=== PATIENT | female | born 1935 | race Caucasian/White ===

== ENCOUNTER → 2017-01-21 | Outpatient (CLI) | payer MEDICARE ==
--- NOTE | 2017-01-21 10:53 | MM ---
Reason for exam: follow-up at short interval from prior study. Last mammogram was performed 6 months ago. History: Patient is postmenopausal. Benign US biopsy breast VAD LT of the left breast, July 23, 2016. Benign excisional biopsy of the right breast, 1971. Took estrogen for 18 years beginning at age 58. Physical Findings: Nurse did not find any significant physical abnormalities on exam. MG 3D Diag Mammo W/Cad LT CC and MLO view(s) were taken of the left breast. Prior study comparison: July 23, 2016, left breast MG diagnostic mammo LT wo CAD. June 27, 2016, left breast MG work up mamm w CAD LT. April 18, 2015, bilateral MG screening mammo w CAD. May 12, 2013, bilateral digital screening mammo w/CAD. There are scattered fibroglandular densities. Previous mammotome biopsy in the left breast. The originally questioned subareolar asymmetry is less defined without any persisting abnormality on 3D. At the clip site, there is new asymmetry on the MLO, presumed post biopsy change. NO CC correlate. Reassess in 6 months. These results were verbally communicated with the patient and result sheet given to the patient on 01/21/17. ASSESSMENT: Probably benign, BI-RAD 3 RECOMMENDATION: Follow-up diagnostic mammogram of both breasts in 6 months.
== END | disposition home or self-care (01) ==
LOC: RADMAMWWP 10:01
PROVIDERS: ATTEND Surgery
DX: R92.8 Other abnormal and inconclusive findings on diagnostic imaging of breast (principal)
CPT/HCPCS: G0206; G0279

== ENCOUNTER → 2017-03-31 | Outpatient (CLI) | payer MEDICARE ==
[2017-03-31 11:10] LABS: Blood Urea Nitrogen 17 mg/dL (7-17); Non-African American GFR(MDRD) >60 (>60 ml/min/1.73 sqM)
--- NOTE | 2017-03-31 13:00 | CT ---
EXAMINATION TYPE: CT abdomen pelvis w con DATE OF EXAM: 03/31/2017 12:50 PM COMPARISON: 03/21/2010 HISTORY: Left lower quadrant abdominal pain CT DLP: 621.6 mGycm CONTRAST: CT scan of the abdomen and pelvis is performed with Oral Contrast and with IV Contrast, patient injec kraig with 100 mL of Omnipaque 300. FINDINGS: LUNG BASES-: No visible nodule. No infiltrate. LIVER/GB: No calcified gallstones. No space occupying hepatic lesion. Biliary tree is of normal ca liber. PANCREAS: No inflammation. No distinct mass. SPLEEN: No splenic enlargement. Several small hypoattenuating splenic lesions may reflect cysts or h emangiomas. ADRENALS: No nodule. No thickening. KIDNEYS/BLADDER: No hydronephrosis. No nephrolithiasis. Simple cyst upper pole right kidney measur ing 1.7 cm. Renal parenchymal thinning mid pole left kidney. Extrarenal pelvis seen bilaterally. Urin sekou bladder grossly unremarkable. BOWEL: Normal appendix. Normal bowel caliber. No inflammation. There is moderate fecal stasis. GENITAL ORGANS: No gross abnormality. LYMPH NODES: No greater than 1cm abdominal or pelvic lymph nodes are appreciated. AORTA: No significant abnormality. OSSEOUS STRUCTURES: Degenerative changes of the spine with the thoracolumbar scoliosis. OTHER: No significant additional abnormality is seen. IMPRESSION: 1. No significant abnormality to account for the patient's symptoms.
== END | disposition home or self-care (01) ==
LOC: RADCTMAIN 10:23
PROVIDERS: ATTEND Surgery
DX: R10.84 Generalized abdominal pain (principal)
CPT/HCPCS: 82565; 84520; 74177; Q9967

== ENCOUNTER 2017-05-07 06:53 | Day surgery (SDC) | payer MEDICARE ==
[2017-05-05 16:14] VITALS: BMI 26.5
[~2017-05-07 06:53] MED LIST: LACTATED RINGERS 1,000 ML IV SCH
[2017-05-07 07:17] VITALS: TEMP 98
[2017-05-07] MEDS ORDERED: PROPOFOL 10 MG/ML 20 ML VIAL IV ONE (07:36)
[2017-05-07] MEDS ORDERED: LIDOCAINE 1% INJ 10MG/ML (20 ML MDV) ONE (07:36)
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
--- NOTE | 2017-05-07 07:55 | P.OP ---
Date of Procedure: 05/07/17 Preoperative Diagnosis: Left lower quadrant pain Postoperative Diagnosis: Mild diverticulosis Right colon polyp Procedure(s) Performed: Colonoscopy Implants: Anesthesia: MAC Surgeon: Lucio Thomas Pathology: other (Right colon polyp) Condition: stable Disposition: PACU Indications for Procedure: Operative Findings: Description of Procedure: The patient's placed on the endoscopy table lateral position. He received IV sedation. Digital rectal exam was performed which revealed no abnormalities. Flexible colonoscope was then placed patient anus and passed throughout the entire colon. The ileocecal valve was visualized. The cecum was visualized. There was a small polyp seen. This removed the forcep. The remainder of the ascending colon and transverse colon appeared normal. In the descending; was mild diverticular changes. Scope was brought back the rectum and this appeared normal. Scope was withdrawn for patient.
[2017-05-07 08:02] VITALS: RESP 16
[2017-05-07 08:15] VITALS: BP 159/74; PULSE 60
== END 2017-05-07 09:04 | disposition home or self-care (01) ==
LOC: ORWHC2ENDO 06:53
PROVIDERS: ATTEND Surgery
DX: D12.2 Benign neoplasm of ascending colon (principal); K57.30 Diverticulosis of large intestine without perforation or abscess without bleeding; E78.5 Hyperlipidemia, unspecified; I10 Essential (primary) hypertension; G40.909 Epilepsy, unspecified, not intractable, without status epilepticus; E07.9 Disorder of thyroid, unspecified; Z79.82 Long term (current) use of aspirin; Z79.899 Other long term (current) drug therapy; Z88.1 Allergy status to other antibiotic agents; Z88.5 Allergy status to narcotic agent; Z88.8 Allergy status to other drugs, medicaments and biological substances; Z88.6 Allergy status to analgesic agent
CPT/HCPCS: 88305; 45380; J2001; J2704

== ENCOUNTER 2017-06-29 15:31 | Emergency (ER) | payer MEDICARE ==
[2017-06-29 15:43] VITALS: RESP 16
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
[2017-06-29 16:55] LABS: Basophils % (A) 1 %; CH 30.5; CHCM 33.2; Eosinophils # (A) 0.1 k/uL (0-0.7); Eosinophils % (A) 3 %; HCT 41.9 % (34.0-46.0); HDW 2.34; HGB 13.6 gm/dL (11.4-16.0); Luc # (Auto) 0.09; Luc % (Auto) 2; Lymphocytes # (A) 1.7 k/uL (1.0-4.8); Lymphocytes % (A) 34 %; MCH 30.1 pg (25.0-35.0); MCHC 32.6 g/dL (31.0-37.0); MCV 92.2 fL (80.0-100.0); Mean Platelet Volume 8.9; Monocytes # (A) 0.3 k/uL (0-1.0); Monocytes % (A) 6 %; Neutrophils # (A) 2.8 k/uL (1.3-7.7); Neutrophils % (A) 55 %; RBC 4.54 m/uL (3.80-5.40); RDW 14.4 % (11.5-15.5); WBC 5.1 k/uL (3.8-10.6); WBC (Perox) 5.11
[2017-06-29 17:00] LABS: ALT 33 U/L (9-52); AST 41 U/L (14-36); Alkaline Phosphatase 97 U/L (38-126); Anion Gap 9 mmol/L; Blood Urea Nitrogen 15 mg/dL (7-17); Calcium 9.9 mg/dL (8.4-10.2); Carbon Dioxide 26 mmol/L (22-30); Chloride 105 mmol/L (98-107); Glucose 105 mg/dL (74-99); Non-African American GFR(MDRD) >60 (>60 ml/min/1.73 sqM); Sodium 140 mmol/L (137-145); Total Bilirubin 0.5 mg/dL (0.2-1.3); Total Protein 7.5 g/dL (6.3-8.2)
[2017-06-29 17:04] LABS: Appearance,Urine Clear (Clear); Bilirubin,Urine Negative (Negative); Glucose,Urine (UA) Negative (Negative); Ketones,Urine Negative (Negative); Leukocyte Esterase,Urine Negative (Negative); Nitrite,Urine Negative (Negative); Protein,Urine Negative (Negative); Specific Gravity,Urine 1.004 (1.001-1.035); UA Billing (MACRO vs. MICRO) CHEM; Urobilinogen,Urine <2.0 mg/dL (<2.0)
--- NOTE | 2017-06-29 17:10 | XR ---
EXAMINATION TYPE: XR chest 2V DATE OF EXAM: 06/29/2017 COMPARISON: 07/31/2015 HISTORY: Shortness of breath, fatigue and lower extremity swelling. History of hypertension. TECHNIQUE: Frontal and lateral views of the chest are obtained. FINDINGS: There is no focal air space opacity, pleural effusion, or pneumothorax seen. The cardiac silhouette size is again prominent. No acute fracture is seen. Old fracture deformities are seen on t he right. S-shaped scoliotic curvature is appreciated of the visualized thoracolumbar spine, slightly deviating the superior mediastinum. There is also generalized osseous demineralization. IMPRESSION: No acute cardiopulmonary process, unchanged from the prior.
--- NOTE | 2017-06-29 18:42 | US ---
EXAMINATION TYPE: US venous doppler duplex LE LT DATE OF EXAM: 06/29/2017 6:27 PM COMPARISON: NONE CLINICAL HISTORY: Swelling. left leg edema SIDE PERFORMED: Left TECHNIQUE: The lower extremity deep venous system is examined utilizing real time linear array sonog traci with graded compression, doppler sonography and color-flow sonography. VESSELS IMAGED: External Iliac Vein (EIV) Common Femoral Vein Deep Femoral Vein Greater Saphenous Vein * Femoral Vein Popliteal Vein Small Saphenous Vein * Proximal Calf Veins (* superficial vessels) Left Leg: No evidence of DVT Grayscale, color doppler, spectral doppler imaging performed of the deep veins of the lower extremiti es. There is normal flow, compressibility, vascular waveforms bilaterally. IMPRESSION: No evidence of deep venous thrombosis of the left lower extremity.
[2017-06-29 18:53] VITALS: BP 179/86; PULSE 69; TEMP 98.3
== END 2017-06-29 19:05 | disposition home or self-care (01) ==
LOC: EC 15:31
DX: R53.83 Other fatigue (principal); M79.89 Other specified soft tissue disorders; R06.02 Shortness of breath; R00.2 Palpitations; E78.5 Hyperlipidemia, unspecified; I10 Essential (primary) hypertension; E07.9 Disorder of thyroid, unspecified; G40.909 Epilepsy, unspecified, not intractable, without status epilepticus; Z88.1 Allergy status to other antibiotic agents; Z88.5 Allergy status to narcotic agent; Z88.8 Allergy status to other drugs, medicaments and biological substances; Z91.018 Allergy to other foods; Z79.82 Long term (current) use of aspirin; Z79.899 Other long term (current) drug therapy
CPT/HCPCS: 36415; 71020; 80053; 81003; 83735; 83880; 84443; 85025; 86850; 86900; 86901; 87086; 93005; 99285

== ENCOUNTER 2017-07-12 10:26 | Emergency (ER) | payer MEDICARE ==
[2017-07-12 10:33] VITALS: RESP 18; TEMP 98.9
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
[2017-07-12 11:11] VITALS: BP 149/67
[2017-07-12 11:12] LABS: Basophils % (A) 1 %; CHCM 33.1; Eosinophils # (A) 0.1 k/uL (0-0.7); Eosinophils % (A) 2 %; HCT 41.1 % (34.0-46.0); Luc # (Auto) 0.12; Luc % (Auto) 2; Lymphocytes # (A) 1.4 k/uL (1.0-4.8); Lymphocytes % (A) 28 %; MCH 30.9 pg (25.0-35.0); Mean Platelet Volume 8.7; Monocytes # (A) 0.4 k/uL (0-1.0); Monocytes % (A) 7 %; Neutrophils % (A) 60 %; RBC 4.52 m/uL (3.80-5.40); RDW 13.7 % (11.5-15.5); WBC 5.1 k/uL (3.8-10.6); WBC (Perox) 4.95
[2017-07-12 11:25] LABS: ALT 29 U/L (9-52); AST 33 U/L (14-36); Alkaline Phosphatase 104 U/L (38-126); Anion Gap 9 mmol/L; Blood Urea Nitrogen 15 mg/dL (7-17); Calcium 9.6 mg/dL (8.4-10.2); Carbon Dioxide 28 mmol/L (22-30); Chloride 105 mmol/L (98-107); Glucose 104 mg/dL (74-99); Magnesium 1.7 mg/dL (1.6-2.3); Non-African American GFR(MDRD) >60 (>60 ml/min/1.73 sqM); Sodium 142 mmol/L (137-145); Total Bilirubin 0.1 mg/dL (0.2-1.3); Total Protein 6.9 g/dL (6.3-8.2)
--- NOTE | 2017-07-12 11:26 | XR ---
EXAMINATION TYPE: XR chest 2V DATE OF EXAM: 07/12/2017 COMPARISON: 06/29/2017 INDICATION: Difficulty breathing, dyspnea TECHNIQUE: Frontal and lateral views of the chest are obtained. FINDINGS: The heart size is normal. The pulmonary vasculature is normal. The lungs are clear. Scoliosis is present. IMPRESSION: 1. No acute pulmonary process.
[2017-07-12 11:39] LABS: INR 1.1 (<1.2); Partial Thromboplastin Time 23.7 sec (22.0-30.0); Prothrombin Time 10.7 sec (9.0-12.0)
[2017-07-12 11:48] LABS: Creatine Kinase 175 U/L (30-135)
[2017-07-12 11:51] LABS: Appearance,Urine Clear (Clear); Bilirubin,Urine Negative (Negative); Glucose,Urine (UA) Negative (Negative); Ketones,Urine Negative (Negative); Leukocyte Esterase,Urine Trace (Negative); Mucus,Urine Rare /hpf; Nitrite,Urine Negative (Negative); Particle Count 470; Protein,Urine Negative (Negative); RBC,Urine <1 /hpf (0-5); Specific Gravity,Urine 1.004 (1.001-1.035); Squamous Epithelial Cell,Urine <1 /hpf (0-4); UA Billing (MACRO vs. MICRO) MICRO; Urobilinogen,Urine <2.0 mg/dL (<2.0); WBC,Urine 1 /hpf (0-5)
[2017-07-12 12:00] LABS: Troponin I <0.012 ng/mL (0.000-0.034)
[2017-07-12 12:14] VITALS: PULSE 61
== END 2017-07-12 13:05 | disposition home or self-care (01) ==
LOC: EC 10:26
DX: R53.83 Other fatigue (principal); R06.02 Shortness of breath; E78.5 Hyperlipidemia, unspecified; I10 Essential (primary) hypertension; G40.909 Epilepsy, unspecified, not intractable, without status epilepticus; E07.9 Disorder of thyroid, unspecified; Z88.1 Allergy status to other antibiotic agents; Z88.2 Allergy status to sulfonamides; Z88.5 Allergy status to narcotic agent; Z88.6 Allergy status to analgesic agent; Z88.8 Allergy status to other drugs, medicaments and biological substances; Z91.018 Allergy to other foods; Z79.82 Long term (current) use of aspirin; Z79.899 Other long term (current) drug therapy
CPT/HCPCS: 36415; 71020; 80053; 81001; 82550; 82553; 83735; 83880; 84439; 84443; 84484; 85025; 85379; 85610; 85730; 99285

== ENCOUNTER → 2017-07-21 | Outpatient (CLI) | payer MEDICARE ==
--- NOTE | 2017-07-22 07:23 | MM ---
Reason for exam: additional evaluation requested from prior study. Last mammogram was performed 6 months ago. History: Patient is postmenopausal. Benign US biopsy breast VAD LT of the left breast, July 23, 2016. Benign excisional biopsy of the right breast, 1971. Took estrogen for 18 years beginning at age 58. Physical Findings: Nurse did not find any significant physical abnormalities on exam. MG 3D Diag Mammo W/Cad LAURY Bilateral CC and MLO view(s) were taken. Prior study comparison: January 21, 2017, left breast MG 3d diag mammo w/cad LT. July 23, 2016, left breast MG diagnostic mammo LT wo CAD. There are scattered fibroglandular densities. Previous ultrasound biopsy within the left breast. There is no discrete abnormality. No significant new findings when compared with previous films. These results were verbally communicated with the patient and result sheet given to the patient on 07/21/17. ASSESSMENT: Negative, BI-RAD 1 RECOMMENDATION: Routine screening mammogram of both breasts in 1 year.
== END | disposition home or self-care (01) ==
LOC: RADMAMWWP 13:25
PROVIDERS: ATTEND Obstetrics & Gynecology
DX: R92.8 Other abnormal and inconclusive findings on diagnostic imaging of breast (principal)
CPT/HCPCS: G0204; G0279

== ENCOUNTER → 2017-08-24 | Outpatient (CLI) | payer MEDICARE | END | disposition home or self-care (01) | LOC: LABWHC1 11:00 | PROVIDERS: ATTEND Psychiatry & Neurology Neurology | DX: G40.909 Epilepsy, unspecified, not intractable, without status epilepticus (principal) | CPT/HCPCS: 36415; 80185 ==

== ENCOUNTER 2018-01-20 09:57 | Emergency (ER) | payer MEDICARE ==
[2018-01-20 10:51] LABS: Basophils % (A) 0 %; Eosinophils # (A) 0.1 k/uL (0-0.7); Eosinophils % (A) 4 %; HCT 36.9 % (34.0-46.0); HGB 12.1 gm/dL (11.4-16.0); Lymphocytes # (A) 1.2 k/uL (1.0-4.8); Lymphocytes % (A) 32 %; MCHC 32.8 g/dL (31.0-37.0); MCV 91.6 fL (80.0-100.0); Mean Platelet Volume 9.8; Monocytes # (A) 0.3 k/uL (0-1.0); Monocytes % (A) 6 %; Neutrophils # (A) 2.2 k/uL (1.3-7.7); Neutrophils % (A) 57 %; Platelet Count 142 k/uL (150-450); RBC 4.03 m/uL (3.80-5.40); RDW 13.8 % (11.5-15.5); WBC 3.9 k/uL (3.8-10.6)
--- NOTE | 2018-01-20 10:54 | XR ---
EXAMINATION TYPE: XR chest 2V DATE OF EXAM: 01/20/2018 COMPARISON: June 2017 HISTORY: Shortness of breath TECHNIQUE: Frontal and lateral views of the chest are obtained. FINDINGS: Scattered senescent parenchymal changes noted. Hyperinflation compatible with COPD. No evidence for infiltrate. No evidence for atelectasis. Heart size is stable. Mediastinal structures are stable and grossly unremarkable. No evidence for hilar prominence. Degenerative changes dorsal spine. IMPRESSION: 1. No evidence for acute pulmonary disease.
[2018-01-20 11:01] LABS: INR 1.1 (<1.2); Partial Thromboplastin Time 23.1 sec (22.0-30.0); Prothrombin Time 10.3 sec (9.0-12.0)
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
[2018-01-20 11:06] LABS: ALT 29 U/L (9-52); AST 27 U/L (14-36); Albumin 3.9 g/dL (3.5-5.0); Alkaline Phosphatase 121 U/L (38-126); Anion Gap 9 mmol/L; Blood Urea Nitrogen 14 mg/dL (7-17); Calcium 9.4 mg/dL (8.4-10.2); Carbon Dioxide 29 mmol/L (22-30); Chloride 104 mmol/L (98-107); Glucose 97 mg/dL (74-99); Sodium 142 mmol/L (137-145); Total Bilirubin 0.1 mg/dL (0.2-1.3); Total Protein 6.6 g/dL (6.3-8.2)
[2018-01-20 11:17] LABS: Creatine Kinase 76 U/L (30-135)
[2018-01-20 11:30] LABS: Creatine Kinase MB 2.1 ng/mL (0.0-2.4); Troponin I <0.012 ng/mL (0.000-0.034)
--- NOTE | 2018-01-20 12:16 | US ---
EXAMINATION TYPE: US venous doppler duplex LE DATE OF EXAM: 01/20/2018 11:52 AM COMPARISON: Left leg 06/29/2017 CLINICAL HISTORY: Patient states she has varicose veins bilaterally and a bruise on her left leg. No pain SIDE PERFORMED: Bilateral TECHNIQUE: The lower extremity deep venous system is examined utilizing real time linear array sonog traci with graded compression, doppler sonography and color-flow sonography. VESSELS IMAGED: External Iliac Vein (EIV) Common Femoral Vein Deep Femoral Vein Greater Saphenous Vein * Femoral Vein Popliteal Vein Small Saphenous Vein * Proximal Calf Veins (* superficial vessels) Grayscale, color doppler, spectral doppler imaging performed of the deep veins of the lower extremiti es. There is normal flow, compressibility, vascular waveforms. Right Leg: Negative for DVT Left Leg: Negative for DVT IMPRESSION: No sonographic evidence of deep venous thrombosis within either lower extremity.
[2018-01-20 13:11] VITALS: BP 180/82; PULSE 64; RESP 16; TEMP 97.5
== END 2018-01-20 13:11 | disposition home or self-care (01) ==
LOC: EC 09:57
DX: I83.893 Varicose veins of bilateral lower extremities with other complications (principal); E78.5 Hyperlipidemia, unspecified; I10 Essential (primary) hypertension; G40.909 Epilepsy, unspecified, not intractable, without status epilepticus; Z79.82 Long term (current) use of aspirin; Z79.899 Other long term (current) drug therapy; Z88.1 Allergy status to other antibiotic agents; Z88.5 Allergy status to narcotic agent; Z88.8 Allergy status to other drugs, medicaments and biological substances
CPT/HCPCS: 36415; 71046; 80053; 82550; 82553; 83735; 83880; 84484; 85025; 85610; 85730; 93005; 93970; 99284

== ENCOUNTER → 2018-07-22 | Outpatient (CLI) | payer MEDICARE ==
--- NOTE | 2018-07-22 14:38 | MM ---
Reason for exam: screening (asymptomatic). Last mammogram was performed 1 year ago. History: Patient is postmenopausal. Benign US biopsy breast VAD LT of the left breast, July 23, 2016. Benign excisional biopsy of the right breast, 1971. Took estrogen for 18 years beginning at age 58. Physical Findings: A clinical breast exam by your physician is recommended on an annual basis and results should be correlated with mammographic findings. MG 3D Screening Mammo W/Cad Bilateral CC and MLO view(s) were taken. Technologist: RT Keny (R)(M) Prior study comparison: July 21, 2017, bilateral MG 3d diag mammo w/cad LAURY. January 21, 2017, left breast MG 3d diag mammo w/cad LT. There are scattered fibroglandular densities. Previous mammotome biopsy in the left breast. No significant changes when compared with prior studies. ASSESSMENT: Negative, BI-RAD 1 RECOMMENDATION: Routine screening mammogram of both breasts in 1 year.
== END | disposition home or self-care (01) ==
LOC: RADMAMWWP 09:49
PROVIDERS: ATTEND Obstetrics & Gynecology
DX: Z12.31 Encounter for screening mammogram for malignant neoplasm of breast (principal)
CPT/HCPCS: 77063; 77067

== ENCOUNTER 2018-08-17 10:14 | Emergency (ER) | payer MEDICARE ==
[2018-08-17 10:21] VITALS: TEMP 98.3
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
[2018-08-17 12:21] LABS: Basophils % (A) 1 %; Eosinophils # (A) 0.1 k/uL (0-0.7); Eosinophils % (A) 3 %; HCT 44.6 % (34.0-46.0); HGB 14.6 gm/dL (11.4-16.0); Lymphocytes # (A) 1.8 k/uL (1.0-4.8); Lymphocytes % (A) 34 %; MCH 30.2 pg (25.0-35.0); MCHC 32.8 g/dL (31.0-37.0); MCV 92.3 fL (80.0-100.0); Mean Platelet Volume 8.6; Monocytes # (A) 0.4 k/uL (0-1.0); Monocytes % (A) 7 %; Neutrophils # (A) 2.9 k/uL (1.3-7.7); Neutrophils % (A) 54 %; Platelet Count 148 k/uL (150-450); RBC 4.83 m/uL (3.80-5.40); RDW 13.4 % (11.5-15.5); WBC 5.3 k/uL (3.8-10.6)
[2018-08-17 12:24] LABS: Appearance,Urine Clear (Clear); Bilirubin,Urine Negative (Negative); Blood,Urine Negative (Negative); Color,Urine Colorless; Glucose,Urine (UA) Negative (Negative); Ketones,Urine Negative (Negative); Leukocyte Esterase,Urine Negative (Negative); Nitrite,Urine Negative (Negative); PH, Urine 7.5 (5.0-8.0); Protein,Urine Negative (Negative); Specific Gravity,Urine 1.004 (1.001-1.035); Urobilinogen,Urine <2.0 mg/dL (<2.0)
[2018-08-17 12:46] LABS: ALT 30 U/L (9-52); AST 39 U/L (14-36); Albumin 4.3 g/dL (3.5-5.0); Alkaline Phosphatase 123 U/L (38-126); Anion Gap 7 mmol/L; Blood Urea Nitrogen 17 mg/dL (7-17); Calcium 9.8 mg/dL (8.4-10.2); Carbon Dioxide 30 mmol/L (22-30); Chloride 105 mmol/L (98-107); Glucose 102 mg/dL (74-99); Potassium 4.5 mmol/L (3.5-5.1); Sodium 142 mmol/L (137-145); Total Bilirubin 0.2 mg/dL (0.2-1.3); Total Protein 7.5 g/dL (6.3-8.2)
[2018-08-17 13:01] VITALS: BP 196/86; PULSE 57; RESP 17
== END 2018-08-17 14:07 | disposition home or self-care (01) ==
LOC: EC 10:14
DX: I83.93 Asymptomatic varicose veins of bilateral lower extremities (principal); E78.5 Hyperlipidemia, unspecified; I10 Essential (primary) hypertension; G40.909 Epilepsy, unspecified, not intractable, without status epilepticus; E07.9 Disorder of thyroid, unspecified; Z98.890 Other specified postprocedural states; Z79.82 Long term (current) use of aspirin; Z79.899 Other long term (current) drug therapy; Z88.1 Allergy status to other antibiotic agents; Z88.2 Allergy status to sulfonamides; Z88.5 Allergy status to narcotic agent; Z88.8 Allergy status to other drugs, medicaments and biological substances; Z91.018 Allergy to other foods
CPT/HCPCS: 36415; 80053; 81003; 83880; 85025; 99283

== ENCOUNTER → 2019-03-02 | Outpatient (CLI) | payer MEDICARE | LOC: LABWHC1 09:27 | PROVIDERS: ATTEND Psychiatry & Neurology Neurology | DX: G40.909 Epilepsy, unspecified, not intractable, without status epilepticus (principal) | CPT/HCPCS: 36415; 80185 ==

== ENCOUNTER 2019-03-31 07:48 | Day surgery (SDC) | payer MEDICARE ==
[2019-03-29 11:42] VITALS: BMI 28.7
[~2019-03-31 07:48] MED LIST changes: +LIDOCAINE 1% 20 ML VIAL (10MG/ML) FOR IV START INTRADERMA PRN
[2019-03-31 08:33] VITALS: TEMP 97.9
[2019-03-31] MEDS ORDERED: PROPOFOL 10 MG/ML 20 ML VIAL IV ONE (08:43)
[2019-03-31] MEDS ORDERED: GLYCOPYRROLATE 0.2 MG/ML 2 ML VIAL ONE (08:43)
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
--- NOTE | 2019-03-31 08:56 | P.OP ---
Date of Procedure: 03/31/19 Preoperative Diagnosis: History of colon polyps Postoperative Diagnosis: Normal colonoscopy Procedure(s) Performed: Colonoscopy Anesthesia: MAC Surgeon: Lucio Thomas Pathology: none sent Condition: stable Disposition: PACU Description of Procedure: PROCEDURE: The patient was placed on the endoscopy table in the lateral position. Digital rectal examination was performed which revealed no abnormalities. The prostate was symmetrical without nodules. Flexible colonoscope was then placed in the patient's anus and passed throughout the entire colon. The ileocecal valve was visualized. The cecum, ascending, transverse, descending and sigmoid colon were normal. The rectum was normal as well. There were no masses, polyps or diverticula noted in the entire colon. SUMMARY OF FINDINGS: Normal colonoscopy.
[2019-03-31 09:08] VITALS: RESP 16
[2019-03-31 09:23] VITALS: BP 124/67; PULSE 57
== END 2019-03-31 12:20 | disposition home or self-care (01) ==
LOC: ORWHC2ENDO 07:48
PROVIDERS: ATTEND Surgery
DX: Z12.11 Encounter for screening for malignant neoplasm of colon (principal); I10 Essential (primary) hypertension; G40.909 Epilepsy, unspecified, not intractable, without status epilepticus; E78.5 Hyperlipidemia, unspecified; M81.0 Age-related osteoporosis without current pathological fracture; Z86.010 Personal history of colon polyps; Z79.82 Long term (current) use of aspirin; Z79.899 Other long term (current) drug therapy; Z88.1 Allergy status to other antibiotic agents; Z88.2 Allergy status to sulfonamides; Z88.5 Allergy status to narcotic agent; Z88.6 Allergy status to analgesic agent; Z87.01 Personal history of pneumonia (recurrent); Z91.018 Allergy to other foods
CPT/HCPCS: J2704; G0105

== ENCOUNTER 2019-04-09 13:44 | Emergency (ER) | payer MEDICARE ==
[2019-04-09 14:12] VITALS: RESP 18; TEMP 98.7
[2019-04-09] MEDS ORDERED: SODIUM CHLORIDE 0.9% 500 ML 500 ML IV STA (14:29)
--- NOTE | 2019-04-09 14:37 | ED ---
General Adult HPI - General Chief complaint: Weakness Stated complaint: Weakness Time Seen by Provider: 04/09/19 14:29 Source: patient Mode of arrival: wheelchair Limitations: physical limitation - History of Present Illness Initial comments: Dictation was produced using [employer] dictation software. please excuse any grammatical, word or spelling errors. Chief Complaint: 83-year-old female presents with 2-3 days of generalized weakness History of Present Illness: Is 83-year-old female she presents with generalized weakness. Patient states she has a history of anemia. She reports that her blood count is dropping however she does not have any objective evidence to suggest that her blood count is dropping. Patient feels that she is pale to her second time. She also feels she is having delayed cap refill in her fingers. Patient a colonoscopy done recently to evaluate her for polyps. Denies any dark stool. No excessive vaginal bleeding. No nausea. Patient has no pain complaints at this time. She states she feels weak to her upper and lower extremities. Denies any asymmetrical sensory deficits. The ROS documented in this emergency department record has been reviewed and confirmed by me. Those systems with pertinent positive or negative responses have been documented in the HPI. All other systems are other negative and/or noncontributory. PHYSICAL EXAM: General Impression: Alert and oriented x3, not in acute distress HEENT: Normocephalic atraumatic, extra-ocular movements intact, pupils equal and reactive to light bilaterally, mucous membranes moist. Cardiovascular: Heart regular rate and rhythm, S1&S2 audible, no murmurs, rubs or gallops Chest: Lungs clear to auscultation bilaterally, no rhonchi, no wheeze, no rales Abdomen: Bowel sounds present, abdomen soft, non-tender, non-distended, no organomegaly, tympany to percussion of the abdomen diffusely. Musculoskeletal: Pulses present and equal in all extremities, no peripheral edema Motor: no focal deficits noted Neurological: CN II-XII grossly intact, no focal motor or sensory deficits noted Skin: Intact with no visualized rashes Psych: Normal affect and mood ED course: 83-year-old female presents chief complaint of generalized weakness. Vital signs upon arrival shows heart rate of 50, respiratory signs within acceptable limits. Patient is well-appearing. Patient and will try baseline. Patient feels well. Labs obtained CBC, coag panel metabolic panel is unremarkable. Urinalysis is negative. Patient given intravenous fluids patient is reevaluated found be in stable medical condition. Spinal clear source of patient's weakness however. There is no significant life-threatening disease at this time. Patient clear for discharge. Return parameters discussed patient told to follow-up with her primary care physician on Thursday. Patient understandable agreeable to disposition. EKG interpretation: Ventricular rate to take him sinus bradycardia, VT interval 168, QS 16, QTC 429. No VT prolongation, no QTC prolongation, no ST or T-wave changes noted. EKG compared to over 2017 showing no changes. Overall, this EKG is unremarkable - Related Data Home Medications Medication Instructions Recorded Confirmed Alendronate Sodium 70 mg PO WE 06/10/15 04/09/19 Aspirin EC [Ecotrin] 81 mg PO DAILY 06/10/15 04/09/19 Multivitamins, Thera [Theragran] 1 tab PO DAILY 06/10/15 04/09/19 Simvastatin [Zocor] 20 mg PO HS 06/10/15 04/09/19 Ascorbic Acid [Vitamin C] 500 mg PO DAILY 06/11/15 04/09/19 Phenytoin Sodium Extended 100 mg PO DAILY@1200 06/11/15 04/09/19 [Dilantin] Phenytoin Sodium Extended 200 mg PO HS 06/11/15 04/09/19 [Dilantin] Ergocalciferol [Vitamin D2] 50,000 unit PO Q14D 05/05/17 04/09/19 Acetaminophen [Tylenol Extra 500 mg PO Q6HR PRN 08/17/18 04/09/19 Strength] Mirabegron [Myrbetriq] 50 mg PO DAILY 03/29/19 04/09/19 Simethicone Chew [Mylicon Chew] 40 mg PO QID PRN 03/29/19 04/09/19 Phenytoin [Dilantin Chew] 25 mg PO Q2D 03/30/19 04/09/19 Phenytoin [Dilantin Chew] 50 mg PO Q2D 03/30/19 04/09/19 amLODIPine [Norvasc] 10 mg PO DAILY 04/09/19 04/09/19 Allergies Allergy/AdvReac Type Severity Reaction Status Date / Time levofloxacin [From Levaquin] Allergy Severe Anaphylaxis Verified 04/09/19 14:38 acetaminophen Allergy Rash/Hives Verified 04/09/19 14:38 [From Tylenol-Codeine #3] cephalexin Allergy Dyspnea Verified 04/09/19 14:38 cetirizine HCl Allergy dry throat Verified 04/09/19 14:38 [From Zyrtec-D] upset stomach clindamycin Allergy Dyspnea Verified 04/09/19 14:38 codeine phosphate Allergy Rash/Hives Verified 04/09/19 14:38 [From Tylenol-Codeine #3] fexofenadine HCl Allergy Itching Verified 04/09/19 14:38 [From Cori-D] fluocinolone acetonide Allergy Itching Verified 04/09/19 14:38 neomycin Allergy Itching Verified 04/09/19 14:38 ofloxacin Allergy Itching Verified 04/09/19 14:38 propoxyphene Allergy rash,consti Verified 04/09/19 14:38 [From Darvocet-N 100] pation pseudoephedrine HCl Allergy Itching Verified 04/09/19 14:38 [From Cori-D] strawberry Allergy Rash/Hives Verified 04/09/19 14:38 sulfamethoxazole Allergy Itching Verified 04/09/19 14:38 moxifloxacin HCl AdvReac Intermediate infection Verified 04/09/19 14:38 [From Vigamox] worse azithromycin AdvReac made Verified 04/09/19 14:38 infection worse. RAW TOMATOES Allergy Rash/Hives Uncoded 04/09/19 14:12 Review of Systems ROS Statement: Those systems with pertinent positive or pertinent negative responses have been documented in the HPI. ROS Other: All systems not noted in ROS Statement are negative. Past Medical History Past Medical History: Hyperlipidemia, Hypertension, Pneumonia, Seizure Disorder Additional Past Medical History / Comment(s): Seizure, blood clot in brain, Diverticulitis, History of Any Multi-Drug Resistant Organisms: None Reported Past Surgical History: Bowel Resection, Hysterectomy, Tonsillectomy Additional Past Surgical History / Comment(s): Tonsillectomy in 60'2, Hysterectomy 84, Cyst removed, D+C 83, Section of intestion removed 1999, Ovary out 08/22/10, yun cataract removal , COLONOSCOPY Past Anesthesia/Blood Transfusion Reactions: Previous Problems w/ Anesthesia Additional Past Anesthesia/Blood Transfusion Reaction / Comment(s): Seizure when they tried to put under for child ,no hx blood transfusion Past Psychological History: No Psychological Hx Reported Smoking Status: Never smoker - Past Family History Father Family Medical History: Cancer Additional Family Medical History / Comment(s): Cancer all over Mother Additional Family Medical History / Comment(s): Emphysema General Exam Limitations: physical limitation Course Vital Signs 04/09/19 14:09 Temperature 98.7 F Pulse Rate 58 L Respiratory 18 Rate Blood Pressure 141/65 O2 Sat by Pulse 95 Oximetry Medical Decision Making - Lab Data Result diagrams: 04/09/19 15:00 04/09/19 15:00 Lab Results 04/09/19 04/09/19 04/09/19 Range/Units 15:00 15:00 15:00 WBC 5.3 (3.8-10.6) k/uL RBC 4.63 (3.80-5.40) m/uL Hgb 13.7 (11.4-16.0) gm/dL Hct 42.2 (34.0-46.0) % MCV 91.1 (80.0-100.0) fL MCH 29.7 (25.0-35.0) pg MCHC 32.6 (31.0-37.0) g/dL RDW 13.5 (11.5-15.5) % Plt Count 168 (150-450) k/uL Neutrophils % 55 % Lymphocytes % 32 % Monocytes % 8 % Eosinophils % 3 % Basophils % 0 % Neutrophils # 2.9 (1.3-7.7) k/uL Lymphocytes # 1.7 (1.0-4.8) k/uL Monocytes # 0.4 (0-1.0) k/uL Eosinophils # 0.1 (0-0.7) k/uL Basophils # 0.0 (0-0.2) k/uL PT (9.0-12.0) sec INR (<1.2) APTT (22.0-30.0) sec Sodium 139 (137-145) mmol/L Potassium 4.6 (3.5-5.1) mmol/L Chloride 105 (98-107) mmol/L Carbon Dioxide 28 (22-30) mmol/L Anion Gap 6 mmol/L BUN 16 (7-17) mg/dL Creatinine 0.37 L (0.52-1.04) mg/dL Est GFR (CKD-EPI)AfAm >90 (>60 ml/min/1.73 sqM) Est GFR (CKD-EPI)NonAf >90 (>60 ml/min/1.73 sqM) Glucose 104 H (74-99) mg/dL Plasma Lactic Acid Wiliam 1.0 (0.7-2.0) mmol/L Calcium 9.8 (8.4-10.2) mg/dL Phosphorus 3.5 (2.5-4.5) mg/dL Magnesium 2.1 (1.6-2.3) mg/dL Total Bilirubin 0.1 L (0.2-1.3) mg/dL AST 26 (14-36) U/L ALT 14 (9-52) U/L Alkaline Phosphatase 141 H (38-126) U/L Troponin I (0.000-0.034) ng/mL Total Protein 7.1 (6.3-8.2) g/dL Albumin 4.2 (3.5-5.0) g/dL TSH 0.864 (0.465-4.680) mIU/L Urine Color Urine Appearance (Clear) Urine pH (5.0-8.0) Ur Specific [place] (1.001-1.035) Urine Protein (Negative) Urine Glucose (UA) (Negative) Urine Ketones (Negative) Urine Blood (Negative) Urine Nitrite (Negative) Urine Bilirubin (Negative) Urine Urobilinogen (<2.0) mg/dL Ur Leukocyte Esterase (Negative) 04/09/19 04/09/19 04/09/19 Range/Units 15:00 15:00 15:00 WBC (3.8-10.6) k/uL RBC (3.80-5.40) m/uL Hgb (11.4-16.0) gm/dL Hct (34.0-46.0) % MCV (80.0-100.0) fL MCH (25.0-35.0) pg MCHC (31.0-37.0) g/dL RDW (11.5-15.5) % Plt Count (150-450) k/uL Neutrophils % % Lymphocytes % % Monocytes % % Eosinophils % % Basophils % % Neutrophils # (1.3-7.7) k/uL Lymphocytes # (1.0-4.8) k/uL Monocytes # (0-1.0) k/uL Eosinophils # (0-0.7) k/uL Basophils # (0-0.2) k/uL PT 9.7 (9.0-12.0) sec INR 0.9 (<1.2) APTT 23.3 (22.0-30.0) sec Sodium (137-145) mmol/L Potassium (3.5-5.1) mmol/L Chloride (98-107) mmol/L Carbon Dioxide (22-30) mmol/L Anion Gap mmol/L BUN (7-17) mg/dL Creatinine (0.52-1.04) mg/dL Est GFR (CKD-EPI)AfAm (>60 ml/min/1.73 sqM) Est GFR (CKD-EPI)NonAf (>60 ml/min/1.73 sqM) Glucose (74-99) mg/dL Plasma Lactic Acid Wiliam (0.7-2.0) mmol/L Calcium (8.4-10.2) mg/dL Phosphorus (2.5-4.5) mg/dL Magnesium (1.6-2.3) mg/dL Total Bilirubin (0.2-1.3) mg/dL AST (14-36) U/L ALT (9-52) U/L Alkaline Phosphatase (38-126) U/L Troponin I <0.012 (0.000-0.034) ng/mL Total Protein (6.3-8.2) g/dL Albumin (3.5-5.0) g/dL TSH (0.465-4.680) mIU/L Urine Color Light Yellow Urine Appearance Clear (Clear) Urine pH 6.0 (5.0-8.0) Ur Specific [place] 1.006 (1.001-1.035) Urine Protein Negative (Negative) Urine Glucose (UA) Negative (Negative) Urine Ketones Negative (Negative) Urine Blood Negative (Negative) Urine Nitrite Negative (Negative) Urine Bilirubin Negative (Negative) Urine Urobilinogen <2.0 (<2.0) mg/dL Ur Leukocyte Esterase Negative (Negative) Disposition Clinical Impression: Weakness Disposition: HOME SELF-CARE Condition: Good Instructions (If sedation given, give patient instructions): Weakness (ED) Is patient prescribed a controlled substance at d/c from ED?: No Referrals: Jhonny Anderson MD [Primary Care Provider] - 1-2 days Time of Disposition: 16:03
[2019-04-09 15:26] LABS: Basophils % (A) 0 %; Eosinophils # (A) 0.1 k/uL (0-0.7); Eosinophils % (A) 3 %; HCT 42.2 % (34.0-46.0); HGB 13.7 gm/dL (11.4-16.0); Lymphocytes # (A) 1.7 k/uL (1.0-4.8); Lymphocytes % (A) 32 %; MCH 29.7 pg (25.0-35.0); MCHC 32.6 g/dL (31.0-37.0); MCV 91.1 fL (80.0-100.0); Mean Platelet Volume 9.2; Monocytes # (A) 0.4 k/uL (0-1.0); Monocytes % (A) 8 %; Neutrophils # (A) 2.9 k/uL (1.3-7.7); Neutrophils % (A) 55 %; Platelet Count 168 k/uL (150-450); RBC 4.63 m/uL (3.80-5.40); RDW 13.5 % (11.5-15.5); WBC 5.3 k/uL (3.8-10.6)
--- NOTE | 2019-04-09 15:26 | XR ---
EXAMINATION TYPE: XR abdomen acute w cxr DATE OF EXAM: 04/09/2019 COMPARISON: NONE HISTORY: Weakness and anemia TECHNIQUE: Supine, upright, and left side down lateral decubitus views of the abdomen are obtained. FINDINGS: Rotatory scoliosis is seen of the thoracolumbar spine with subsequent tortuosity of the aor ta. Old rib fractures are seen of the right hemithorax. Cardia mediastinal silhouette is upper limits of normal. No focal consolidation, pleural effusion or pneumothorax. Minimal left basilar subsegment al atelectasis is seen. There is diffuse osseous demineralization present. No dilated large or small bowel. Moderate degree fecal stasis. No pneumoperitoneum. IMPRESSION: Minimal left basilar subsegmental atelectasis and moderate degree fecal stasis. Nonobstructive bowel gas pattern. No pneumoperitoneum.
[2019-04-09 15:29] LABS: Appearance,Urine Clear (Clear); Bilirubin,Urine Negative (Negative); Blood,Urine Negative (Negative); Color,Urine Light Yellow; Glucose,Urine (UA) Negative (Negative); Ketones,Urine Negative (Negative); Leukocyte Esterase,Urine Negative (Negative); Nitrite,Urine Negative (Negative); Protein,Urine Negative (Negative); Specific Gravity,Urine 1.006 (1.001-1.035); Urobilinogen,Urine <2.0 mg/dL (<2.0)
[2019-04-09 15:31] LABS: INR 0.9 (<1.2); Partial Thromboplastin Time 23.3 sec (22.0-30.0); Prothrombin Time 9.7 sec (9.0-12.0)
[2019-04-09 15:32] LABS: ALT 14 U/L (9-52); AST 26 U/L (14-36); Albumin 4.2 g/dL (3.5-5.0); Alkaline Phosphatase 141 U/L (38-126); Anion Gap 6 mmol/L; Blood Urea Nitrogen 16 mg/dL (7-17); Calcium 9.8 mg/dL (8.4-10.2); Carbon Dioxide 28 mmol/L (22-30); Chloride 105 mmol/L (98-107); Glucose 104 mg/dL (74-99); Magnesium 2.1 mg/dL (1.6-2.3); Phosphorus 3.5 mg/dL (2.5-4.5); Potassium 4.6 mmol/L (3.5-5.1); Sodium 139 mmol/L (137-145); Total Bilirubin 0.1 mg/dL (0.2-1.3); Total Protein 7.1 g/dL (6.3-8.2)
[2019-04-09 16:21] VITALS: BP 153/72; PULSE 64
== END 2019-04-09 16:21 | disposition home or self-care (01) ==
LOC: EC 13:44
DX: R53.1 Weakness (principal); E78.5 Hyperlipidemia, unspecified; I10 Essential (primary) hypertension; G40.909 Epilepsy, unspecified, not intractable, without status epilepticus; Z79.82 Long term (current) use of aspirin; Z79.899 Other long term (current) drug therapy; Z88.1 Allergy status to other antibiotic agents; Z88.6 Allergy status to analgesic agent; Z88.8 Allergy status to other drugs, medicaments and biological substances; Z88.5 Allergy status to narcotic agent; Z91.018 Allergy to other foods; Z88.2 Allergy status to sulfonamides
CPT/HCPCS: 36415; 74022; 80053; 81003; 83605; 83735; 84100; 84443; 84484; 85025; 85610; 85730; 86850; 86900; 86901; 93005; 99285

== ENCOUNTER 2019-04-13 10:16 | Inpatient (IN) | payer MEDICARE ==
[2019-04-13 11:48] LABS: Basophils % (A) 0 %; Eosinophils # (A) 0.1 k/uL (0-0.7); Eosinophils % (A) 3 %; HCT 43.2 % (34.0-46.0); HGB 14.1 gm/dL (11.4-16.0); Lymphocytes # (A) 1.6 k/uL (1.0-4.8); Lymphocytes % (A) 30 %; MCH 29.7 pg (25.0-35.0); MCHC 32.7 g/dL (31.0-37.0); MCV 90.7 fL (80.0-100.0); Mean Platelet Volume 9.2; Monocytes # (A) 0.3 k/uL (0-1.0); Monocytes % (A) 5 %; Neutrophils # (A) 3.3 k/uL (1.3-7.7); Neutrophils % (A) 61 %; Platelet Count 161 k/uL (150-450); RBC 4.77 m/uL (3.80-5.40); WBC 5.4 k/uL (3.8-10.6)
--- NOTE | 2019-04-13 11:48 | XR ---
EXAMINATION TYPE: XR chest 2V DATE OF EXAM: 04/13/2019 COMPARISON: Prior chest x-ray 01/20/2018 HISTORY: Weakness and shortness of breath TECHNIQUE: Frontal and lateral views of the chest are obtained. FINDINGS: There is a tortuous aorta, underlying scoliosis. Aorta is dense. Old right-sided rib fract ures again seen. There is no evident airspace disease, pneumothorax, or pleural effusion. Heart size is stable. Prominent lung volume may be indicative of underlying COPD. IMPRESSION: No acute cardiopulmonary process.
[2019-04-13 12:03] LABS: INR 0.9 (<1.2); Partial Thromboplastin Time 23.3 sec (22.0-30.0)
[2019-04-13 12:05] LABS: ALT 23 U/L (9-52); AST 38 U/L (14-36); Albumin 4.3 g/dL (3.5-5.0); Alkaline Phosphatase 129 U/L (38-126); Anion Gap 5 mmol/L; Blood Urea Nitrogen 14 mg/dL (7-17); Calcium 9.7 mg/dL (8.4-10.2); Carbon Dioxide 28 mmol/L (22-30); Chloride 107 mmol/L (98-107); Creatine Kinase 94 U/L (30-135); Glucose 101 mg/dL (74-99); Magnesium 2.2 mg/dL (1.6-2.3); Phosphorus 3.5 mg/dL (2.5-4.5); Potassium 4.5 mmol/L (3.5-5.1); Sodium 140 mmol/L (137-145); Total Bilirubin 0.3 mg/dL (0.2-1.3); Total Protein 7.2 g/dL (6.3-8.2)
--- NOTE | 2019-04-13 12:48 | ED ---
Weakness HPI - General Chief complaint: Weakness Stated complaint: weakness, bilat leg swelling Time Seen by Provider: 04/13/19 10:56 Source: patient, RN notes reviewed, old records reviewed Mode of arrival: wheelchair Limitations: no limitations - History of Present Illness Initial comments: This is an 81-year-old female the ER today. She presents today for evaluation of not feeling well generalized weakness, patient states she is increasing exertional dyspnea lower extremity edema. Symptoms are progressively worsening. She's had prior ER visit as well as prior doctors this is the past 2 weeks with similar complaints, the platelet complaints and symptoms just keep getting worse. states patient is also unable to sleep unable sleep at night. Patient denies significant shortness of breath with lying flat at night but states that she cannot fall asleep as well. Denies chest pain. Patient has history of high blood pressure high cholesterol MD Complaint: generalized weakness -: week(s) Location: generalized Severity: mild Severity scale (1-10): 3 Consistency: constant Improves with: none Worsens with: movement, exertion Context: recent illness, history of similar Associated Symptoms: fever/chills, nausea/vomiting, shortness of breath - Related Data Home Medications Medication Instructions Recorded Confirmed Alendronate Sodium 70 mg PO WE 06/10/15 04/13/19 Aspirin EC [Ecotrin] 81 mg PO DAILY 06/10/15 04/13/19 Multivitamins, Thera [Theragran] 1 tab PO DAILY 06/10/15 04/13/19 Simvastatin [Zocor] 20 mg PO HS 06/10/15 04/13/19 Ascorbic Acid [Vitamin C] 500 mg PO DAILY 06/11/15 04/13/19 Phenytoin Sodium Extended 100 mg PO DAILY@1200 06/11/15 04/13/19 [Dilantin] Phenytoin Sodium Extended 200 mg PO HS 06/11/15 04/13/19 [Dilantin] Ergocalciferol [Vitamin D2] 50,000 unit PO Q14D 05/05/17 04/13/19 Simethicone Chew [Mylicon Chew] 40 mg PO QID PRN 03/29/19 04/13/19 Phenytoin [Dilantin Chew] 25 mg PO Q48H 03/30/19 04/13/19 Phenytoin [Dilantin Chew] 50 mg PO Q48H 03/30/19 04/13/19 amLODIPine [Norvasc] 10 mg PO DAILY 04/09/19 04/13/19 Allergies Allergy/AdvReac Type Severity Reaction Status Date / Time levofloxacin [From Levaquin] Allergy Severe Anaphylaxis Verified 04/13/19 11:10 acetaminophen Allergy Rash/Hives Verified 04/13/19 11:10 [From Tylenol-Codeine #3] cephalexin Allergy Dyspnea Verified 04/13/19 11:10 cetirizine HCl Allergy dry throat Verified 04/13/19 11:10 [From Zyrtec-D] upset stomach clindamycin Allergy Dyspnea Verified 04/13/19 11:10 codeine phosphate Allergy Rash/Hives Verified 04/13/19 11:10 [From Tylenol-Codeine #3] fexofenadine HCl Allergy Itching Verified 04/13/19 11:10 [From Cori-D] fluocinolone acetonide Allergy Itching Verified 04/13/19 11:10 neomycin Allergy Itching Verified 04/13/19 11:10 ofloxacin Allergy Itching Verified 04/13/19 11:10 propoxyphene Allergy rash,consti Verified 04/13/19 11:10 [From Darvocet-N 100] pation pseudoephedrine HCl Allergy Itching Verified 04/13/19 11:10 [From Cori-D] strawberry Allergy Rash/Hives Verified 04/13/19 10:33 sulfamethoxazole Allergy Itching Verified 04/13/19 11:10 moxifloxacin HCl AdvReac Intermediate infection Verified 04/13/19 11:10 [From Vigamox] worse azithromycin AdvReac made Verified 04/13/19 11:10 infection worse. RAW TOMATOES Allergy Rash/Hives Uncoded 04/13/19 10:33 Review of Systems ROS Statement: Those systems with pertinent positive or pertinent negative responses have been documented in the HPI. ROS Other: All systems not noted in ROS Statement are negative. Past Medical History Past Medical History: Hyperlipidemia, Hypertension, Pneumonia, Seizure Disorder Additional Past Medical History / Comment(s): Seizure, blood clot in brain, Diverticulitis, History of Any Multi-Drug Resistant Organisms: None Reported Past Surgical History: Bowel Resection, Hysterectomy, Tonsillectomy Additional Past Surgical History / Comment(s): Tonsillectomy in 60'2, Hysterectomy 84, Cyst removed, D+C 83, Section of intestion removed 1999, Ovary out 08/22/10, yun cataract removal , COLONOSCOPY Past Anesthesia/Blood Transfusion Reactions: Previous Problems w/ Anesthesia Additional Past Anesthesia/Blood Transfusion Reaction / Comment(s): Seizure when they tried to put under for child ,no hx blood transfusion Past Psychological History: No Psychological Hx Reported Smoking Status: Never smoker - Past Family History Father Family Medical History: Cancer Additional Family Medical History / Comment(s): Cancer all over Mother Additional Family Medical History / Comment(s): Emphysema General Exam Limitations: no limitations General appearance: alert, in no apparent distress Head exam: Present: atraumatic, normocephalic, normal inspection Eye exam: Present: normal appearance, PERRL, EOMI. Absent: scleral icterus, conjunctival injection, periorbital swelling ENT exam: Present: normal exam, mucous membranes moist Neck exam: Present: normal inspection. Absent: tenderness, meningismus, lymphadenopathy Respiratory exam: Present: normal lung sounds bilaterally. Absent: respiratory distress, wheezes, rales, rhonchi, stridor Cardiovascular Exam: Present: normal rhythm, bradycardia, normal heart sounds. Absent: systolic murmur, diastolic murmur, rubs, gallop, clicks GI/Abdominal exam: Present: soft, normal bowel sounds. Absent: distended, tenderness, guarding, rebound, rigid Extremities exam: Present: normal inspection, full ROM, normal capillary refill. Absent: tenderness, pedal edema, joint swelling, calf tenderness Back exam: Present: normal inspection Neurological exam: Present: alert, oriented X3, CN II-XII intact Psychiatric exam: Present: normal affect, normal mood Skin exam: Present: warm, dry, intact, normal color. Absent: rash Course Vital Signs 04/13/19 04/13/19 04/13/19 10:29 11:22 11:36 Temperature 98.2 F Pulse Rate 55 L 60 Pulse Rate [ 60 Bilateral Complex Manager ] Respiratory 16 18 Rate Blood Pressure 172/73 164/72 O2 Sat by Pulse 98 100 Oximetry - Reevaluation(s) Reevaluation #1: 04/13/19 12:53 Medical record and prior ER visits are reviewed Reevaluation #2: 04/13/19 12:53 pt she no acute distress remains without chest pain EKG Findings - EKG Comments: EKG Findings:: EKG shows sinus rhythm rate of 60, PA 174, QRS 112, QTc 440 Medical Decision Making - Medical Decision Making 83 female the ER for evaluation of persistent weakness dyspnea. Not feeling we ll. Patient was seen in our ER about 5-6 days ago with similar complaint complaints of breath for about 2 weeks now. Patient is found to have elevated troponin, patient be admitted for non-STEMI - Lab Data Result diagrams: 04/13/19 11:34 04/13/19 11:34 Lab Results 04/13/19 04/13/19 04/13/19 Range/Units 11:34 11:34 11:34 WBC 5.4 (3.8-10.6) k/uL RBC 4.77 (3.80-5.40) m/uL Hgb 14.1 (11.4-16.0) gm/dL Hct 43.2 (34.0-46.0) % MCV 90.7 (80.0-100.0) fL MCH 29.7 (25.0-35.0) pg MCHC 32.7 (31.0-37.0) g/dL RDW 14.0 (11.5-15.5) % Plt Count 161 (150-450) k/uL Neutrophils % 61 % Lymphocytes % 30 % Monocytes % 5 % Eosinophils % 3 % Basophils % 0 % Neutrophils # 3.3 (1.3-7.7) k/uL Lymphocytes # 1.6 (1.0-4.8) k/uL Monocytes # 0.3 (0-1.0) k/uL Eosinophils # 0.1 (0-0.7) k/uL Basophils # 0.0 (0-0.2) k/uL PT (9.0-12.0) sec INR (<1.2) APTT (22.0-30.0) sec Sodium 140 (137-145) mmol/L Potassium 4.5 (3.5-5.1) mmol/L Chloride 107 (98-107) mmol/L Carbon Dioxide 28 (22-30) mmol/L Anion Gap 5 mmol/L BUN 14 (7-17) mg/dL Creatinine 0.46 L (0.52-1.04) mg/dL Est GFR (CKD-EPI)AfAm >90 (>60 ml/min/1.73 sqM) Est GFR (CKD-EPI)NonAf >90 (>60 ml/min/1.73 sqM) Glucose 101 H (74-99) mg/dL Calcium 9.7 (8.4-10.2) mg/dL Phosphorus 3.5 (2.5-4.5) mg/dL Magnesium 2.2 (1.6-2.3) mg/dL Total Bilirubin 0.3 (0.2-1.3) mg/dL AST 38 H (14-36) U/L ALT 23 (9-52) U/L Alkaline Phosphatase 129 H (38-126) U/L Creatine Kinase 94 (30-135) U/L Troponin I (0.000-0.034) ng/mL NT-Pro-B Natriuret Pep 388 pg/mL Total Protein 7.2 (6.3-8.2) g/dL Albumin 4.3 (3.5-5.0) g/dL 04/13/19 04/13/19 Range/Units 11:34 11:34 WBC (3.8-10.6) k/uL RBC (3.80-5.40) m/uL Hgb (11.4-16.0) gm/dL Hct (34.0-46.0) % MCV (80.0-100.0) fL MCH (25.0-35.0) pg MCHC (31.0-37.0) g/dL RDW (11.5-15.5) % Plt Count (150-450) k/uL Neutrophils % % Lymphocytes % % Monocytes % % Eosinophils % % Basophils % % Neutrophils # (1.3-7.7) k/uL Lymphocytes # (1.0-4.8) k/uL Monocytes # (0-1.0) k/uL Eosinophils # (0-0.7) k/uL Basophils # (0-0.2) k/uL PT 10.0 (9.0-12.0) sec INR 0.9 (<1.2) APTT 23.3 (22.0-30.0) sec Sodium (137-145) mmol/L Potassium (3.5-5.1) mmol/L Chloride (98-107) mmol/L Carbon Dioxide (22-30) mmol/L Anion Gap mmol/L BUN (7-17) mg/dL Creatinine (0.52-1.04) mg/dL Est GFR (CKD-EPI)AfAm (>60 ml/min/1.73 sqM) Est GFR (CKD-EPI)NonAf (>60 ml/min/1.73 sqM) Glucose (74-99) mg/dL Calcium (8.4-10.2) mg/dL Phosphorus (2.5-4.5) mg/dL Magnesium (1.6-2.3) mg/dL Total Bilirubin (0.2-1.3) mg/dL AST (14-36) U/L ALT (9-52) U/L Alkaline Phosphatase (38-126) U/L Creatine Kinase (30-135) U/L Troponin I 0.046 H* (0.000-0.034) ng/mL NT-Pro-B Natriuret Pep pg/mL Total Protein (6.3-8.2) g/dL Albumin (3.5-5.0) g/dL - Radiology Data Radiology results: report reviewed (Chest x-rays negative for acute disease), image reviewed Critical Care Time Critical Care Time: Yes Total Critical Care Time: 31 Disposition Clinical Impression: Weakness, Dyspnea, NSTEMI (non-ST elevated myocardial infarction) Disposition: ADMITTED IP TO THIS HOSP Condition: Fair Is patient prescribed a controlled substance at d/c from ED?: No Referrals: Jhonny Anderson MD [Primary Care Provider] - 1-2 days
[2019-04-13] MEDS ORDERED: NITROGLYCERIN SL TABS 0.4 MG TAB SUBLINGUAL PRN (12:55)
[2019-04-13] MEDS ORDERED: HEPARIN SODIUM,PORCINE 5,000 UNIT/ML 1 ML VIAL IV ONE (12:55)
[2019-04-13] MEDS ORDERED: HEPARIN SODIUM,PORCINE 5,000 UNIT/ML 1 ML VIAL IV PRN (12:55)
[2019-04-13] MEDS ORDERED: ASPIRIN 81 MG PO STA (12:55)
[2019-04-13] MEDS ORDERED: SODIUM CHLORIDE 0.9% 1,000 ML IV SCH (13:00)
[2019-04-13] MEDS: HEPARIN SOD,PORK IN 0.45% NACL 25,000 UNIT in 0.45% NACL 1 250ML.BAG IV SCH (13:21)
[2019-04-13] MEDS ORDERED: SIMETHICONE 80 MG CHEWABLE PO PRN (14:01)
[2019-04-13 14:31] VITALS: BMI 28.3
[2019-04-13] MEDS ORDERED: ALENDRONATE SODIUM PO SCH (15:00)
[2019-04-13] MEDS: PHENYTOIN SODIUM EXTENDED 100 MG CAP PO SCH ×2 (15:15→20:56)
[2019-04-13] MEDS: MULTIVITAMINS, THERA 1 EACH TAB PO SCH (15:15)
[2019-04-13] MEDS: amLODIPine 10 MG TAB PO SCH (15:15)
[2019-04-13] MEDS: SODIUM CHLORIDE 0.9% 1,000 ML IV SCH (17:57)
[2019-04-13] MEDS: LISINOPRIL 5 MG TAB PO SCH (20:57)
[2019-04-13] MEDS: ATORVASTATIN 10 MG TAB PO SCH (20:57)
--- NOTE | 2019-04-14 00:07 | CONS ---
CONSULTATION Mrs. Vail is an 83-year-old female who presented with symptoms of progressive fatigue, lack of energy, shortness of breath and peripheral edema. She has been followed by Dr. Farris on a regular basis. It does not appear that she has any prior documented history of coronary artery disease or congestive heart failure, although she is vague in her history. She has been progressively feeling more fatigued and short of breath. In the emergency room, her troponin was minimally elevated, and cardiology consultation was requested. The patient denies any symptoms of chest discomfort. She denies any chest tightness. She denies any dizziness or palpitation. She has no clear PND or orthopnea and no peripheral edema. Her coronary risk factors are positive for hypertension, hyperlipidemia. She is non-diabetic. MEDICATIONS: Her medications include: 1. Dilantin. 2. Amlodipine 10 mg daily. 3. Simvastatin 20 mg daily. 4. Aspirin once a day. REVIEW OF SYSTEMS: RESPIRATORY SYSTEM: She has no documented history of asthma, emphysema, bronchitis. GI SYSTEM: No recent GI bleeding. No peptic ulcer disease. She underwent colonoscopy recently and it was apparently unremarkable. SYSTEM: No dysuria or hematuria. NERVOUS SYSTEM: No history of stroke or seizure. PHYSICAL EXAMINATION: She is an 83-year-old female, alert, oriented, in no apparent distress. Blood pressure is running in the 150s to 160s. HEAD: Normocephalic. Eyes: Sclerae anicteric. NECK: Good carotid upstroke. No bruit or jugular venous distention. LUNGS: Clear to auscultation. HEART: Regular rate and rhythm. S1, S2. No S3, with systolic murmur heard at the base. No diastolic murmur. No rub. ABDOMEN: Soft, nontender. Positive bowel sounds. No organomegaly. EXTREMITIES: Trace to 1+ edema. LAB DATA/IMAGING: NT-proBNP of 388. Troponin 0.046. BUN and creatinine 14 and 0.46. Potassium 4.5, hemoglobin 14.1. EKG shows sinus mechanisms with occasional PVCs and evidence of left ventricular hypertrophy. IMPRESSION: 1. Symptoms of dyspnea with no evidence to suggest congestive heart failure. 2. Hypertension. 3. Generalized fatigue of unclear etiology. 4. Mild troponin elevation with no associated chest discomfort, of unclear etiology. RECOMMENDATIONS: From the cardiac standpoint, I will obtain echocardiogram with Doppler. I will add an MARYLOU inhibitor to the regimen to optimize the blood pressure. Will see the serial enzymes. Depending on that, further recommendations will be made. Thank you for this consult. Will follow with you. FARIBA / IJN: [id number] /
[2019-04-14 07:08] LABS: Mean Platelet Volume 9.4; Platelet Count 139 k/uL (150-450)
[2019-04-14 07:40] LABS: Anion Gap 3 mmol/L; Blood Urea Nitrogen 16 mg/dL (7-17); Calcium 8.9 mg/dL (8.4-10.2); Carbon Dioxide 29 mmol/L (22-30); Chloride 110 mmol/L (98-107); Cholesterol 100 mg/dL (<200); Glucose 91 mg/dL (74-99); HDL Cholesterol 59 mg/dL (40-60); LDL Cholesterol,Calculated 33 mg/dL (0-99); Potassium 4.1 mmol/L (3.5-5.1); Sodium 142 mmol/L (137-145); Triglycerides 38 mg/dL (<150)
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
[2019-04-14] MEDS: ASCORBIC ACID 500 MG TAB PO SCH (08:47)
[2019-04-14] MEDS: amLODIPine 10 MG TAB PO SCH (08:47)
[2019-04-14] MEDS: ASPIRIN 81 MG PO SCH (08:47)
[2019-04-14] MEDS: LISINOPRIL 5 MG TAB PO SCH ×2 (08:48→20:08)
[2019-04-14] MEDS: MULTIVITAMINS, THERA 1 EACH TAB PO SCH (08:49)
[2019-04-14] MEDS: PHENYTOIN 50 MG CHEWABLE PO SCH (08:50)
[2019-04-14] MEDS ORDERED: ASPIRIN 325 MG TAB PO SCH (09:00)
--- NOTE | 2019-04-14 10:22 | ECHOF ---
Referral Reason:elevTROP MEASUREMENTS -------- HEIGHT: 154.9 cm WEIGHT: 68.0 kg BP: RVIDd: 2.7 cm (< 3.3) IVSd: 1.2 cm (0.6 - 1.1) LVIDd: 4.4 cm (3.9 - 5.3) LVPWd: 1.2 cm (0.6 - 1.1) IVSs: 1.5 cm LVIDs: 3.6 cm LVPWs: 1.7 cm LAESV Index (A-L): 42.85 ml/m Ao Diam: 3.5 cm (2.0 - 3.7) AV Cusp: 1.7 cm (1.5 - 2.6) LA Diam: 3.7 cm (2.7 - 3.8) MV EXCURSION: 15.618 mm (> 18.000) MV EF SLOPE: 64 mm/s (70 - 150) EPSS: 0.5 cm MV E Sukumar: 0.37 m/s MV DecT: 277 ms MV A Sukumar: 0.82 m/s MV E/A Ratio: 0.45 RAP: 5.00 mmHg RVSP: 45.81 mmHg FINDINGS -------- Sinus rhythm with extra systolic beats. This was a technically adequate study. The left ventricular size is normal. There is mild concentric left ventricular hypertrophy. Overa ll left ventricular systolic function is mildly impaired with, an EF between 45 - 50 %. Basal infer olateral appears hypokinetic. The right ventricle is normal in size. LA is severely dilated >40 ml/m2 The right atrial size is normal. Interatrial and interventricular septum intact. The aortic valve is trileaflet and appears structurally normal. The mitral valve leaflets are mildly thickened. Moderate mitral regurgitation is present. [id number] tricuspid regurgitation present. There is mild to moderate pulmonary hypertension. The right ventricular systolic pressure, as measured by Doppler, is 45.81mmHg. Trace/mild (physiologic) pulmonic regurgitation. The aortic root size is normal. Normal inferior vena cava with normal inspiratory collapse consistent with estimated right atrial pre ssure of 5 mmHg. Echo free space indicative of a pericardial fat pad. CONCLUSIONS -------- 1. Sinus rhythm with extra systolic beats. 2. This was a technically adequate study. 3. The left ventricular size is normal. 4. There is mild concentric left ventricular hypertrophy. 5. Overall left ventricular systolic function is mildly impaired with, an EF between 45 - 50 %. 6. Basal inferolateral appears hypokinetic. 7. The right ventricle is normal in size. 8. LA is severely dilated >40 ml/m2 9. The right atrial size is normal. 10. Interatrial and interventricular septum intact. 11. The aortic valve is trileaflet and appears structurally normal. 12. The mitral valve leaflets are mildly thickened. 13. Moderate mitral regurgitation is present. 14. Uhlm-wr-bqrytrtm tricuspid regurgitation present. 15. There is mild to moderate pulmonary hypertension. 16. The right ventricular systolic pressure, as measured by Doppler, is 45.81mmHg. 17. Trace/mild (physiologic) pulmonic regurgitation. 18. The aortic root size is normal. 19. Normal inferior vena cava with normal inspiratory collapse consistent with estimated right atrial pressure of 5 mmHg. 20. Echo free space indicative of a pericardial fat pad. MACHINE CELL TUBER: Felicitas Perez RDCS
[2019-04-14] MEDS: PHENYTOIN SODIUM EXTENDED 100 MG CAP PO SCH ×2 (12:07→20:08)
--- NOTE | 2019-04-14 15:08 | P.PN ---
Subjective Progress Note Date: 04/14/19 This is an 83-year-old female who presented to the hospital with symptoms of progressive fatigue, lack of energy, shortness of breath and peripheral edema. She follows with Dr. Farris in the office on a regular basis. She does not have any prior history of coronary artery disease or congestive heart failure. Patient was seen in consultation yesterday by Dr. Triplett. It is not felt that the patient had any congestive heart failure, she did have mild abnormality in troponin not consistent with acute coronary syndrome. Echocardiogram with Doppler study was performed which revealed an ejection fraction of 45-50%. Patient was seen and examined this morning, feels well, denies any and her breathing is overall stable. Objective - Vital Signs Vital signs: Vital Signs Temp 97.7 F 04/14/19 03:33 Pulse 53 L 04/14/19 03:33 Resp 18 04/14/19 03:33 BP 121/64 04/14/19 03:33 Pulse Ox 95 04/14/19 03:33 Intake & Output 04/13/19 04/14/19 04/14/19 18:59 06:59 18:59 Intake Total 112.403 600 Balance 112.403 600 Weight 68.039 kg 71.5 kg Intake: Intake, IV Titration 112.403 Amount Heparin Sod,Pork in 0.45% 112.403 NaCl 25,000 unit In 0.45 % NaCl 1 250ml.bag @ 12 UNITS/KG/HR 8.165 mls/hr IV .Q24H [facility] Rx#: [id number] Oral 600 Other: Voiding Method Toilet Toilet # Voids 2 1 1 # Bowel Movements 1 1 - Exam PHYSICAL EXAMINATION: GENERAL: 83-year-old female in no acute distress at the time of my examination HEENT: Head is atraumatic, normocephalic. Pupils equal, round. Sclera anicteric. Conjunctiva are clear. Mucous membranes of the mouth are moist. Neck is supple. There is no elevated jugular venous pressure no carotid bruit is heard. HEART EXAMINATION: Heart S1 and S2 1 systolic murmur is heard. CHEST EXAMINATION: Lungs are clear to auscultation and precussion. No chest wall tenderness is noted on palpation or with deep breathing. ABDOMEN: Soft, nontender. Bowel sounds are heard. No organomegaly noted. EXTREMITIES: 2+ peripheral pulses with no evidence of peripheral edema and no calf tenderness noted. NEUROLOGIC patient is awake, alert and oriented 3 . . - Labs CBC & Chem 7: 04/14/19 06:47 04/14/19 06:47 Labs: Abnormal Lab Results - Last 24 Hours (Table) 04/13/19 04/13/19 04/13/19 Range/Units 18:24 18:24 23:22 Plt Count (150-450) k/uL APTT 39.2 H (22.0-30.0) sec Chloride (98-107) mmol/L Creatinine (0.52-1.04) mg/dL Troponin I 0.111 H* 0.104 H* (0.000-0.034) ng/mL 04/14/19 04/14/19 04/14/19 Range/Units 00:50 06:47 06:47 Plt Count 139 L (150-450) k/uL APTT 103.6 H* (22.0-30.0) sec Chloride 110 H (98-107) mmol/L Creatinine 0.45 L (0.52-1.04) mg/dL Troponin I (0.000-0.034) ng/mL 04/14/19 Range/Units 06:47 Plt Count (150-450) k/uL APTT 56.6 H (22.0-30.0) sec Chloride (98-107) mmol/L Creatinine (0.52-1.04) mg/dL Troponin I (0.000-0.034) ng/mL Assessment and Plan Plan: Assessment and plan #1 symptoms of dyspnea with no evidence to suggest congestive heart failure #2 hypertension #3 generalized fatigue #4 mild troponin elevation, not suggestive of acute coronary syndrome. Echocardiogram with Doppler study revealed an ejection fraction of 45-50%. Plan From cardiology's perspective, patient may be able to be discharged home today. We will make a follow-up appointment in the office post discharge. DNP note has been reviewed, I agree with a documented findings and plan of care. Patient was seen and examined.
[2019-04-14] MEDS: HEPARIN SOD,PORK IN 0.45% NACL 25,000 UNIT in 0.45% NACL 1 250ML.BAG IV SCH (15:17)
[2019-04-14] MEDS: SODIUM CHLORIDE 0.9% 1,000 ML IV SCH (17:52)
[2019-04-14] MEDS: ATORVASTATIN 10 MG TAB PO SCH (20:08)
[2019-04-14 20:13] VITALS: RESP 16
[2019-04-15 06:29] LABS: Mean Platelet Volume 8.5; Platelet Count 141 k/uL (150-450)
--- NOTE | 2019-04-15 08:23 | P.DS ---
Providers Date of admission: 04/13/19 13:01 Attending physician: Jhonny Anderson Consults: 04/13/19 12:55 Consult Physician Urgent Consulting Provider: Gaudencio Triplett Consult Reason/Comments: cp Do you want consulting provider notified?: Yes Primary care physician: Jhonny Anderson - Discharge Diagnosis(es) (1) Failure of outpatient treatment Current Visit: No Status: Acute (2) Hypoxia Current Visit: No Status: Acute (3) NSTEMI (non-ST elevated myocardial infarction) Current Visit: Yes Status: Acute Hospital Course: the patient was essentially admitted for significant chestpain with shortness of breath. Elevated troponin was noted with weakness. Myocardial infraction was ruled out and she was discharged in stable condition after being evaluated by echocardiogram enzymatic blood work and cardiology perspective. She is discharged in stable condition tolerating diet and ambulating without difficulty to follow-up with me in about one week. Patient Condition at Discharge: Fair Plan - Discharge Summary Discharge Rx Participant: Yes New Discharge Prescriptions: New Nitroglycerin Sl Tabs [Nitrostat] 0.4 mg SUBLINGUAL Q5M PRN #50 tab PRN Reason: Chest Pain Lisinopril [Zestril] 5 mg PO BID #60 tab Continue Alendronate Sodium 70 mg PO WE Simvastatin [Zocor] 20 mg PO HS Aspirin EC [Ecotrin Low Dose] 81 mg PO DAILY Multivitamins, Thera [Multivitamin (formulary)] 1 tab PO DAILY Phenytoin Sodium Extended [Dilantin] 200 mg PO HS Phenytoin Sodium Extended [Dilantin] 100 mg PO DAILY@1200 Ascorbic Acid [Vitamin C] 500 mg PO DAILY Ergocalciferol [Vitamin D2 (DRISDOL)] 50,000 unit PO Q14D Simethicone Chew [Mylicon Chew] 40 mg PO QID PRN PRN Reason: GAS Phenytoin [Dilantin Chew] 50 mg PO Q48H Phenytoin [Dilantin Chew] 25 mg PO Q48H amLODIPine [Norvasc] 10 mg PO DAILY Discharge Medication List Alendronate Sodium 70 mg PO WE 06/10/15 [History] Aspirin EC [Ecotrin Low Dose] 81 mg PO DAILY 06/10/15 [History] Multivitamins, Thera [Multivitamin (formulary)] 1 tab PO DAILY 06/10/15 [History ] Simvastatin [Zocor] 20 mg PO HS 06/10/15 [History] Ascorbic Acid [Vitamin C] 500 mg PO DAILY 06/11/15 [History] Phenytoin Sodium Extended [Dilantin] 100 mg PO DAILY@1200 06/11/15 [History] Phenytoin Sodium Extended [Dilantin] 200 mg PO HS 06/11/15 [History] Ergocalciferol [Vitamin D2 (DRISDOL)] 50,000 unit PO Q14D 05/05/17 [History] Simethicone Chew [Mylicon Chew] 40 mg PO QID PRN 03/29/19 [History] Phenytoin [Dilantin Chew] 25 mg PO Q48H 03/30/19 [History] Phenytoin [Dilantin Chew] 50 mg PO Q48H 03/30/19 [History] amLODIPine [Norvasc] 10 mg PO DAILY 04/09/19 [History] Lisinopril [Zestril] 5 mg PO BID #60 tab 04/15/19 [Rx] Nitroglycerin Sl Tabs [Nitrostat] 0.4 mg SUBLINGUAL Q5M PRN #50 tab 04/15/19 [Rx] Follow up Appointment(s)/Referral(s): Jhonny Anderson MD [Primary Care Provider] - 1-2 days [facility] Visiting Nurse, [NON-STAFF] - 1-2 Days
[2019-04-15] MEDS: MULTIVITAMINS, THERA 1 EACH TAB PO SCH (08:34)
[2019-04-15] MEDS: ASPIRIN 81 MG PO SCH (08:34)
[2019-04-15] MEDS: amLODIPine 10 MG TAB PO SCH (08:34)
[2019-04-15] MEDS: LISINOPRIL 5 MG TAB PO SCH (08:34)
[2019-04-15] MEDS: ASCORBIC ACID 500 MG TAB PO SCH (08:34)
[2019-04-15] MEDS: PHENYTOIN 50 MG CHEWABLE PO SCH (08:37)
[2019-04-15] MEDS ORDERED: PHENYTOIN 50 MG CHEWABLE PO SCH (09:00)
[2019-04-15 11:09] VITALS: BP 118/69; PULSE 59; TEMP 98.2
--- NOTE | 2019-04-15 12:03 | P.PN ---
Subjective Progress Note Date: 04/15/19 This is an 83-year-old female who presented to the hospital with symptoms of progressive fatigue, lack of energy, shortness of breath and peripheral edema. She follows with Dr. Farris in the office on a regular basis. She does not have any prior history of coronary artery disease or congestive heart failure. Patient was seen in consultation yesterday by Dr. Triplett. It is not felt that the patient had any congestive heart failure, she did have mild abnormality in troponin not consistent with acute coronary syndrome. Echocardiogram with Doppler study was performed which revealed an ejection fraction of 45-50%. Patient was seen and examined this morning, feels well, denies any and her breathing is overall stable. 04/15/2019 Patient seen and examined this morning, overall doing well. Hemodynamically stable. Blood pressure 118/60 with a heart rate in the 60s, 95% on room air. Objective - Vital Signs Vital signs: Vital Signs Temp 98.2 F 04/15/19 08:00 Pulse 59 L 04/15/19 08:00 Resp 16 04/15/19 06:10 BP 118/69 04/15/19 08:00 Pulse Ox 95 04/15/19 08:00 Intake & Output 04/14/19 04/15/19 04/15/19 18:59 06:59 18:59 Intake Total 960 240 Balance 960 240 Weight 69.1 kg Intake: Oral 960 240 Other: Voiding Method Toilet Toilet # Voids 1 1 # Bowel Movements 1 - Exam PHYSICAL EXAMINATION: GENERAL: 83-year-old female in no acute distress at the time of my examination HEENT: Head is atraumatic, normocephalic. Pupils equal, round. Sclera anicteric. Conjunctiva are clear. Mucous membranes of the mouth are moist. Neck is supple. There is no elevated jugular venous pressure no carotid bruit is heard. HEART EXAMINATION: Heart S1 and S2 1 systolic murmur is heard. CHEST EXAMINATION: Lungs are clear to auscultation and precussion. No chest wall tenderness is noted on palpation or with deep breathing. ABDOMEN: Soft, nontender. Bowel sounds are heard. No organomegaly noted. EXTREMITIES: 2+ peripheral pulses with no evidence of peripheral edema and no calf tenderness noted. NEUROLOGIC patient is awake, alert and oriented 3 . . - Labs CBC & Chem 7: 04/15/19 05:42 04/14/19 06:47 Labs: Abnormal Lab Results - Last 24 Hours (Table) 04/15/19 Range/Units 05:42 Plt Count 141 L (150-450) k/uL Assessment and Plan Plan: Assessment and plan #1 symptoms of dyspnea with no evidence to suggest congestive heart failure #2 hypertension #3 generalized fatigue #4 mild troponin elevation, not suggestive of acute coronary syndrome. Echocardiogram with Doppler study revealed an ejection fraction of 45-50%. Plan From cardiology's perspective, patient may be able to be discharged home today. We will make a follow-up appointment in the office post discharge. DNP note has been reviewed, I agree with a documented findings and plan of care. Patient was seen and examined.
[2019-04-15] MEDS: PHENYTOIN SODIUM EXTENDED 100 MG CAP PO SCH (13:34)
[2019-04-23] MEDS ORDERED: ERGOCALCIFEROL 50,000 UNIT CAP PO SCH (09:00)
== END 2019-04-15 14:25 | disposition home health service (06) | DRG 948 ==
LOC: EC 10:16 → 3SCARD 13:01
PROVIDERS: ADMIT Family Medicine; ATTEND Family Medicine
DX: R53.1 Weakness (principal); R53.83 Other fatigue; E03.9 Hypothyroidism, unspecified; E78.00 Pure hypercholesterolemia, unspecified; E78.5 Hyperlipidemia, unspecified; G40.909 Epilepsy, unspecified, not intractable, without status epilepticus; I10 Essential (primary) hypertension; M17.0 Bilateral primary osteoarthritis of knee; R77.9 Abnormality of plasma protein, unspecified; K57.90 Diverticulosis of intestine, part unspecified, without perforation or abscess without bleeding; H93.13 Tinnitus, bilateral; Z79.82 Long term (current) use of aspirin; Z79.899 Other long term (current) drug therapy; Z88.1 Allergy status to other antibiotic agents; Z88.5 Allergy status to narcotic agent; Z88.2 Allergy status to sulfonamides; Z88.8 Allergy status to other drugs, medicaments and biological substances; Z91.018 Allergy to other foods; Z87.01 Personal history of pneumonia (recurrent); Z90.49 Acquired absence of other specified parts of digestive tract; Z90.710 Acquired absence of both cervix and uterus; Z90.721 Acquired absence of ovaries, unilateral; Z98.42 Cataract extraction status, left eye; Z98.41 Cataract extraction status, right eye; Z96.1 Presence of intraocular lens; Z82.5 Family history of asthma and other chronic lower respiratory diseases; Z80.9 Family history of malignant neoplasm, unspecified
CPT/HCPCS: 36415; 71046; 80048; 80053; 80061; 82550; 83735; 83880; 84100; 84443; 84484; 85025; 85049; 85610; 85730; 93005; 93306; 96365; 96366; 96376; 99291

== ENCOUNTER → 2019-07-30 | Outpatient (CLI) | payer MEDICARE ==
--- NOTE | 2019-08-01 10:42 | MM ---
Reason for exam: screening (asymptomatic). Last mammogram was performed 1 year ago. History: Patient is postmenopausal. Benign US biopsy breast VAD LT of the left breast, July 23, 2016. Benign excisional biopsy of the right breast, 1971. Took estrogen for 18 years beginning at age 58. Physical Findings: A clinical breast exam by your physician is recommended on an annual basis and results should be correlated with mammographic findings. MG 3D Screening Mammo W/Cad Bilateral CC and MLO view(s) were taken. Prior study comparison: July 22, 2018, bilateral MG 3d screening mammo w/cad. July 21, 2017, bilateral MG 3d diag mammo w/cad [facility]. The breast tissue is heterogeneously dense. This may lower the sensitivity of mammography. Stable benign calcifications. There is no discrete abnormality. No significant changes when compared with prior studies. ASSESSMENT: Benign, BI-RAD 2 RECOMMENDATION: Routine screening mammogram of both breasts in 1 year.
== END | disposition home or self-care (01) ==
LOC: RADMAMWWP 10:19
PROVIDERS: ATTEND Obstetrics & Gynecology
DX: Z12.31 Encounter for screening mammogram for malignant neoplasm of breast (principal)
CPT/HCPCS: 77063; 77067

== ENCOUNTER → 2019-09-09 | Outpatient (CLI) | payer MEDICARE | END | disposition home or self-care (01) | LOC: LABWHC1 09:57 | PROVIDERS: ATTEND Psychiatry & Neurology Neurology | DX: G40.909 Epilepsy, unspecified, not intractable, without status epilepticus (principal) | CPT/HCPCS: 36415; 80185 ==

== ENCOUNTER 2019-10-07 06:29 | Day surgery (SDC) | payer MEDICARE ==
[2019-10-04 14:56] VITALS: BMI 28.3
[2019-10-07 07:19] VITALS: TEMP 96.7
[2019-10-07] MEDS ORDERED: LIDOCAINE 1% INJ 10MG/ML (20 ML MDV) ONE (07:48)
[2019-10-07] MEDS ORDERED: PROPOFOL 10 MG/ML 20 ML VIAL IV ONE (07:48)
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
--- NOTE | 2019-10-07 08:02 | P.OP ---
Date of Procedure: 10/07/19 Preoperative Diagnosis: Constipation Postoperative Diagnosis: Diverticulosis External hemorrhoids Procedure(s) Performed: Colonoscopy Anesthesia: MAC Surgeon: Lucio Thomas Pathology: none sent Condition: stable Disposition: PACU Description of Procedure: Patient's placed on the endoscopy table in the lateral position. She received IV sedation. Digital rectal exam performed which revealed external hemorrhoids. Flexible colonoscope was then placed patient anus and passed throughout the entire colon. The ileocecal valve was visualized. The cecum, ascending and transverse colon appeared normal. In the descending; was moderate diverticular changes. Scope was then brought back the rectum and this appeared normal. Scope was withdrawn for patient. And internal and external hemorrhoids noted.
[2019-10-07 08:10] VITALS: RESP 16
[2019-10-07 08:46] VITALS: BP 137/69; PULSE 59
== END 2019-10-07 09:21 | disposition home or self-care (01) ==
LOC: ORWHC2ENDO 06:29
PROVIDERS: ATTEND Surgery
DX: K59.00 Constipation, unspecified (principal); K57.30 Diverticulosis of large intestine without perforation or abscess without bleeding; K64.4 Residual hemorrhoidal skin tags; K64.8 Other hemorrhoids; I10 Essential (primary) hypertension; E78.5 Hyperlipidemia, unspecified; I25.2 Old myocardial infarction; I25.10 Atherosclerotic heart disease of native coronary artery without angina pectoris; G40.909 Epilepsy, unspecified, not intractable, without status epilepticus; M17.0 Bilateral primary osteoarthritis of knee; Z90.49 Acquired absence of other specified parts of digestive tract; Z90.710 Acquired absence of both cervix and uterus; Z90.89 Acquired absence of other organs; Z98.41 Cataract extraction status, right eye; Z98.42 Cataract extraction status, left eye; Z80.9 Family history of malignant neoplasm, unspecified; Z79.83 Long term (current) use of bisphosphonates; Z79.82 Long term (current) use of aspirin; Z79.899 Other long term (current) drug therapy; Z88.1 Allergy status to other antibiotic agents; Z88.8 Allergy status to other drugs, medicaments and biological substances; Z88.5 Allergy status to narcotic agent; Z88.6 Allergy status to analgesic agent; Z88.2 Allergy status to sulfonamides; Z91.018 Allergy to other foods
CPT/HCPCS: 45378; J2001; J2704

== ENCOUNTER 2019-10-09 14:09 | Inpatient (IN) | payer MEDICARE ==
[2019-10-09] MEDS ORDERED: MORPHINE SULFATE 4 MG/ML SYRINGE IVP STA (15:01)
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
[2019-10-09] MEDS ORDERED: NALOXONE 0.4 MG/ML 1 ML VIAL IV PRN (15:48)
--- NOTE | 2019-10-09 16:01 | XR ---
EXAMINATION TYPE: XR Hip LT and AP Pelvis DATE OF EXAM: 10/09/2019 COMPARISON: NONE HISTORY: Fall. Pain. TECHNIQUE: A single AP view of the pelvis is obtained. Two views of the left hip are obtained. FINDINGS: The pelvic ring is intact. There is acute nondisplaced intertrochanteric fracture left femu r. There is no dislocation. There is mild acetabular spurring. Sacroiliac joints are intact. IMPRESSION: Acute intertrochanteric fracture left femur.
[2019-10-09 16:11] LABS: Basophils # (A) 0.2 k/uL (0-0.2); Basophils % (A) 2 %; Eosinophils # (A) 0.2 k/uL (0-0.7); Eosinophils % (A) 2 %; HCT 38.5 % (34.0-46.0); HGB 12.9 gm/dL (11.4-16.0); Lymphocytes # (A) 0.9 k/uL (1.0-4.8); Lymphocytes % (A) 9 %; MCH 30.3 pg (25.0-35.0); MCHC 33.4 g/dL (31.0-37.0); MCV 90.7 fL (80.0-100.0); Monocytes # (A) 0.4 k/uL (0-1.0); Monocytes % (A) 4 %; Neutrophils % (A) 82 %; Platelet Count 203 k/uL (150-450); RBC 4.25 m/uL (3.80-5.40); RDW 13.1 % (11.5-15.5); WBC 9.7 k/uL (3.8-10.6)
--- NOTE | 2019-10-09 16:14 | XR ---
EXAMINATION TYPE: XR chest 1V portable DATE OF EXAM: 10/09/2019 COMPARISON: 04/13/2019 HISTORY: Fall. Hip fracture. TECHNIQUE: Single frontal view of the chest is obtained. FINDINGS: There is no heart failure nor confluent pneumonic infiltrate. There are old right-sided he aled rib fractures. Thoracic aorta is atheromatous. There is thoracic dextroscoliosis. IMPRESSION: No active cardiopulmonary disease. No change.
[2019-10-09 16:21] LABS: ALT 23 U/L (9-52); AST 38 U/L (14-36); African American GFR (CKD) >90 (>60 ml/min/1.73 sqM); Alkaline Phosphatase 141 U/L (38-126); Anion Gap 4 mmol/L; Blood Urea Nitrogen 17 mg/dL (7-17); Calcium 9.3 mg/dL (8.4-10.2); Carbon Dioxide 31 mmol/L (22-30); Chloride 102 mmol/L (98-107); Glucose 112 mg/dL (74-99); Non-African American GFR(CKD) 87 (>60 ml/min/1.73 sqM); Sodium 137 mmol/L (137-145); Total Bilirubin 0.2 mg/dL (0.2-1.3)
[2019-10-09 16:31] LABS: INR 0.9 (<1.2); Partial Thromboplastin Time 22.9 sec (22.0-30.0); Prothrombin Time 10.2 sec (9.0-12.0)
[2019-10-09] MEDS: MORPHINE SULFATE 4 MG/ML SYRINGE IV PRN (18:32)
[2019-10-09] MEDS ORDERED: NITROGLYCERIN SL TABS 0.4 MG TAB SUBLINGUAL PRN (18:50)
[2019-10-09] MEDS: ATORVASTATIN 20 MG TAB PO SCH (20:54)
[2019-10-09] MEDS: PHENYTOIN SODIUM EXTENDED 100 MG CAP PO SCH (20:54)
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
[2019-10-10] MEDS: ACETAMINOPHEN TAB 325 MG TAB PO PRN (04:14)
[2019-10-10] MEDS: HYDROcodone/APAP 5-325MG 1 EACH TAB PO PRN ×3 (06:26→21:09)
[2019-10-10] MEDS: TRIAMTERENE-HCTZ 37.5-25MG 1 EACH TAB PO SCH (07:47)
[2019-10-10] MEDS: LOSARTAN 25 MG TAB PO SCH (07:47)
[2019-10-10] MEDS: amLODIPine 5 MG TAB PO SCH (07:49)
[2019-10-10] MEDS: MORPHINE SULFATE 4 MG/ML SYRINGE IV PRN ×3 (09:32→22:53)
[2019-10-10] MEDS: PHENYTOIN 50 MG CHEWABLE PO SCH (11:22)
[2019-10-10] MEDS: PHENYTOIN SODIUM EXTENDED 100 MG CAP PO SCH ×2 (11:23→21:10)
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
[2019-10-10] MEDS ORDERED: LACTATED RINGERS 1,000 ML IV ONE (16:05)
[2019-10-10] MEDS ORDERED: ONDANSETRON 4 MG/2 ML VIAL IVP ONE (17:33)
[2019-10-10] MEDS ORDERED: SUCCINYLCHOLINE CHLORIDE 100 MG/5 ML SYR IV ONE (18:14)
[2019-10-10] MEDS ORDERED: PROPOFOL 10 MG/ML 20 ML VIAL IV ONE (18:14)
[2019-10-10] MEDS ORDERED: DEXAMETHASONE SOD PHOS (MDV) 100 MG/10 ML VIAL ONE (18:14)
[2019-10-10] MEDS ORDERED: ePHEDrine SULFATE/0.9% NACL/PF 50 MG/5 ML SYRINGE IV ONE (18:14)
[2019-10-10] MEDS ORDERED: MIDAZOLAM 2 MG/2 ML VIAL ONE (18:14)
[2019-10-10] MEDS ORDERED: LIDOCAINE 1% INJ 10MG/ML (20 ML MDV) ONE (18:14)
[2019-10-10] MEDS ORDERED: ROCURONIUM BROMIDE 10 MG/ML 10 ML VIAL IV ONE (18:14)
[2019-10-10] MEDS ORDERED: PHENYLEPHRINE-0.9% NACL SYG 1 MG/10 ML SYRINGE ONE (18:14)
[2019-10-10] MEDS ORDERED: GLYCOPYRROLATE 0.2 MG/ML 2 ML VIAL ONE (18:14)
[2019-10-10] MEDS ORDERED: VANCOMYCIN 1,000 MG VIAL ONE (18:14)
[2019-10-10] MEDS ORDERED: fentaNYL (PF) 50 MCG/ML 2 ML AMP ONE (18:14)
[2019-10-10] MEDS ORDERED: NEOSTIGMINE 1 MG/ML 10 ML VIAL ONE (18:14)
[2019-10-10] MEDS ORDERED: LIDOCAINE 1% INJ 10MG/ML (20 ML MDV) SQ ONE (19:21)
[2019-10-10] MEDS ORDERED: ROPIVACAINE 5 MG/ML 30 ML VIAL MISCELLANE ONE (19:21)
[2019-10-10] MEDS ORDERED: HYDROmorphone 1 MG/ML 1 ML SYRINGE IVP ONE ×2 (20:12→20:28)
--- NOTE | 2019-10-10 20:29 | XR ---
EXAMINATION TYPE: XR Hip Limited LT DATE OF EXAM: 10/10/2019 CLINICAL HISTORY: Postoperative evaluation TECHNIQUE: Single portable view of the left hip was submitted. FINDINGS: Noted are changes of intramedullary robert and compression screw placement. Alignment is anato jose. Postsurgical soft tissue changes are evident. IMPRESSION: Satisfactory postoperative alignment
--- NOTE | 2019-10-10 20:48 | P.OP ---
Date of Procedure: 10/10/19 Preoperative Diagnosis: Left intertrochanteric femur fracture Postoperative Diagnosis: Left intertrochanteric femur fracture Procedure(s) Performed: Closed reduction and cephalomedullary nailing of left intertrochanteric femur fracture Implants: Synthes short TFN; 130 by 170 mm with a 95 mm helical blade and one 5.0 mm x 32 mm distal locking screw Anesthesia: ROSANNA, local Surgeon: Isaias Arteaga Estimated Blood Loss (ml): 150 Urine output (ml): 150 Pathology: none sent Condition: stable Disposition: PACU Indications for Procedure: The patient is a pleasant 84-year-old female who sustained a displaced left intertrochanteric femur fracture after a mechanical fall. Surgical treatment was recommended. Risks and benefits were discussed with the patient, including (but not limited to) the risks of infection, bleeding, injury tendons or neurovascular structures, blood clots and possible need for future surgery. She expressed understanding and wished to proceed with surgery. Consent forms were signed. The surgical site was confirmed and marked preoperatively. Description of Procedure: The patient was brought to the operative suite by the anesthesia team and general anesthesia was administered. The patient was then transferred to a fracture table and positioned supine with the operative limb in a well-padded boot. The contralateral limb was flexed, abducted and secured to a padded, well- leg cobb. All bony prominences were padded in the typical fashion. Preoperative antibiotics administered. A time-out was performed, confirming patient identifiers, the operative side, site and the procedure to be performed: all team members expressed agreement. The fracture was manually reduced and confirmed with orthogonal fluoroscopy images. The left lower extremity was then prepped and draped in standard, sterile fashion. A small stab incision was made proximal to the greater trochanter and a guidewire was inserted. Fluoroscopy was used to localize the starting point at the tip of the greater trochanter and the wire was advanced into the proximal femur. Its position was confirmed on orthogonal images. The skin incision was extended to accommodate the entry reamer. This was inserted through a tissue protector and advanced to the level of the lesser trochanter under fluoroscopic guidance. The reamer and guidewire were removed. Based on the patient's anatomy and fracture pattern, an 11 mm short nail was selected. This was attached to the insertion handle and passed down the medullary canal. An incision was made laterally along the proximal thigh for placement of the cephalomedullary lag screw. A drill sleeve was inserted down to the lateral femoral cortex. A guidewire was advanced through the nail and into the femoral head. Position of the wire was confirmed on orthogonal views and adjusted to a satisfactory position. Measuring off the guidewire, a 95 mm screw was selected. A cannulated drill was used and the screw was inserted over the guidewire to the appropriate depth. The set screw was inserted and tightened to lock the blade in place, then was slightly loosened to allow for dynamic compression. Compression was applied through the lag screw insertion cannula - this was visually confirmed on imaging. A small incision was made for the distal screw. The drill sleeve was inserted and advanced to the lateral femoral cortex. The bone was drilled, measured and 5 mm distal cortical screw was inserted. The insertion handle was removed. Final x-rays were taken to confirm fracture reduction and implant position. All wounds were irrigated thoroughly with normal saline. The fascia and subcutaneous tissues were closed in layers with interrupted #1 Vicryl and 2-0 Vicryl sutures. The skin closed with andres. The incision sites were injected with local anaesthetic with epinephrine for adjunctive postoperative pain control and hemostasis. Sterile dressings were applied. All sponge, needle and instrument counts were correct at the end of the procedure. The patient tolerated the procedure well. The patient was transferred to a hospital bed and transported to the PACU in stable condition.
[2019-10-10] MEDS: ATORVASTATIN 20 MG TAB PO SCH (21:10)
[2019-10-11] MEDS: MORPHINE SULFATE 4 MG/ML SYRINGE IV PRN ×3 (03:44→11:43)
[2019-10-11 07:14] LABS: Basophils # (A) 0.2 k/uL (0-0.2); Basophils % (A) 1 %; Eosinophils % (A) 0 %; HCT 34.5 % (34.0-46.0); HGB 11.3 gm/dL (11.4-16.0); Lymphocytes # (A) 1.2 k/uL (1.0-4.8); Lymphocytes % (A) 11 %; MCH 30.2 pg (25.0-35.0); MCHC 32.6 g/dL (31.0-37.0); MCV 92.6 fL (80.0-100.0); Mean Platelet Volume 8.1; Monocytes # (A) 0.7 k/uL (0-1.0); Monocytes % (A) 7 %; Neutrophils # (A) 8.3 k/uL (1.3-7.7); Neutrophils % (A) 79 %; Platelet Count 153 k/uL (150-450); RBC 3.73 m/uL (3.80-5.40); RDW 13.1 % (11.5-15.5); WBC 10.5 k/uL (3.8-10.6)
[2019-10-11] MEDS: TRIAMTERENE-HCTZ 37.5-25MG 1 EACH TAB PO SCH (07:27)
[2019-10-11] MEDS: ENOXAPARIN 40 MG/0.4 ML SYRINGE SQ SCH (07:28)
[2019-10-11] MEDS: amLODIPine 5 MG TAB PO SCH (07:28)
[2019-10-11] MEDS: LOSARTAN 25 MG TAB PO SCH (07:28)
--- NOTE | 2019-10-11 08:17 | FL ---
Fluoroscopy HISTORY: Hip fracture 1.09 minutes fluoroscopy time supplied to the referring clinician. 3 intraoperative C-arm images doc ument the procedure. See dictated report from orthopedic surgery.
--- NOTE | 2019-10-11 08:18 | XR ---
Limited left hip HISTORY: Hip fracture 3 intraoperative C-arm images document the procedure.
[2019-10-11] MEDS: HYDROcodone/APAP 5-325MG 1 EACH TAB PO PRN ×3 (09:24→21:54)
[2019-10-11] MEDS: PHENYTOIN 50 MG CHEWABLE PO SCH (11:31)
[2019-10-11] MEDS: PHENYTOIN SODIUM EXTENDED 100 MG CAP PO SCH ×2 (11:32→20:09)
--- NOTE | 2019-10-11 12:11 | P.PN ---
Subjective Progress Note Date: 10/11/19 The patient states that there is persistent pain in the hip but it has improved. She is moving easier. She was able to get up to the bedside chair. Denies nausea, vomiting, fevers or chills. She denies any specific issues or concerns. Objective - Vital Signs Vital signs: Vital Signs Temp 98.8 F 10/11/19 10:37 Pulse 78 10/11/19 10:37 Resp 16 10/11/19 07:15 BP 122/66 10/11/19 10:37 Pulse Ox 98 10/11/19 10:37 Intake & Output 10/10/19 10/11/19 10/11/19 18:59 06:59 18:59 Intake Total 800 0 350 Output Total 375 750 Balance 425 -750 350 Intake: IV 800 0 Oral 350 Output: Urine 375 600 Estimated Blood Loss 150 Other: Voiding Method Indwelling Catheter Indwelling Catheter Indwelling Catheter - Exam General: Sitting up in bedside chair. Appears comfortable and in no acute distress Musculoskeletal - left hip: The dressing is clean, dry and in place. No shadowing or strike through. Appropriate tenderness to palpation. Appropriate pain with log roll. Intact light touch sensation and gross motor function distally. The calf is soft and nontender. - Labs CBC & Chem 7: 10/11/19 06:41 10/09/19 16:00 Labs: Abnormal Lab Results - Last 24 Hours (Table) 10/11/19 Range/Units 06:41 RBC 3.73 L (3.80-5.40) m/uL Hgb 11.3 L (11.4-16.0) gm/dL Neutrophils # 8.3 H (1.3-7.7) k/uL Assessment and Plan Assessment: This is an 84-year-old female who presents with left hip pain status post fall 1. Postoperative day #1 status post cephalomedullary nailing of left intertrochanteric femur fracture Plan: Intraoperative findings were reviewed with the patient. Begin PT/OT - weightbearing as tolerated with a walker Up with assist only, fall precautions DC Nichols DVT prophylaxis with LMWH Continue PRN pain management DC planning - expect subacute rehab
--- NOTE | 2019-10-11 13:42 | P.PN ---
Subjective Progress Note Date: 10/11/19 Principal diagnosis: Postop day #1 for left hemiarthroplasty The patient is an 84-year-old white female with known history of hypertension and hyperlipidemia with an underlying history of left hip fracture status post repair. The patient is doing quite well. She's been sitting up in a chair fairly comfortably. No significant complaints. Patient is tolerating diet. No sniffing nausea, vomiting or diarrhea is stated. Objective - Vital Signs Vital signs: Vital Signs Temp 98.8 F 10/11/19 10:37 Pulse 78 10/11/19 10:37 Resp 16 10/11/19 07:15 BP 122/66 10/11/19 10:37 Pulse Ox 98 10/11/19 10:37 Intake & Output 10/10/19 10/11/19 10/11/19 18:59 06:59 18:59 Intake Total 800 0 350 Output Total 375 750 Balance 425 -750 350 Intake: IV 800 0 Oral 350 Output: Urine 375 600 Estimated Blood Loss 150 Other: Voiding Method Indwelling Catheter Indwelling Catheter Indwelling Catheter - Constitutional General appearance: Present: average body habitus - EENT Eyes: Absent: abnormal pupil - Neck Neck: Absent: lymphadenopathy - Respiratory Respiratory: bilateral: CTA - Cardiovascular Rhythm: regular Heart sounds: normal: S1, S2 Abnormal Heart Sounds: Absent: S3 Gallop - Gastrointestinal General gastrointestinal: Present: soft. Absent: tenderness - Integumentary Integumentary: Absent: cellulitis - Labs CBC & Chem 7: 10/11/19 06:41 10/09/19 16:00 Labs: Abnormal Lab Results - Last 24 Hours (Table) 10/11/19 Range/Units 06:41 RBC 3.73 L (3.80-5.40) m/uL Hgb 11.3 L (11.4-16.0) gm/dL Neutrophils # 8.3 H (1.3-7.7) k/uL Assessment and Plan (1) Hip fracture, left Current Visit: Yes Status: Acute Code(s): S72.002A - FRACTURE OF UNSP PART OF NECK OF LEFT FEMUR, INIT SNOMED Code(s): 922570445 (2) Hypoxia Current Visit: No Status: Acute Code(s): R09.02 - HYPOXEMIA SNOMED Code(s): 303707108 (3) Weakness Current Visit: No Status: Acute Code(s): R53.1 - WEAKNESS SNOMED Code(s): 34087867 Plan: The patient is doing quite well postop day #1. Appropriate postop protocol with pulmonary toilet. Check CBC and CMP in a.m..
[2019-10-11] MEDS: ATORVASTATIN 20 MG TAB PO SCH (20:09)
[2019-10-12] MEDS: HYDROcodone/APAP 5-325MG 1 EACH TAB PO PRN ×5 (03:20→23:21)
[2019-10-12] MEDS ORDERED: ALENDRONATE SODIUM 70 MG PO SCH (07:00)
[2019-10-12 08:17] LABS: HCT 29.7 % (34.0-46.0); HGB 10.1 gm/dL (11.4-16.0); MCH 31.4 pg (25.0-35.0); MCV 92.3 fL (80.0-100.0); Mean Platelet Volume 7.5; Platelet Count 138 k/uL (150-450); RBC 3.21 m/uL (3.80-5.40); WBC 7.6 k/uL (3.8-10.6)
[2019-10-12 08:44] LABS: ALT 23 U/L (9-52); AST 22 U/L (14-36); African American GFR (CKD) >90 (>60 ml/min/1.73 sqM); Albumin 2.9 g/dL (3.5-5.0); Alkaline Phosphatase 86 U/L (38-126); Anion Gap 5 mmol/L; Blood Urea Nitrogen 12 mg/dL (7-17); Calcium 8.7 mg/dL (8.4-10.2); Carbon Dioxide 32 mmol/L (22-30); Chloride 99 mmol/L (98-107); Glucose 106 mg/dL (74-99); Non-African American GFR(CKD) 86 (>60 ml/min/1.73 sqM); Potassium 3.9 mmol/L (3.5-5.1); Sodium 136 mmol/L (137-145); Total Bilirubin 0.4 mg/dL (0.2-1.3); Total Protein 5.6 g/dL (6.3-8.2)
[2019-10-12] MEDS: ACETAMINOPHEN TAB 325 MG TAB PO PRN ×2 (09:15→18:32)
[2019-10-12] MEDS: amLODIPine 5 MG TAB PO SCH (09:19)
[2019-10-12] MEDS: LOSARTAN 25 MG TAB PO SCH (09:19)
[2019-10-12] MEDS: TRIAMTERENE-HCTZ 37.5-25MG 1 EACH TAB PO SCH (09:21)
[2019-10-12] MEDS: ENOXAPARIN 40 MG/0.4 ML SYRINGE SQ SCH (09:22)
--- NOTE | 2019-10-12 12:07 | P.PN ---
Subjective Progress Note Date: 10/12/19 She states that the pain in the hip has decreased somewhat. She has also noticed some pain around her lower ribs which she feels is the result of the fall. She denies actual chest pain. She found it difficult working with therapy but she was able to get up to the chair. Objective - Vital Signs Vital signs: Vital Signs Temp 98.5 F 10/12/19 11:22 Pulse 72 10/12/19 11:22 Resp 16 10/12/19 11:22 BP 113/69 10/12/19 11:22 Pulse Ox 95 10/12/19 11:22 Intake & Output 10/11/19 10/12/19 10/12/19 18:59 06:59 18:59 Intake Total 670 Output Total 375 2350 400 Balance 295 -2350 -400 Intake: Oral 670 Output: Urine 375 2350 400 Uretheral (Nichols) 1200 Other: Voiding Method Indwelling Catheter Indwelling Catheter Indwelling Catheter - Exam General: Lying reclined in bed. Appears comfortable and in no acute distress Musculoskeletal - left hip: The dressing is clean and in place. No bloody strikethrough. She tolerates passive hip flexion and circumduction to approximately 40. The particulate smoothly without crepitus or grinding Intact light touch sensation and gross motor function distally. The calf is soft and nontender. - Labs CBC & Chem 7: 10/12/19 07:20 10/12/19 07:20 Labs: Abnormal Lab Results - Last 24 Hours (Table) 10/12/19 10/12/19 Range/Units 07:20 07:20 RBC 3.21 L (3.80-5.40) m/uL Hgb 10.1 L (11.4-16.0) gm/dL Hct 29.7 L (34.0-46.0) % Plt Count 138 L (150-450) k/uL Sodium 136 L (137-145) mmol/L Carbon Dioxide 32 H (22-30) mmol/L Glucose 106 H (74-99) mg/dL Total Protein 5.6 L (6.3-8.2) g/dL Albumin 2.9 L (3.5-5.0) g/dL Assessment and Plan Assessment: This is an 84-year-old female who presents with left hip pain status post fall 1. Postoperative day #2 status post cephalomedullary nailing of left intertrochanteric femur fracture Plan: Continue PT/OT - weightbearing as tolerated with a walker Up with assist only, fall precautions DVT prophylaxis with LMWH Continue PRN pain management Ok to DC to subacute rehab once placement arrangements are finalized.
[2019-10-12] MEDS: PHENYTOIN 50 MG CHEWABLE PO SCH (13:22)
[2019-10-12] MEDS: PHENYTOIN SODIUM EXTENDED 100 MG CAP PO SCH ×2 (13:22→19:52)
--- NOTE | 2019-10-12 16:01 | P.DS ---
Providers Date of admission: 10/09/19 16:00 Expected date of discharge: 10/12/19 Attending physician: Isaias Arteaga DO Consults: 10/09/19 15:49 Consult Physician Urgent Consulting Provider: Jhonny Anderson Consult Reason/Comments: medical care Do you want consulting provider notified?: Yes Primary care physician: Jhonny Anderson - Discharge Diagnosis(es) (1) Status post hip surgery Current Visit: Yes Status: Acute (2) Closed intertrochanteric fracture of left hip Current Visit: Yes Status: Acute Hospital Course: This is an 84-year-old female that presented to the emergency department after sustaining a fall. She was found to have an intertrochanteric fracture of the left hip. After discussion and consideration the patient and family elected to proceed with a left hip cephalomedullary nailing. The patient was seen preoperatively by internal medicine and cleared for surgery. The patient underwent a cephalomedullary nailing of the left hip on 10/10/2019. The procedure was performed without complication or sequelae. The patient is doing well postoperatively. Labs and vital signs are stable the day of discharge. On the day of discharge the patient's hip incision is healing well. There is minimal erythema. There is no drainage noted at this time. There is minimal soft tissue swelling to the hip and thigh. The patient has full foot and ankle motion without difficulty or pain. Neurovascular status to the left lower extremity is intact. The patient will be discharged to skilled rehab in stable condition. See medication reconciliation for accurate list of discharge medications. Pertinent Studies: Laboratory Tests 10/12/19 07:20 WBC 7.6 RBC 3.21 L Hgb 10.1 L Hct 29.7 L Plt Count 138 L Patient Condition at Discharge: Stable Plan - Discharge Summary Discharge Rx Participant: Yes New Discharge Prescriptions: New Docusate [Colace] 100 mg PO BID #60 capsule Enoxaparin [Lovenox] 40 mg SQ DAILY #14 syringe Aspirin 325 mg PO BID #60 tab No Action Alendronate Sodium 70 mg PO WE Aspirin EC [Ecotrin Low Dose] 81 mg PO DAILY@1200 Multivitamins, Thera [Multivitamin (formulary)] 1 tab PO DAILY@1200 Phenytoin Sodium Extended [Dilantin] 200 mg PO HS Phenytoin Sodium Extended [Dilantin] 100 mg PO DAILY@1200 Ascorbic Acid [Vitamin C] 500 mg PO HS Phenytoin [Dilantin Chew] 50 mg PO Q48H Phenytoin [Dilantin Chew] 25 mg PO Q48H amLODIPine [Norvasc] 5 mg PO QAM Nitroglycerin Sl Tabs [Nitrostat] 0.4 mg SUBLINGUAL Q5M PRN #50 tab PRN Reason: Chest Pain Acetaminophen Tab [Tylenol Tab] 325 mg PO Q6H PRN PRN Reason: Pain Triamterene/Hydrochlorothiazid [Triamterene-Hctz 37.5-25 mg Tb] 1 tab PO DAILY Losartan Potassium [Cozaar] 12.5 mg PO QAM Ergocalciferol [Vitamin D2] 50,000 unit PO Q14D Atorvastatin [Lipitor] 20 mg PO HS Discharge Medication List Alendronate Sodium 70 mg PO WE 06/10/15 [History] Aspirin EC [Ecotrin Low Dose] 81 mg PO DAILY@1200 06/10/15 [History] Multivitamins, Thera [Multivitamin (formulary)] 1 tab PO DAILY@1200 06/10/15 [History] Ascorbic Acid [Vitamin C] 500 mg PO HS 06/11/15 [History] Phenytoin Sodium Extended [Dilantin] 100 mg PO DAILY@1200 06/11/15 [History] Phenytoin Sodium Extended [Dilantin] 200 mg PO HS 06/11/15 [History] Phenytoin [Dilantin Chew] 25 mg PO Q48H 03/30/19 [History] Phenytoin [Dilantin Chew] 50 mg PO Q48H 03/30/19 [History] amLODIPine [Norvasc] 5 mg PO QAM 04/09/19 [History] Nitroglycerin Sl Tabs [Nitrostat] 0.4 mg SUBLINGUAL Q5M PRN #50 tab 04/15/19 [Rx] Acetaminophen Tab [Tylenol Tab] 325 mg PO Q6H PRN 10/04/19 [History] Atorvastatin [Lipitor] 20 mg PO HS 10/04/19 [History] Ergocalciferol [Vitamin D2] 50,000 unit PO Q14D 10/04/19 [History] Losartan Potassium [Cozaar] 12.5 mg PO QAM 10/04/19 [History] Triamterene/Hydrochlorothiazid [Triamterene-Hctz 37.5-25 mg Tb] 1 tab PO DAILY 10/04/19 [History] Aspirin 325 mg PO BID #60 tab 10/12/19 [Rx] Docusate [Colace] 100 mg PO BID #60 capsule 10/12/19 [Rx] Enoxaparin [Lovenox] 40 mg SQ DAILY #14 syringe 10/12/19 [Rx] Follow up Appointment(s)/Referral(s): Jhonny Anderson MD [Primary Care Provider] - 1-2 days [facility], [NON-STAFF] - As Needed Isaias Arteaga DO [Medical Doctor] - 2 Weeks Activity/Diet/Wound Care/Special Instructions: Keep Optifoam dressing in place for 10 days unless saturated. Remove on day 10 and apply dry 4x4s and paper tape. Keep andres in place until follow up appointment. Lovenox 40 mg daily for 14 days then start Aspirin 325mg BID for 4 weeks. Weightbearing as tolerated with a walker and assistance Follow up in [address] Arteaga for follow up with staple removal. Call [facility] with any questions or concerns, . Discharge Disposition: TRANSFER TO SNF/ECF
[2019-10-12] MEDS: ATORVASTATIN 20 MG TAB PO SCH (19:52)
[2019-10-13] MEDS: HYDROcodone/APAP 5-325MG 1 EACH TAB PO PRN ×3 (05:00→14:31)
[2019-10-13 07:30] LABS: Basophils % (A) 1 %; Eosinophils # (A) 0.2 k/uL (0-0.7); Eosinophils % (A) 3 %; HCT 27.8 % (34.0-46.0); HGB 9.3 gm/dL (11.4-16.0); Lymphocytes % (A) 14 %; MCH 30.7 pg (25.0-35.0); MCHC 33.3 g/dL (31.0-37.0); MCV 92.2 fL (80.0-100.0); Mean Platelet Volume 8.2; Monocytes # (A) 0.5 k/uL (0-1.0); Monocytes % (A) 8 %; Neutrophils # (A) 5.2 k/uL (1.3-7.7); Neutrophils % (A) 73 %; Platelet Count 145 k/uL (150-450); RBC 3.02 m/uL (3.80-5.40); RDW 13.1 % (11.5-15.5); WBC 7.1 k/uL (3.8-10.6)
[2019-10-13 08:52] VITALS: BP 109/62; PULSE 76; RESP 17; TEMP 98
[2019-10-13] MEDS: amLODIPine 5 MG TAB PO SCH (10:19)
[2019-10-13] MEDS: LOSARTAN 25 MG TAB PO SCH (10:19)
[2019-10-13] MEDS: ENOXAPARIN 40 MG/0.4 ML SYRINGE SQ SCH (10:20)
[2019-10-13] MEDS: TRIAMTERENE-HCTZ 37.5-25MG 1 EACH TAB PO SCH (10:20)
[2019-10-13] MEDS: PHENYTOIN 50 MG CHEWABLE PO SCH (12:58)
[2019-10-13] MEDS: PHENYTOIN SODIUM EXTENDED 100 MG CAP PO SCH (12:59)
== END 2019-10-13 15:25 | DRG 482 ==
LOC: EC 14:09 → 4SSUR 16:00 → 4MS4W 16:04 → 4SSUR 16:06
PROVIDERS: ADMIT Orthopaedic Surgery; ATTEND Orthopaedic Surgery
PROC: 0QS736Z Reposition Left Upper Femur with Intramedullary Internal Fixation Device, Percutaneous Approach (ICD-10-PCS; principal; 2019-10-10 16:30)
DX: S72.142A Displaced intertrochanteric fracture of left femur, initial encounter for closed fracture (principal); E78.5 Hyperlipidemia, unspecified; G40.909 Epilepsy, unspecified, not intractable, without status epilepticus; I10 Essential (primary) hypertension; I25.10 Atherosclerotic heart disease of native coronary artery without angina pectoris; I25.2 Old myocardial infarction; M17.0 Bilateral primary osteoarthritis of knee; M21.70 Unequal limb length (acquired), unspecified site; R09.02 Hypoxemia; W01.0XXA Fall on same level from slipping, tripping and stumbling without subsequent striking against object, initial encounter; Y92.22 Religious institution as the place of occurrence of the external cause; Z79.82 Long term (current) use of aspirin; Z79.899 Other long term (current) drug therapy; Z82.5 Family history of asthma and other chronic lower respiratory diseases; Z88.1 Allergy status to other antibiotic agents; Z90.710 Acquired absence of both cervix and uterus; Z90.721 Acquired absence of ovaries, unilateral; Z98.42 Cataract extraction status, left eye; Z98.41 Cataract extraction status, right eye; Z86.010 Personal history of colon polyps; Z86.79 Personal history of other diseases of the circulatory system; Z90.49 Acquired absence of other specified parts of digestive tract
CPT/HCPCS: 71045; 73501; 73502; 80053; 80185; 85025; 85027; 85610; 85730; 86850; 86900; 86901; 96374; 99285

== ENCOUNTER 2020-05-20 09:11 | Observation (INO) | payer MEDICARE ==
[2020-05-20] MEDS ORDERED: SODIUM CHLORIDE 0.9% 1,000 ML IV STA ×2 (09:35)
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
[2020-05-20 10:09] LABS: ALT 19 U/L (4-34); AST 38 U/L (14-36); African American GFR (CKD) >90 (>60 ml/min/1.73 sqM); Alkaline Phosphatase 139 U/L (38-126); Anion Gap 9 mmol/L; Blood Urea Nitrogen 14 mg/dL (7-17); Calcium 9.4 mg/dL (8.4-10.2); Carbon Dioxide 27 mmol/L (22-30); Chloride 100 mmol/L (98-107); Glucose 107 mg/dL (74-99); Magnesium 2.1 mg/dL (1.6-2.3); Non-African American GFR(CKD) 86 (>60 ml/min/1.73 sqM); Potassium 4.1 mmol/L (3.5-5.1); Sodium 136 mmol/L (137-145); Total Bilirubin 0.2 mg/dL (0.2-1.3); Total Protein 6.8 g/dL (6.3-8.2)
--- NOTE | 2020-05-20 10:16 | XR ---
EXAMINATION TYPE: XR chest 2V DATE OF EXAM: 05/20/2020 HISTORY: difficulty breathing. REFERENCE: Previous study dated 10/09/2019. FINDINGS: There is a moderate S-shaped scoliosis convex to the right in the thoracic region and to th e left in the lumbar region. There are multiple, healed, right-sided rib fractures. Heart size upper limits of normal. There is minimal atelectasis at the left lung base. Pleural spaces are clear. IMPRESSION: MILD ATELECTASIS, LEFT LUNG BASE.
[2020-05-20 10:19] LABS: Basophils % (A) 1 %; Eosinophils # (A) 0.1 k/uL (0-0.7); Eosinophils % (A) 2 %; HCT 39.8 % (34.0-46.0); HGB 13.3 gm/dL (11.4-16.0); Lymphocytes # (A) 1.7 k/uL (1.0-4.8); Lymphocytes % (A) 32 %; MCHC 33.5 g/dL (31.0-37.0); MCV 92.6 fL (80.0-100.0); Mean Platelet Volume 9.8; Monocytes # (A) 0.3 k/uL (0-1.0); Monocytes % (A) 6 %; Neutrophils # (A) 3.1 k/uL (1.3-7.7); Neutrophils % (A) 58 %; Platelet Count 162 k/uL (150-450); WBC 5.3 k/uL (3.8-10.6)
[2020-05-20] MEDS ORDERED: NITROGLYCERIN SL TABS 0.4 MG TAB SUBLINGUAL PRN ×2 (10:56→17:30)
[2020-05-20] MEDS ORDERED: ASPIRIN 81 MG PO STA (10:56)
[2020-05-20] MEDS ORDERED: PHENYTOIN SODIUM EXTENDED 100 MG CAP PO SCH (12:00)
[2020-05-20 12:09] LABS: Appearance,Urine Clear (Clear); Bacteria,Urine Rare /hpf; Bilirubin,Urine Negative (Negative); Blood,Urine Negative (Negative); Color,Urine Light Yellow; Glucose,Urine (UA) Negative (Negative); Ketones,Urine Negative (Negative); Leukocyte Esterase,Urine Small (Negative); Nitrite,Urine Negative (Negative); PH, Urine 7.5 (5.0-8.0); Protein,Urine Negative (Negative); RBC,Urine 1 /hpf (0-5); Specific Gravity,Urine 1.007 (1.001-1.035); Squamous Epithelial Cell,Urine <1 /hpf (0-4); Urobilinogen,Urine <2.0 mg/dL (<2.0); WBC,Urine 1 /hpf (0-5)
[2020-05-20] MEDS ORDERED: HEPARIN SODIUM,PORCINE 5,000 UNIT/ML 1 ML VIAL IV PRN (13:23)
[2020-05-20] MEDS ORDERED: HEPARIN SODIUM,PORCINE 5,000 UNIT/ML 1 ML VIAL IV ONE (13:23)
[2020-05-20] MEDS: NITROGLYCERIN OINT 1 INCH/GM PACKET TOPICAL SCH ×2 (14:16→23:03)
[2020-05-20] MEDS: HEPARIN SOD,PORK IN 0.45% NACL 25,000 UNIT in 0.45% NACL 1 250ML.BAG IV SCH (14:20)
[2020-05-20] MEDS ORDERED: ACETAMINOPHEN TAB 325 MG TAB PO PRN (17:30)
[2020-05-20] MEDS ORDERED: PHENYTOIN 50 MG CHEWABLE PO SCH (17:30)
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
[2020-05-20] MEDS: PHENYTOIN SODIUM EXTENDED 100 MG CAP PO SCH (20:00)
[2020-05-20] MEDS: FAMOTIDINE 20 MG/2 ML VIAL IV SCH (20:00)
[2020-05-20] MEDS: ASCORBIC ACID 500 MG TAB PO SCH (20:00)
[2020-05-20] MEDS: ATORVASTATIN 20 MG TAB PO SCH (20:00)
[2020-05-20] MEDS ORDERED: HEPARIN SODIUM,PORCINE 5,000 UNIT/ML 1 ML VIAL SQ SCH (21:00)
--- NOTE | 2020-05-21 01:16 | CONS ---
CONSULTATION CHIEF COMPLAINT: Chest pain. Deloris is an 84-year-old lady with history of hypertension, dyslipidemia, who presented to hospital complaining of fatigue, tiredness, shortness of breath and precordial chest pain. She describes it as a precordial chest pressure, mild to moderate intensity at rest that radiated to her back. It was associated with shortness of breath, but there was no diaphoresis. The patient sees Dr. Farris in our office for her cardiac needs. She appears comfortable at the time of my evaluation. EKG shows sinus rhythm with nonspecific ST-T wave changes in the inferolateral leads. She had 2 sets of troponins that are negative. Creatinine is normal. Hemoglobin is normal. PAST MEDICAL HISTORY: Significant for hypertension and dyslipidemia. CURRENT MEDICATIONS: Current medications include Norvasc 5 q. daily, hydrochlorothiazide, Dilantin, sublingual nitroglycerin, Cozaar, Lipitor, aspirin. ALLERGIES: She has multiple drug allergies, I have reviewed them. FAMILY HISTORY: Negative for premature coronary artery disease. SOCIAL HISTORY: Negative for smoking, EtOH abuse, or drug abuse. REVIEW OF SYSTEMS: HEENT is unremarkable. CARDIAC: As described above. RESPIRATORY: As described above. GI: Negative. GENITOURINARY: Negative. ALLERGY/IMMUNOLOGY: Negative. SKIN: Negative. MUSCULOSKELETAL: Significant for arthritis. PSYCHOSOCIAL: Negative. ENDOCRINE: Negative. HEMATOLOGICAL: Negative. DERM: Negative. CONSTITUTIONAL: Negative. ONCOLOGICAL: Negative. PHYSICAL EXAMINATION: On exam, heart rate is 54 beats per minute. Blood pressure is 123/62. Respiratory rate is 18, O2 saturation is 97% on room air. There is no jugular venous distention. Carotid upstroke is normal. There is no bruit. Chest exam reveals good air entry bilaterally. Heart exam reveals first and second heart sounds and a systolic murmur at the left lower sternal border. Abdomen is soft. Exam of extremities did not reveal any edema. Peripheral pulses are felt. LABS: Labs show a hemoglobin of 13.3, potassium is 4.1 creatinine is 0.5. Tropes are negative. EKG is abnormal. ASSESSMENT: 1. Unstable angina. 2. Hypertension. 3. Dyslipidemia. PLAN: I will start the patient on IV heparin. Resume the Lipitor that she is on along with nitro paste 1 inch t.i.d. I advised the patient to undergo cardiac catheterization. We will schedule this tomorrow. MMCINDAL / IJN: [id number] /
[2020-05-21 06:54] LABS: Basophils % (A) 1 %; Eosinophils # (A) 0.2 k/uL (0-0.7); Eosinophils % (A) 4 %; HCT 39.3 % (34.0-46.0); HGB 12.8 gm/dL (11.4-16.0); Lymphocytes # (A) 1.6 k/uL (1.0-4.8); Lymphocytes % (A) 36 %; MCH 30.9 pg (25.0-35.0); MCHC 32.7 g/dL (31.0-37.0); MCV 94.6 fL (80.0-100.0); Mean Platelet Volume 9.8; Monocytes # (A) 0.3 k/uL (0-1.0); Monocytes % (A) 7 %; Neutrophils # (A) 2.3 k/uL (1.3-7.7); Neutrophils % (A) 50 %; Platelet Count 148 k/uL (150-450); RBC 4.15 m/uL (3.80-5.40); WBC 4.5 k/uL (3.8-10.6)
[2020-05-21 07:25] LABS: Cholesterol 96 mg/dL (<200); HDL Cholesterol 59 mg/dL (40-60); LDL Cholesterol,Calculated 28 mg/dL (0-99); Triglycerides 44 mg/dL (<150)
--- NOTE | 2020-05-21 07:54 | P.PN ---
Subjective Progress Note Date: 05/21/20 Principal diagnosis: Unstable angina The patient is an 84-year-old white female with no chest pain but had significant dyspnea and weakness. Rule out myocardial infraction is noted. Appreciate multiple consultants input. She is walking without difficulty or dizziness. No voiding difficulties. Objective - Vital Signs Vital signs: Vital Signs Temp 97.7 F 05/21/20 04:00 Pulse 56 L 05/21/20 04:00 Resp 16 05/21/20 04:00 BP 136/67 05/21/20 04:00 Pulse Ox 97 05/21/20 04:00 Intake & Output 05/20/20 05/21/20 05/21/20 18:59 06:59 18:59 Weight 68.039 kg 66.7 kg Other: # Voids 2 - Constitutional General appearance: Present: average body habitus - EENT Eyes: Absent: abnormal pupil - Neck Neck: Absent: lymphadenopathy - Respiratory Respiratory: bilateral: CTA - Cardiovascular Rhythm: regular Heart sounds: normal: S1, S2 Abnormal Heart Sounds: Absent: S3 Gallop - Gastrointestinal General gastrointestinal: Present: soft. Absent: tenderness - Integumentary Integumentary: Absent: cellulitis - Psychiatric Psychiatric: Present: A&O x's 3 - Labs CBC & Chem 7: 05/21/20 05:23 05/20/20 09:44 Labs: Abnormal Lab Results - Last 24 Hours (Table) 05/20/20 05/20/20 05/20/20 Range/Units 09:44 11:06 19:15 Plt Count (150-450) k/uL APTT 50.3 H (22.0-30.0) sec Sodium 136 L (137-145) mmol/L Glucose 107 H (74-99) mg/dL AST 38 H (14-36) U/L Alkaline Phosphatase 139 H (38-126) U/L Ur Leukocyte Esterase Small H (Negative) Urine Bacteria Rare H (None) /hpf 05/21/20 05/21/20 Range/Units 05:23 05:23 Plt Count 148 L (150-450) k/uL APTT 50.1 H (22.0-30.0) sec Sodium (137-145) mmol/L Glucose (74-99) mg/dL AST (14-36) U/L Alkaline Phosphatase (38-126) U/L Ur Leukocyte Esterase (Negative) Urine Bacteria (None) /hpf Assessment and Plan (1) Chest pain Current Visit: Yes Status: Acute Code(s): R07.9 - CHEST PAIN, UNSPECIFIED SNOMED Code(s): 17701258 (2) Weakness Current Visit: Yes Status: Acute Code(s): R53.1 - WEAKNESS SNOMED Code(s): 93769478 (3) Dyspnea Current Visit: No Status: Acute Code(s): R06.00 - DYSPNEA, UNSPECIFIED SNOMED Code(s): 719773549 Plan: Await cardiac testing area We will continue to follow. See orders otherwise. Appreciate cardiology input. Time with Patient: Less than 30
[2020-05-21] MEDS ORDERED: NITROGLYCERIN SL TABS 0.4 MG TAB SUBLINGUAL PRN (07:56)
[2020-05-21] MEDS ORDERED: ATORVASTATIN 80 MG TAB PO STA (07:56)
[2020-05-21] MEDS ORDERED: ALPRAZolam 0.5 MG TAB PO PRN (07:56)
[2020-05-21] MEDS ORDERED: ASPIRIN 325 MG TAB PO STA (07:56)
[2020-05-21] MEDS ORDERED: ALPRAZolam 0.25 MG TAB PO PRN (07:56)
[2020-05-21] MEDS: ASPIRIN 325 MG TAB PO SCH (08:03)
[2020-05-21] MEDS: ATORVASTATIN 20 MG TAB PO SCH ×2 (08:03→20:04)
[2020-05-21] MEDS ORDERED: ERGOCALCIFEROL 50,000 UNIT CAP PO SCH (09:00)
[2020-05-21] MEDS: TRIAMTERENE-HCTZ 37.5-25MG 1 EACH TAB PO SCH (09:13)
[2020-05-21] MEDS: FAMOTIDINE 20 MG/2 ML VIAL IV SCH (09:13)
[2020-05-21] MEDS: amLODIPine 5 MG TAB PO SCH (09:13)
[2020-05-21] MEDS: MULTIVITAMINS, THERA 1 EACH TAB PO SCH (09:13)
[2020-05-21] MEDS: LOSARTAN 25 MG TAB PO SCH (09:13)
[2020-05-21] MEDS: SODIUM CHLORIDE 0.9% 1,000 ML in EMPTY BAG 1 BAG IV ONE ×2 (09:14→20:02)
[2020-05-21] MEDS: NITROGLYCERIN OINT 1 INCH/GM PACKET TOPICAL SCH ×3 (09:14→22:50)
[2020-05-21] MEDS: PHENYTOIN 50 MG CHEWABLE PO SCH (11:07)
[2020-05-21] MEDS: PHENYTOIN SODIUM EXTENDED 100 MG CAP PO SCH ×2 (11:07→20:03)
[2020-05-21] MEDS: HEPARIN SOD,PORK IN 0.45% NACL 25,000 UNIT in 0.45% NACL 1 250ML.BAG IV SCH (11:08)
--- NOTE | 2020-05-21 11:33 | ECHOF ---
Referral Reason:Irregular heart rythm MEASUREMENTS -------- HEIGHT: 157.5 cm WEIGHT: 66.7 kg BP: 136/67 IVSd: 1.3 cm (0.6 - 1.1) LVIDd: 3.2 cm (3.9 - 5.3) LVPWd: 1.7 cm (0.6 - 1.1) IVSs: 2.1 cm LVIDs: 2.0 cm LVPWs: 1.9 cm LAESV Index (A-L): 27.82 ml/m Ao Diam: 3.0 cm (2.0 - 3.7) AV Cusp: 2.1 cm (1.5 - 2.6) LA Diam: 4.0 cm (2.7 - 3.8) MV EXCURSION: 16.659 mm (> 18.000) MV EF SLOPE: 187 mm/s (70 - 150) EPSS: 0.6 cm MV E Sukumar: 0.50 m/s MV DecT: 435 ms MV A Sukumar: 0.65 m/s MV E/A Ratio: 0.76 RAP: 5.00 mmHg RVSP: 43.86 mmHg FINDINGS -------- Sinus rhythm with extra systolic beats. This was a technically adequate study. The left ventricular size is normal. There is mild concentric left ventricular hypertrophy. Overa ll left ventricular systolic function is mildly impaired with, an EF between 45 - 50 %. Normal LAP Grade 1 Diastolic Dysfunction. The right ventricle is normal in size. The left atrial size is normal. Normal LA size by volume 22+/-6 ml/m2. The right atrial size is normal. The aortic valve is trileaflet and appears structurally normal. The mitral valve is normal. Mild mitral regurgitation is present. The tricuspid valve appears structurally normal. Mild tricuspid regurgitation present. There is m ild pulmonary hypertension. The right ventricular systolic pressure, as measured by Doppler, is 43. 86mmHg. There is no pulmonic regurgitation present. The aortic root size is normal. Normal inferior vena cava with normal inspiratory collapse consistent with estimated right atrial pre ssure of 5 mmHg. CONCLUSIONS -------- 1. Sinus rhythm with extra systolic beats. 2. This was a technically adequate study. 3. The left ventricular size is normal. 4. There is mild concentric left ventricular hypertrophy. 5. Overall left ventricular systolic function is mildly impaired with, an EF between 45 - 50 %. 6. Normal LAP Grade 1 Diastolic Dysfunction. 7. The right ventricle is normal in size. 8. The left atrial size is normal. 9. Normal LA size by volume 22+/-6 ml/m2. 10. The right atrial size is normal. 11. The aortic valve is trileaflet and appears structurally normal. 12. The mitral valve is normal. 13. Mild mitral regurgitation is present. 14. The tricuspid valve appears structurally normal. 15. Mild tricuspid regurgitation present. 16. There is mild pulmonary hypertension. 17. The right ventricular systolic pressure, as measured by Doppler, is 43.86mmHg. 18. There is no pulmonic regurgitation present. 19. The aortic root size is normal. 20. Normal inferior vena cava with normal inspiratory collapse consistent with estimated right atrial pressure of 5 mmHg. CHAIRMAN & CHIEF EXECUTIVE OFFICER: Leslie Torre RDCS
--- NOTE | 2020-05-21 13:26 | P.PN ---
Subjective Progress Note Date: 05/21/20 This is an 84-year-old female with history of hypertension, hyperlipidemia, who presented to the hospital with symptoms of fatigue, tiredness, shortness of breath and chest discomfort. She follows with Dr. Farris in the office. Patient was seen in consultation by Dr. Villasenor and advised to undergo cardiac catheterization. This was initially scheduled for today, however because of the dizziness of the schedule, it has been rescheduled for tomorrow. The patient was seen and examined, she denies any chest discomfort and her breathing is stable. She did have an echocardiogram with Doppler study performed which revealed an ejection fraction of 45-50%. Troponins 0.012, 0.012, 0.013. Objective - Vital Signs Vital signs: Vital Signs Temp 97.9 F 05/21/20 11:13 Pulse 53 L 05/21/20 11:13 Resp 18 05/21/20 11:13 BP 147/94 05/21/20 11:13 Pulse Ox 98 05/21/20 11:13 Intake & Output 05/20/20 05/21/20 05/21/20 18:59 06:59 18:59 Weight 68.039 kg 66.7 kg Other: # Voids 2 1 - Exam PHYSICAL EXAMINATION: GENERAL: 84-year-old female in no acute distress at the time of my examination HEENT: Head is atraumatic, normocephalic. Pupils equal, round. Sclera anicteric. Conjunctiva are clear. Mucous membranes of the mouth are moist. Neck is supple. There is no elevated jugular venous pressure. No carotid bruit is heard. HEART EXAMINATION: Heart S1 S2 1 systolic murmur was heard CHEST EXAMINATION: Lungs are clear to auscultation and precussion. No chest wall tenderness is noted on palpation or with deep breathing. ABDOMEN: Soft, nontender. Bowel sounds are heard. No organomegaly noted. EXTREMITIES: 2+ peripheral pulses with no evidence of peripheral edema and no calf tenderness noted. NEUROLOGIC [patient is awake, alert and oriented 3 . - Labs CBC & Chem 7: 05/21/20 05:23 05/20/20 09:44 Labs: Abnormal Lab Results - Last 24 Hours (Table) 05/20/20 05/21/20 05/21/20 Range/Units 19:15 05:23 05:23 Plt Count 148 L (150-450) k/uL APTT 50.3 H 50.1 H (22.0-30.0) sec Assessment and Plan Plan: Assessment and plan #1 unstable angina #2 hypertension #3 hyperlipidemia Plan Patient is scheduled for cardiac catheterization tomorrow, the risks and benefits were explained to the patient in detail. Further recommendations will be based on those findings and the patient's overall clinical course. DNP note has been reviewed, I agree with a documented findings and plan of care. Patient was seen and examined.
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
[2020-05-21] MEDS: FAMOTIDINE 20 MG TAB PO SCH (20:03)
[2020-05-21] MEDS: ASCORBIC ACID 500 MG TAB PO SCH (20:03)
[2020-05-22] MEDS: amLODIPine 5 MG TAB PO SCH (06:22)
[2020-05-22] MEDS: LOSARTAN 25 MG TAB PO SCH (06:22)
[2020-05-22] MEDS: NITROGLYCERIN OINT 1 INCH/GM PACKET TOPICAL SCH ×2 (06:22→18:36)
[2020-05-22] MEDS: ASPIRIN 325 MG TAB PO SCH (06:23)
[2020-05-22] MEDS: FAMOTIDINE 20 MG TAB PO SCH (06:23)
[2020-05-22] MEDS: TRIAMTERENE-HCTZ 37.5-25MG 1 EACH TAB PO SCH (06:24)
--- NOTE | 2020-05-22 08:40 | P.PN ---
Subjective Principal diagnosis: Unstable angina The patient is an 84-year-old white female with no chest pain but had significant dyspnea and weakness. Rule out myocardial infraction is noted. Appreciate multiple consultants input. She is walking without difficulty or dizziness. No voiding difficulties. Objective - Vital Signs Vital signs: Vital Signs Temp 97.5 F L 05/22/20 07:39 Pulse 50 L 05/22/20 07:39 Resp 18 05/22/20 07:39 BP 133/56 05/22/20 07:39 Pulse Ox 98 05/22/20 07:39 Intake & Output 05/21/20 05/22/20 05/22/20 18:59 06:59 18:59 Intake Total 430 Output Total 650 Balance -220 Weight 69 kg Intake: Oral 430 Output: Urine 650 Other: Voiding Method Toilet # Voids 2 1 2 - Constitutional General appearance: Present: average body habitus - EENT Eyes: Absent: abnormal pupil - Neck Neck: Absent: lymphadenopathy - Respiratory Respiratory: bilateral: CTA - Cardiovascular Rhythm: regular Heart sounds: normal: S1, S2 Abnormal Heart Sounds: Absent: S3 Gallop - Gastrointestinal General gastrointestinal: Present: soft. Absent: tenderness - Neurologic Neurologic: Present: CNII-XII intact - Labs CBC & Chem 7: 05/21/20 05:23 05/20/20 09:44 Assessment and Plan (1) Chest pain Current Visit: Yes Status: Acute Code(s): R07.9 - CHEST PAIN, UNSPECIFIED SNOMED Code(s): 80103134 (2) Weakness Current Visit: Yes Status: Acute Code(s): R53.1 - WEAKNESS SNOMED Code(s): 92014235 (3) Dyspnea Current Visit: No Status: Acute Code(s): R06.00 - DYSPNEA, UNSPECIFIED SNOMED Code(s): 140301811 Plan: Await cardiac catheterization today. Hopefully we can discharge in next 24 hours if stable..
[2020-05-22 09:03] LABS: Basophils % (A) 1 %; Eosinophils # (A) 0.2 k/uL (0-0.7); Eosinophils % (A) 4 %; HCT 39.9 % (34.0-46.0); HGB 12.9 gm/dL (11.4-16.0); Lymphocytes # (A) 1.5 k/uL (1.0-4.8); Lymphocytes % (A) 33 %; MCH 30.1 pg (25.0-35.0); MCHC 32.3 g/dL (31.0-37.0); MCV 93.4 fL (80.0-100.0); Mean Platelet Volume 9.6; Monocytes # (A) 0.3 k/uL (0-1.0); Monocytes % (A) 7 %; Neutrophils # (A) 2.4 k/uL (1.3-7.7); Neutrophils % (A) 54 %; Platelet Count 147 k/uL (150-450); RBC 4.27 m/uL (3.80-5.40); RDW 13.1 % (11.5-15.5); WBC 4.5 k/uL (3.8-10.6)
[2020-05-22] MEDS ORDERED: fentaNYL (PF) 50 MCG/ML 2 ML AMP ONE (12:03)
[2020-05-22] MEDS ORDERED: LIDOCAINE 1% INJ 10MG/ML (20 ML MDV) ONE (12:03)
[2020-05-22] MEDS ORDERED: IV FLUID CONTINUATION 1,000 ML IV ONE (12:13)
[2020-05-22] MEDS ORDERED: fentaNYL (PF) 50 MCG/ML 2 ML AMP IV ONE (12:15)
[2020-05-22] MEDS ORDERED: MIDAZOLAM 2 MG/2 ML VIAL IV ONE (12:16)
[2020-05-22] MEDS ORDERED: LIDOCAINE 1% INJ 10MG/ML (20 ML MDV) SQ ONE (12:18)
[2020-05-22] MEDS ORDERED: IOPAMIDOL-370 100ML BTL INJ ONE (12:34)
[2020-05-22] MEDS ORDERED: RX INFO: IV CONTRAST WAS GIVEN 1 EACH MISC MISCELLANE PRN (12:39)
[2020-05-22] MEDS: MULTIVITAMINS, THERA 1 EACH TAB PO SCH (13:31)
[2020-05-22] MEDS: PHENYTOIN SODIUM EXTENDED 100 MG CAP PO SCH (13:31)
[2020-05-22] MEDS: PHENYTOIN 50 MG CHEWABLE PO SCH (13:35)
--- NOTE | 2020-05-22 15:02 | P.DS ---
Providers Date of admission: 05/22/20 12:58 Attending physician: Jhonny Anderson Consults: 05/20/20 10:56 Consult Physician Urgent Consulting Provider: Jose Alberto Farris Consult Reason/Comments: chest pain, Do you want consulting provider notified?: Yes 05/20/20 23:49 Consult Physician Routine Consulting Provider: Elias Toro Consult Reason/Comments: sob Do you want consulting provider notified?: Yes Primary care physician: Jhonny Anderson - Discharge Diagnosis(es) (1) Chest pain Current Visit: Yes Status: Acute (2) Weakness Current Visit: Yes Status: Acute (3) Dyspnea Current Visit: No Status: Acute Hospital Course: The patient is an 84-year-old white female essentially admitted for shortness of breath with picture of unstable angina. The patient was scheduled for cardiac catheterization after historical evaluation and chemical evaluation was done. The patient did quite well and will be discharged after cardiac catheterization was found to be nominal. She will be discharged once cleared by cardiology and follow-up with me in 1 week. Patient Condition at Discharge: Stable Plan - Discharge Summary Discharge Rx Participant: No New Discharge Prescriptions: Continue RX: Alendronate Sodium 70 mg PO RX: Aspirin EC [Ecotrin Low Dose] 81 mg PO DAILY@1200 RX: Multivitamins, Thera [Multivitamin (formulary)] 1 tab PO DAILY@1200 RX: Phenytoin Sodium Extended [Dilantin] 200 mg PO HS RX: Phenytoin Sodium Extended [Dilantin] 100 mg PO DAILY@1200 RX: Ascorbic Acid [Vitamin C] 500 mg PO HS RX: Phenytoin [Dilantin Chew] 50 mg PO DAILY@1200 RX: amLODIPine [Norvasc] 5 mg PO QAM RX: Nitroglycerin Sl Tabs [Nitrostat] 0.4 mg SUBLINGUAL Q5M PRN #50 tab PRN Reason: Chest Pain RX: Acetaminophen Tab [Tylenol] 325 mg PO Q6H PRN PRN Reason: Pain RX: Triamterene/Hydrochlorothiazid [Triamterene-Hctz 37.5-25 mg Tb] 1 tab PO DAILY RX: Losartan Potassium [Cozaar] 12.5 mg PO QAM RX: Ergocalciferol [Vitamin D2 (DRISDOL)] 50,000 unit PO Q14D RX: Atorvastatin [Lipitor] 20 mg PO HS Discharge Medication List RX: Alendronate Sodium 70 mg PO TU 06/10/15 [History] RX: Aspirin EC [Ecotrin Low Dose] 81 mg PO DAILY@1200 06/10/15 [History] RX: Multivitamins, Thera [Multivitamin (formulary)] 1 tab PO DAILY@119906/10/15 [History] RX: Ascorbic Acid [Vitamin C] 500 mg PO 06/11/15 [History] RX: Phenytoin Sodium Extended [Dilantin] 100 mg PO DAILY@119906/11/15 [History] RX: Phenytoin Sodium Extended [Dilantin] 200 mg PO 06/11/15 [History] RX: Phenytoin [Dilantin Chew] 50 mg PO DAILY@1200 03/30/19 [History] RX: amLODIPine [Norvasc] 5 mg PO QA 04/09/19 [History] RX: Nitroglycerin Sl Tabs [Nitrostat] 0.4 mg SUBLINGUAL Q5M PRN #50 tab 04/15/19 [Rx] RX: Acetaminophen Tab [Tylenol] 325 mg PO Q6H PRN 10/04/19 [History] RX: Atorvastatin [Lipitor] 20 mg PO 10/04/19 [History] RX: Ergocalciferol [Vitamin D2 (DRISDOL)] 50,000 unit PO Q14D 10/04/19 [History] RX: Losartan Potassium [Cozaar] 12.5 mg PO QA 10/04/19 [History] RX: Triamterene/Hydrochlorothiazid [Triamterene-Hctz 37.5-25 mg Tb] 1 tab PO DAILY 10/04/19 [History] Follow up Appointment(s)/Referral(s): Jhonny Anderson MD [Primary Care Provider] - 1-2 days Elias Toro MD [STAFF PHYSICIAN] - 1 Week
[2020-05-22 16:52] VITALS: TEMP 97.7
[2020-05-22 16:56] VITALS: BP 151/53; PULSE 53; RESP 20
[2020-05-22] MEDS ORDERED: NON FORMULARY DRUG (Alendronate Sodium [Alendronate Sodium] 70 MG) PO SCH (17:30)
--- NOTE | 2020-05-22 18:51 | CC ---
CARDIAC CATHETERIZATION REPORT INDICATION: Unstable angina. This is an 84-year-old lady who is admitted to hospital with unstable angina and was advised to undergo cardiac catheterization to evaluate for ischemic heart disease. PROCEDURE NOTE: After obtaining informed consent, left heart catheterization and coronary angiogram were performed via the right femoral artery using standard John catheters. Patient tolerated the procedure well without any obvious immediate complications. A femoral angiogram was performed and Angio-Seal will be deployed for hemostasis. Patient received moderate conscious sedation. Total sedation time was 18 minutes. FINDINGS: HEMODYNAMICS: Left ventricular end-diastolic pressure is 18 mm. There is no significant gradient across the aortic valve. LEFT VENTRICULOGRAM: Left ventriculogram was not performed. ANGIOGRAPHIC DATA: LEFT MAIN CORONARY ARTERY: Left main coronary artery is a normal-sized vessel and is free of stenosis. Divides into left anterior descending coronary artery and circumflex coronary artery. LAD and its branches, circumflex coronary artery and its branches are free of significant stenosis. RIGHT CORONARY ARTERY: Right coronary artery is a large dominant vessel and is free of significant stenosis. The patient's aorta appears tortuous. CONCLUSIONS: 1. Normal coronary arteries. 2. Normal left ventricular end-diastolic pressure. PLAN: I reviewed angiographic data with the patient. Her management is going to be with medical therapy. An echocardiogram on this admission revealed an ejection fraction of 45%. MMODL / IJN: [id number] /
== END 2020-05-22 20:10 | disposition home or self-care (01) ==
LOC: EC 09:11 → 3SCARD 10:38 → INTOOBSV 10:38 → 3SCARD 17:00 → OBSVTOIN 05-22 12:58 → INTOOBSV 05-22 12:58 → UNDODISIN 05-22 20:10
PROVIDERS: ADMIT Family Medicine; ATTEND Family Medicine
PROC: 4A023N7 Measurement of Cardiac Sampling and Pressure, Left Heart, Percutaneous Approach (ICD-10-PCS; principal; 2020-05-22 10:30)
PROC: B2111ZZ Fluoroscopy of Multiple Coronary Arteries using Low Osmolar Contrast (ICD-10-PCS; principal; 2020-05-22 10:30)
DX: E78.5 Hyperlipidemia, unspecified (principal); R07.89 Other chest pain; I11.0 Hypertensive heart disease with heart failure; I50.23 Acute on chronic systolic (congestive) heart failure; J98.11 Atelectasis; J45.20 Mild intermittent asthma, uncomplicated; Z20.828 Contact with and (suspected) exposure to other viral communicable diseases; I45.6 Pre-excitation syndrome; I49.3 Ventricular premature depolarization; M17.0 Bilateral primary osteoarthritis of knee; G40.909 Epilepsy, unspecified, not intractable, without status epilepticus; H93.13 Tinnitus, bilateral; M41.9 Scoliosis, unspecified; R79.89 Other specified abnormal findings of blood chemistry; E66.9 Obesity, unspecified; Z68.27 Body mass index [BMI] 27.0-27.9, adult; Z79.83 Long term (current) use of bisphosphonates; Z79.82 Long term (current) use of aspirin; Z79.899 Other long term (current) drug therapy; Z88.1 Allergy status to other antibiotic agents; Z88.2 Allergy status to sulfonamides; Z88.5 Allergy status to narcotic agent; Z88.8 Allergy status to other drugs, medicaments and biological substances; Z91.018 Allergy to other foods; I25.2 Old myocardial infarction; Z87.81 Personal history of (healed) traumatic fracture; Z87.820 Personal history of traumatic brain injury; Z98.41 Cataract extraction status, right eye; Z98.42 Cataract extraction status, left eye; Z90.721 Acquired absence of ovaries, unilateral; Z90.710 Acquired absence of both cervix and uterus; Z90.49 Acquired absence of other specified parts of digestive tract; Z87.42 Personal history of other diseases of the female genital tract; Z87.19 Personal history of other diseases of the digestive system; Z86.010 Personal history of colon polyps; Z81.2 Family history of tobacco abuse and dependence; Z82.5 Family history of asthma and other chronic lower respiratory diseases; Z80.9 Family history of malignant neoplasm, unspecified
CPT/HCPCS: 96376 ×2; 96375; 96361; 96365; 96366; 99285; 36415; 93005; 93306; 93458; 83880; 80061; 80053; 83605; 83735; 84484; 85025 ×3; 85610; 85730 ×3; 81001; 71046; G0378 ×3; C1760; C1769 ×2; C1894; U0003; J2250; J1644 ×2; J2001; J3010; Q9967

== ENCOUNTER 2020-06-22 09:01 | Observation (INO) | payer MEDICARE ==
[2020-06-22] MEDS ORDERED: MECLIZINE 12.5 MG TAB PO STA (09:34)
[2020-06-22] MEDS ORDERED: SODIUM CHLORIDE 0.9% 1,000 ML IV STA (09:34)
[2020-06-22] MEDS ORDERED: METOCLOPRAMIDE 5 MG/ML 2 ML VIAL IVP STA (09:35)
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
[2020-06-22 10:01] LABS: Basophils % (A) 0 %; Eosinophils # (A) 0.1 k/uL (0-0.7); Eosinophils % (A) 2 %; HCT 40.4 % (34.0-46.0); HGB 13.4 gm/dL (11.4-16.0); Lymphocytes # (A) 1.5 k/uL (1.0-4.8); Lymphocytes % (A) 25 %; MCH 30.3 pg (25.0-35.0); MCHC 33.1 g/dL (31.0-37.0); MCV 91.6 fL (80.0-100.0); Mean Platelet Volume 9.2; Monocytes # (A) 0.3 k/uL (0-1.0); Monocytes % (A) 6 %; Neutrophils # (A) 3.8 k/uL (1.3-7.7); Neutrophils % (A) 65 %; Platelet Count 160 k/uL (150-450); RBC 4.41 m/uL (3.80-5.40); WBC 5.9 k/uL (3.8-10.6)
[2020-06-22 10:10] LABS: ALT 19 U/L (4-34); AST 32 U/L (14-36); African American GFR (CKD) >90 (>60 ml/min/1.73 sqM); Alkaline Phosphatase 118 U/L (38-126); Anion Gap 7 mmol/L; Blood Urea Nitrogen 13 mg/dL (7-17); Calcium 9.4 mg/dL (8.4-10.2); Carbon Dioxide 29 mmol/L (22-30); Chloride 102 mmol/L (98-107); Glucose 122 mg/dL (74-99); Non-African American GFR(CKD) 86 (>60 ml/min/1.73 sqM); Potassium 3.7 mmol/L (3.5-5.1); Sodium 138 mmol/L (137-145); Total Bilirubin 0.3 mg/dL (0.2-1.3); Total Protein 6.8 g/dL (6.3-8.2)
[2020-06-22 10:11] LABS: Partial Thromboplastin Time 22.9 sec (22.0-30.0); Prothrombin Time 10.2 sec (9.0-12.0)
--- NOTE | 2020-06-22 10:25 | CT ---
EXAMINATION TYPE: CT brain wo con DATE OF EXAM: 06/22/2020 COMPARISON: 01/18/2014 INDICATION: Vertigo DLP: 1176.4 mGycm, Automated exposure control for dose reduction was used. CONTRAST: None CT of the brain is performed utilizing 3 mm thick sections through the posterior fossa and 3 mm thick sections through the remaining calvarium. Study is performed within 24 hours of arrival to the hosp ital. No abnormal hyperdensity is present to suggest an acute intracranial hemorrhage. No mass lesion is evident. No acute infarcts are evident. Ventricles and sulci are prominent for the patient age. Paranasal sinuses and mastoid air cells within the [id number] are clear. Old left temporal parietal craniotomy defects are evident. IMPRESSIONS: 1. Atrophy. 2. Old postsurgical craniotomy defects.
--- NOTE | 2020-06-22 10:35 | XR ---
EXAMINATION TYPE: XR chest 2V DATE OF EXAM: 06/22/2020 CLINICAL HISTORY: Dizziness TECHNIQUE: Frontal and lateral views of the chest are obtained. COMPARISON: Chest radiograph 05/20/2020 FINDINGS: Redemonstrated S-shaped scoliosis. Cardiomediastinal silhouette unchanged given slightly l ower lung volumes. Pulmonary vasculature is normal. There is no focal air space opacity, pleural effu ina, or pneumothorax seen. Multiple old right-sided rib fracture deformities. IMPRESSION: No acute cardiopulmonary process.
[2020-06-22] MEDS ORDERED: DIAZEPAM 5 MG/ML 2 ML INJ IVP STA (10:56)
[2020-06-22] MEDS ORDERED: NALOXONE 0.4 MG/ML 1 ML VIAL IV PRN (12:46)
[2020-06-22] MEDS ORDERED: LORazepam 2 MG/ML INJ IV PRN (12:46)
[2020-06-22] MEDS ORDERED: MECLIZINE 25 MG TAB PO PRN (12:48)
[2020-06-22] MEDS ORDERED: ACETAMINOPHEN TAB 325 MG TAB PO PRN (15:42)
[2020-06-22] MEDS ORDERED: NITROGLYCERIN SL TABS 0.4 MG TAB SUBLINGUAL PRN (15:42)
[2020-06-22] MEDS: LOSARTAN 25 MG TAB PO SCH (17:26)
[2020-06-22] MEDS: METOCLOPRAMIDE 5 MG/ML 2 ML VIAL IVP SCH ×2 (17:27→23:54)
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
--- NOTE | 2020-06-22 20:04 | US ---
EXAMINATION TYPE: US carotid duplex BILAT DATE OF EXAM: 06/22/2020 COMPARISON: NONE CLINICAL HISTORY: dizziness. Dizziness. EXAM MEASUREMENTS: RIGHT: Peak Systolic Velocity (PSV) cm/sec ----- Right CCA: 75.5 ----- Right ICA: 148.5 ----- Right ECA: 80.6 ICA/CCA ratio: 2.0 RIGHT: End Diastole cm/sec ----- Right CCA: 11.5 ----- Right ICA: 32.3 ----- Right ECA: 0 LEFT: Peak Systolic Velocity (PSV) cm/sec ----- Left CCA: 101.6 ----- Left ICA: 123.9 ----- Left ECA: 58.1 ICA/CCA ratio: 1.2 LEFT: End Diastole cm/sec ----- Left CCA: 11.1 ----- Left ICA: 35.3 ----- Left ECA: 0 VERTEBRALS (direction of flow): Right Vertebral: Antegrade Left Vertebral: Antegrade Rhythm: Normal Vessels dive deep. No significant stenosis seen IMPRESSION: 1. Moderate stenosis between 50 and 69% within the right internal carotid artery. 2. Mild stenosis approaching 50% within the left internal carotid artery. Criteria for Assigning % of Stenosis / Diameter reduction (Estimation based on the indirect measurements of the internal carotid artery velocities (ICA PSV). 1. Normal (no stenosis)=ICA PSV < 125 cm/s: ratio < 2.0: ICA EDV<40 cm/s. 2. Less than 50% stenosis=ICA PSV < 125 cm/s: ratio < 2.0: ICA EDV<40 cm/s. 3. 50 to 69% stenosis=ICA PSV of 125 to 230 cm/s: ration 2.0 ? 4.0: ICA EDV 40-100 cm/s. 4. Greater than 70% stenosis to near occlusion= ICA PSV > 230 cm/s: ratio > 4.0: ICA EDV > 100 cm/s. 5. Near occlusion= ICA PSV velocities may be low or undetectable: variable ratio and ICA EDV. 6. Total occlusion=unable to detect flow.
[2020-06-22] MEDS: ASCORBIC ACID 500 MG TAB PO SCH (20:28)
[2020-06-22] MEDS: PHENYTOIN SODIUM EXTENDED 100 MG CAP PO SCH (20:28)
[2020-06-22] MEDS: ATORVASTATIN 20 MG TAB PO SCH (20:28)
[2020-06-23 02:13] LABS: Folate, Serum >24.0 ng/mL
[2020-06-23] MEDS: METOCLOPRAMIDE 5 MG/ML 2 ML VIAL IVP SCH ×3 (08:16→16:45)
[2020-06-23] MEDS: TRIAMTERENE-HCTZ 37.5-25MG 1 EACH TAB PO SCH (08:16)
[2020-06-23] MEDS: amLODIPine 5 MG TAB PO SCH (08:17)
[2020-06-23] MEDS: LOSARTAN 25 MG TAB PO SCH (08:17)
[2020-06-23] MEDS ORDERED: ERGOCALCIFEROL 50,000 UNIT CAP PO SCH (09:00)
[2020-06-23] MEDS: ASPIRIN 81 MG PO SCH (12:22)
[2020-06-23] MEDS: PHENYTOIN 50 MG CHEWABLE PO SCH (12:22)
[2020-06-23] MEDS: PHENYTOIN SODIUM EXTENDED 100 MG CAP PO SCH ×2 (12:22→20:38)
--- NOTE | 2020-06-23 12:26 | P.CRDCN ---
History of Present Illness Consult date: 06/23/20 Requesting physician: Lavon Person Reason for Consult (text): By/trigeminy History of present illness: History of present illness: This is an 84-year-old female patient of Dr. Farris with history of hypertension, hyperlipidemia. Patient had a recent hospitalization in April of this year at which time echocardiogram revealed EF of 45-50%, mild mitral regurgitation, mild tricuspid regurgitation, mild pulmonary hypertension. She also underwent heart catheterization that revealed normal coronary arteries. At that time, had patient had presented with chest pain. Patient now presents to the hospital with complaints of dizziness and nausea. She was seen by neurology with recommendations for Antivert and recommend adjustments on her seizure medication. Chest x-ray showed no acute cardio pulmonary process. CAT scan of brain showed atrophy and old postsurgical craniotomy defects. EKG was a sinus rhythm with occasional PVCs. cardiac monitor revealed bigeminal PVCs. CBC, electrolytes, renal function all normal. Blood sugar 122. Troponin negative times one draw. Vitamin B12 1053, folate greater than 24, Dilantin level 19.7. The patient denies having any chest pain or shortness of breath. Dizziness is improved. Review Of Systems: Constitutional: No fever, no chills. No weakness, fatigue or lethargy. EENT: No headache. No blurred vision or double vision, no loss of vision. No loss of Hearing, reports dizziness. No nasal drainage or congestion. No epistaxis. No sore throat. Lungs: No shortness of breath, cough, no sputum production. No wheezing. Cardiovascular: No chest pain, no lower extremity edema. No palpitations. No paroxysmal nocturnal dyspnea. No orthopnea. No lightheadedness or dizziness. No syncopal episodes. Abdominal: No abdominal pain. No nausea, vomiting. No diarrhea. No co nstipation. No bloody or tarry stools.. No loss of appetite. Genitourinary: No dysuria, increased frequency, urgency. No urinary retention. Musculoskeletal: No myalgias. No muscle weakness, no gait dysfunction, no frequent falls. No back pain. No neck pain. Integumentary: No wounds, no lesions. No rash or pruritus. No unusual bruising. Neurologic: No aphasia. No facial droop. No change in mentation. No head injury. No headache. No paralysis. No paresthesia. Psychiatric: No depression. No anxiety. No mood swings. Endocrine: No abnormal blood sugars. No weight change. No excessive sweating or thirst. No weight change. Physical examination: Gen: This is an 84-year-old female. Patient is resting bed appears to be comfortable and in no acute distress. VS: Afebrile, heart rate 63, blood pressure 125/68, pulse ox 94% on room air. Orthostatics negative. HEENT: Head is atraumatic, normocephalic. Pupils equal, round. Sclerae is anicteric. NECK: Supple. No JVD. No lymphadenopathy. No thyromegaly. LUNGS: Clear to auscultation. No wheezes or rhonchi. No intercostal retractions. HEART: Irregular rate and rhythm. Systolic murmur. ABDOMEN: Soft. Bowel sounds are present. No masses. No tenderness. EXTREMITIES: No pedal edema. No calf tenderness. Dorsalis pedis +2 bilaterally. NEUROLOGICAL: Patient is awake, alert and oriented x3. Cranial nerves 2 through 12 are grossly intact. Assessment: Dizziness Bigeminy Hypertension Hyperlipidemia Moderate right internal carotid artery stenosis Plan: Obtain 2-D echocardiogram and Doppler study to assess cardiac structure and function Continue cardiac monitoring Check potassium and magnesium levels Further recommendations to follow based on clinical course Thank you kindly for this consultation. Nurse practitioner note has been reviewed, I agree with documented findings and plan of care. Patient was seen and examined. Past Medical History Past Medical History: Hearing Disorder / Deafness, Hyperlipidemia, Hypertension, Myocardial Infarction ([place]), Osteoarthritis (OA), Seizure Disorder Additional Past Medical History / Comment(s): Pt recently admitted to [facility] on 05/20/20 with weakness/dyspnea. Other hx: Pt states she had a [place] after her colonoscopy in 2019, abdnormal heart beat-PACs, seizure associated with anesthesia given for childbirth in the 1960s and a seizure in 2011 pt states was attributed to medication reaction in 2011, blood clot L side on top of skull age 16 yrs with surgery (struck by a rock), diverticulitis with bowel resection, benign colon polyps, bilateral tinnitis, arthritis bilateral knees. Last Myocardial Infarction Date:: ?2019 History of Any Multi-Drug Resistant Organisms: None Reported Past Surgical History: Bowel Resection, Hysterectomy, Orthopedic Surgery, Tonsillectomy Additional Past Surgical History / Comment(s): 05/22/20 cardiac cath-treat medically, L thigh femur fracture with nailing, D&C, R oophorectomy/salpingectomy d/t cysts, 2000 bowel resection d/t diverticulitis, D&C, laparotomy with R oophorectomy/salpingectomy d/t cyst, bilateral cataracts removed, colonoscopy/benign polypectomy, blood clot removed from scalp when pt was 16 yrs old. Past Anesthesia/Blood Transfusion Reactions: Previous Problems w/ Anesthesia, Motion Sickness Additional Past Anesthesia/Blood Transfusion Reaction / Comment(s): Seizure when they tried to put under for child , no hx blood transfusion Smoking Status: Never smoker - Past Family History Father Family Medical History: Cancer Additional Family Medical History / Comment(s): Cancer "all over" Mother Family Medical History: No Reported History Additional Family Medical History / Comment(s): Mother was a smoker. Medications and Allergies Home Medications Medication Instructions Recorded Confirmed Type Alendronate Sodium 70 mg PO TU 06/10/15 06/22/20 History Aspirin EC [Ecotrin Low Dose] 81 mg PO DAILY@119906/10/15 06/22/20 History Multivitamins, Thera [Multivitamin 1 tab PO DAILY@119906/10/15 06/22/20 History (formulary)] Ascorbic Acid [Vitamin C] 500 mg PO HS 06/11/15 06/22/20 History Phenytoin Sodium Extended 100 mg PO DAILY@119906/11/15 06/22/20 History [Dilantin] Phenytoin Sodium Extended 200 mg PO HS 06/11/15 06/22/20 History [Dilantin] Phenytoin [Dilantin Chew] 25 - 50 mg PO DAILY@1200 03/30/19 06/22/20 History amLODIPine [Norvasc] 5 mg PO QAM 04/09/19 06/22/20 History Nitroglycerin Sl Tabs [Nitrostat] 0.4 mg SUBLINGUAL Q5M PRN #50 tab 04/15/19 06/22/20 Rx Acetaminophen Tab [Tylenol] 325 mg PO Q6H PRN 10/04/19 06/22/20 History Atorvastatin [Lipitor] 20 mg PO HS 10/04/19 06/22/20 History Ergocalciferol [Vitamin D2 50,000 unit PO Q14D 10/04/19 06/22/20 History (DRISDOL)] Losartan Potassium [Cozaar] 12.5 mg PO QAM 10/04/19 06/22/20 History Triamterene/Hydrochlorothiazid 1 tab PO DAILY 10/04/19 06/22/20 History [Triamterene-Hctz 37.5-25 mg Tb] Allergies Allergy/AdvReac Type Severity Reaction Status Date / Time levofloxacin [From Levaquin] Allergy Severe Anaphylaxis Verified 06/22/20 09:03 /seizure cephalexin Allergy Dyspnea Verified 06/22/20 09:03 clindamycin Allergy Dyspnea Verified 06/22/20 09:03 moxifloxacin HCl AdvReac Intermediate infection Verified 06/22/20 09:03 [From Vigamox] worse azithromycin AdvReac made Verified 06/22/20 09:03 infection worse. cetirizine HCl AdvReac sore Verified 06/22/20 09:03 [From Zyrtec-D] throat, upset stomach codeine phosphate AdvReac Rash/Hives Verified 06/22/20 09:03 [From Tylenol-Codeine #3] fexofenadine HCl AdvReac Itching Verified 06/22/20 09:03 [From Cori-D] fluocinolone acetonide AdvReac Itching Verified 06/22/20 09:03 neomycin AdvReac itching in Verified 06/22/20 09:03 ears ofloxacin AdvReac Itching in Verified 06/22/20 09:03 ears propoxyphene AdvReac rash,consti Verified 06/22/20 09:03 [From Darvocet-N 100] pation pseudoephedrine HCl AdvReac Itching Verified 06/22/20 09:03 [From Cori-D] strawberry AdvReac Rash/Hives Verified 06/22/20 09:03 sulfamethoxazole AdvReac Itching Verified 06/22/20 09:03 RAW TOMATOES AdvReac Rash/Hives Uncoded 06/22/20 09:03 Physical Exam Vitals: Vital Signs Temp Pulse Pulse Pulse Pulse Pulse Pulse 06/23/20 08:57 68 72 63 06/23/20 07:23 97.7 F 56 L 06/23/20 02:30 06/23/20 02:20 97.8 F 53 L 06/22/20 19:24 65 06/22/20 19:23 98.4 F 65 06/22/20 15:00 98.2 F 64 06/22/20 13:37 98 F 76 06/22/20 12:37 55 L Resp BP BP BP BP BP Pulse Ox 06/23/20 08:57 125/68 148/62 121/71 94 L 06/23/20 07:23 16 127/74 95 06/23/20 02:30 16 06/23/20 02:20 16 143/67 96 06/22/20 19:24 19 06/22/20 19:23 19 125/65 93 L 06/22/20 15:00 12 134/79 95 06/22/20 13:37 16 138/87 96 06/22/20 12:37 16 153/87 93 L Intake and Output 06/22/20 06/23/20 06/23/20 22:59 06:59 14:59 Intake Total 480 Balance 480 Intake: Oral 480 Other: Voiding Method Toilet # Voids 1 1 Results 06/22/20 09:46 06/22/20 09:46 Current Medications Generic Name Dose Route Start Last Admin Trade Name Freq PRN Reason Stop Dose Admin Acetaminophen 325 mg 06/22/20 15:42 Tylenol Tab PO Q6H PRN Pain Amlodipine Besylate 5 mg 06/23/20 09:00 06/23/20 08:17 Norvasc PO 5 mg QAM [facility] Administration Ascorbic Acid 500 mg 06/22/20 21:00 06/22/20 20:28 Vitamin C PO 500 mg HS [facility] Administration Aspirin 81 mg 06/23/20 12:00 Aspirin PO DAILY@1200 [facility] Atorvastatin Calcium 20 mg 06/22/20 21:00 06/22/20 20:28 Lipitor PO 20 mg HS [facility] Administration Ergocalciferol 50,000 unit 06/23/20 09:00 06/23/20 08:17 Vitamin D2 PO 50,000 unit Q14D [facility] Administration Lorazepam 0.5 mg 06/22/20 12:46 Ativan IV Q6HR PRN Anxiety Losartan Potassium 12.5 mg 06/22/20 15:45 06/23/20 08:17 Cozaar PO 12.5 mg QAM [facility] Administration Meclizine HCl 25 mg 06/22/20 12:48 Antivert PO QID PRN Vertigo Metoclopramide HCl 10 mg 06/22/20 18:00 06/23/20 08:16 Reglan IVP 10 mg Q6HR [facility] Administration Naloxone HCl 0.2 mg 06/22/20 12:46 Narcan IV Q2M PRN Opioid Reversal Nitroglycerin 0.4 mg 06/22/20 15:42 Nitrostat SUBLINGUAL Q5M PRN Chest Pain Patient's Own ( 70 mg 06/26/20 07:00 Alendronate Sodium [ PO Alendronate Sodium] TU [facility] 70 Mg) Phenytoin Sodium 25 mg 06/23/20 12:00 Dilantin Chew PO DAILY@1200 [facility] Phenytoin Sodium 100 mg 06/23/20 12:00 Dilantin PO DAILY@1200 [facility] Phenytoin Sodium 200 mg 06/22/20 21:00 06/22/20 20:28 Dilantin PO 200 mg HS [facility] Administration Triamterene/HCTZ 1 each 06/23/20 09:00 06/23/20 08:16 Maxzide-25 PO 1 each DAILY [facility] Administration Intake and Output 06/22/20 06/23/20 06/23/20 22:59 06:59 14:59 Intake Total 480 Balance 480 Intake: Oral 480 Other: Voiding Method Toilet # Voids 1 1 06/22/20 09:46 06/22/20 09:46
--- NOTE | 2020-06-23 12:38 | P.GSCN ---
History of Present Illness History of present illness: 84-year-old white female, patient came with history of dizziness at home no history of drop attack patient has history of 4 hearing disorder and deafness and also patient has history of seizure disorder Patient had a stroke workup CAT scan shows no intracrani bleed patient has some atrophy. Patient had history of brain surgery at age of 16 Medical history history of deafness history of seizure disorder on Dilantin Surgical history patient had brain surgery at age of 16, bowel resection, hysterectomy, Neck examination neck is supple no bruit appreciated Chest clear first and second sound normal good entry both lungs Abdomen soft nontender Vascular examination brachial radial femoral pulses are present patient has a normal motor function Carotid ultrasound shows right side is 50-69 left side is mild disease CAT scan shows atrophy of the brain no intracranial bleeding noted Plan is at this point no role of surgical intervention medical management we'll follow in my office in 3 weeks Past Medical History Past Medical History: Hearing Disorder / Deafness, Hyperlipidemia, Hypertension, Myocardial Infarction ([place]), Osteoarthritis ([place]), Seizure Disorder Additional Past Medical History / Comment(s): Pt recently admitted to [facility] on 05/20/20 with weakness/dyspnea. Other hx: Pt states she had a [place] after her colonoscopy in 2019, abdnormal heart beat-PACs, seizure associated with anesthesia given for childbirth in the and a seizure in 2011 pt states was attributed to medication reaction in 2011, blood clot L side on top of skull age 16 yrs with surgery (struck by a rock), diverticulitis with bowel resection, benign colon polyps, bilateral tinnitis, arthritis bilateral knees. Last Myocardial Infarction Date:: ?2019 History of Any Multi-Drug Resistant Organisms: None Reported Past Surgical History: Bowel Resection, Hysterectomy, Orthopedic Surgery, Tonsillectomy Additional Past Surgical History / Comment(s): 05/22/20 cardiac cath-treat medically, L thigh femur fracture with nailing, D&C, R oophorectomy/salpingectomy d/t cysts, 1999 bowel resection d/t diverticulitis, D&C, laparotomy with R oophorectomy/salpingectomy d/t cyst, bilateral cataracts removed, colonoscopy/benign polypectomy, blood clot removed from scalp when pt was 16 yrs old. Past Anesthesia/Blood Transfusion Reactions: Previous Problems w/ Anesthesia, Motion Sickness Additional Past Anesthesia/Blood Transfusion Reaction / Comm: Seizure when they tried to put under for child , no hx blood transfusion Smoking Status: Never smoker - Past Family History Father Family Medical History: Cancer Additional Family Medical History / Comment(s): Cancer "all over" Mother Family Medical History: No Reported History Additional Family Medical History / Comment(s): Mother was a smoker. Medications and Allergies Home Medications Medication Instructions Recorded Confirmed Type Alendronate Sodium 70 mg PO 06/10/15 06/22/20 History Aspirin EC [Ecotrin Low Dose] 81 mg PO DAILY@119906/10/15 06/22/20 History Multivitamins, Thera [Multivitamin 1 tab PO DAILY@119906/10/15 06/22/20 History (formulary)] Ascorbic Acid [Vitamin C] 500 mg PO 06/11/15 06/22/20 History Phenytoin Sodium Extended 100 mg PO DAILY@119906/11/15 06/22/20 History [Dilantin] Phenytoin Sodium Extended 200 mg PO 06/11/15 06/22/20 History [Dilantin] Phenytoin [Dilantin Chew] 25 - 50 mg PO DAILY@119903/30/19 06/22/20 History amLODIPine [Norvasc] 5 mg PO QAM 04/09/19 06/22/20 History Nitroglycerin Sl Tabs [Nitrostat] 0.4 mg SUBLINGUAL Q5M PRN #50 tab 04/15/19 06/22/20 Rx Acetaminophen Tab [Tylenol] 325 mg PO Q6H PRN 10/04/19 06/22/20 History Atorvastatin [Lipitor] 20 mg PO HS 10/04/19 06/22/20 History Ergocalciferol [Vitamin D2 50,000 unit PO Q14D 10/04/19 06/22/20 History (DRISDOL)] Losartan Potassium [Cozaar] 12.5 mg PO QAM 10/04/19 06/22/20 History Triamterene/Hydrochlorothiazid 1 tab PO DAILY 10/04/19 06/22/20 History [Triamterene-Hctz 37.5-25 mg Tb] Allergies Allergy/AdvReac Type Severity Reaction Status Date / Time levofloxacin [From Levaquin] Allergy Severe Anaphylaxis Verified 06/22/20 09:03 /seizure cephalexin Allergy Dyspnea Verified 06/22/20 09:03 clindamycin Allergy Dyspnea Verified 06/22/20 09:03 moxifloxacin HCl AdvReac Intermediate infection Verified 06/22/20 09:03 [From Vigamox] worse azithromycin AdvReac made Verified 06/22/20 09:03 infection worse. cetirizine HCl AdvReac sore Verified 06/22/20 09:03 [From Zyrtec-D] throat, upset stomach codeine phosphate AdvReac Rash/Hives Verified 06/22/20 09:03 [From Tylenol-Codeine #3] fexofenadine HCl AdvReac Itching Verified 06/22/20 09:03 [From Cori-D] fluocinolone acetonide AdvReac Itching Verified 06/22/20 09:03 neomycin AdvReac itching in Verified 06/22/20 09:03 ears ofloxacin AdvReac Itching in Verified 06/22/20 09:03 ears propoxyphene AdvReac rash,consti Verified 06/22/20 09:03 [From Darvocet-N 100] pation pseudoephedrine HCl AdvReac Itching Verified 06/22/20 09:03 [From Cori-D] strawberry AdvReac Rash/Hives Verified 06/22/20 09:03 sulfamethoxazole AdvReac Itching Verified 06/22/20 09:03 RAW TOMATOES AdvReac Rash/Hives Uncoded 06/22/20 09:03 Surgical - Exam Vital Signs Temp Pulse Resp BP Pulse Ox 98.1 F 66 16 172/73 96 06/22/20 09:03 06/22/20 09:03 06/22/20 09:03 06/22/20 09:03 06/22/20 09:03 Results - Labs 06/22/20 09:46 06/22/20 09:46 Abnormal Lab Results - Last 24 Hours (Table) 06/22/20 Range/Units 09:46 Vitamin B12 1053.0 H (200.0-944.0) pg/mL
--- NOTE | 2020-06-23 13:00 | ECHOF ---
Referral Reason:triogeminy MEASUREMENTS -------- HEIGHT: 157.5 cm WEIGHT: 68.0 kg BP: RVIDd: 3.3 cm (< 3.3) IVSd: 1.5 cm (0.6 - 1.1) LVIDd: 4.4 cm (3.9 - 5.3) LVPWd: 1.2 cm (0.6 - 1.1) IVSs: 1.6 cm LVIDs: 3.4 cm LVPWs: 1.1 cm LA Diam: 4.2 cm (2.7 - 3.8) LAESV Index (A-L): 29.09 ml/m Ao Diam: 2.5 cm (2.0 - 3.7) AV Cusp: 1.7 cm (1.5 - 2.6) MV EXCURSION: 15.618 mm (> 18.000) MV EF SLOPE: 82 mm/s (70 - 150) EPSS: 0.4 cm MV E Sukumar: 0.38 m/s MV DecT: 281 ms MV A Sukumar: 0.81 m/s MV E/A Ratio: 0.47 RAP: 5.00 mmHg RVSP: 46.80 mmHg FINDINGS -------- Undetermined rhythm. This was a technically good study. The left ventricular size is normal. There is moderate concentric left ventricular hypertrophy. O verall left ventricular systolic function is low-normal with, an EF between 50 - 55 %. The right ventricle is normal in size. The left atrium is mildly dilated. LA is midly dilated 29-33ml/m2. The right atrial size is normal. There is mild aortic valve sclerosis. There is no evidence of aortic regurgitation. Mild mitral regurgitation is present. [id number] tricuspid regurgitation present. There is moderate pulmonary hypertension. There is no pulmonic regurgitation present. The aortic root size is normal. Normal inferior vena cava with normal inspiratory collapse consistent with estimated right atrial pre ssure of 5 mmHg. There is no pericardial effusion. CONCLUSIONS -------- 1. The left ventricular size is normal. 2. There is moderate concentric left ventricular hypertrophy. 3. Overall left ventricular systolic function is low-normal with, an EF between 50 - 55 %. 4. The right ventricle is normal in size. 5. The left atrium is mildly dilated. 6. LA is midly dilated 29-33ml/m2. 7. The right atrial size is normal. 8. There is mild aortic valve sclerosis. 9. Mild mitral regurgitation is present. 10. Leln-ov-mpwudbhw tricuspid regurgitation present. 11. There is moderate pulmonary hypertension. SODA CLERK: Gabi Martin RDCS
[2020-06-23 13:46] LABS: Calcium 9.1 mg/dL (8.4-10.2); Potassium 3.9 mmol/L (3.5-5.1)
--- NOTE | 2020-06-23 13:47 | HP ---
HISTORY AND PHYSICAL CHIEF COMPLAINT: Dizziness. HISTORY OF PRESENT ILLNESS: This is an 84-year-old woman with a past medical history of multiple medical problems including hypertension, hyperlipidemia, history of myocardial infarction, history of DJD, history of seizure disorder, being followed by Dr. Anderson in the outpatient was recently admitted with weakness and shortness of breath. The patient had a myocardial infarction after colonoscopy. The patient also had cardiac catheterization during the recent admission which was negative. At this time, the patient is complaining of severe dizziness. The patient had vertiginous and spinning type of sensation. The dizziness was worse on acute head movements and upward position. The patient came to [facility] and had multiple evaluations. The patient had a CT of the brain in the ER which showed stable atrophy and postsurgical craniotomy defects. Otherwise, carotid Doppler was done which showed moderate stenosis involving the 50-69% of the right internal carotid artery, mild stenosis approaching 50% of the left carotid artery. Vascular surgery evaluation in progress. There is no history of fever, rigors. chills. No headache, loss of consciousness, seizures. PAST MEDICAL HISTORY: History of hypertension, hyperlipidemia, myocardial infarction, DJD, seizure disorder. MEDICATIONS: Prior to admission include home medications are; 1. Norvasc 5 mg q.a.m. 2. Triamterene 37.5 mg/20 mg p.o. daily. 3. Phenytoin 50 mg p.o. daily. 4. Dilantin 200 mg p.o. daily and 200 mg q.h.s. 5. Nitrostat 0.4 mg sublingual p.r.n. 6. Multivitamin. 7. Cozaar 12.5 mg q.a.m. 8. Vitamin D2 50,000 p.o. q.14 days. 9. Lipitor 20 mg q.h.s. 10.Ecotrin 81 mg p.o. daily. 11.Vitamin C 400 mg q.h.s. 12.Fosamax 70 mg p.o. Thursday. 13.Tylenol 325 mg p.o. q.6 p.r.n. ALLERGIES: Multiple allergies include LEVAQUIN, CEPHALEXIN, CLINDAMYCIN, MOXIFLOXACIN, ZITHROMAX, CETIRIZINE, CODEINE, KAIA-D, FLUOCINOLONE, NEOMYCIN, OFLOXACIN, PROPOXYPHENE, KAIA, AND STRAWBERRY, SULFA MEDICATIONS FAMILY HISTORY: History of cancer in the family. SOCIAL HISTORY: History of smoking. No history of alcohol. REVIEW OF SYSTEMS: ENT: No diminished hearing or vision, otherwise as mentioned earlier. CARDIOVASCULAR: No angina or palpitations. RESPIRATORY: As mentioned earlier. GI: No nausea or vomiting. : No dysuria. NERVOUS SYSTEM: No numbness or weakness. ALLERGY/IMMUNOLOGY: No asthma or hayfever. MUSCULOSKELETAL: As mentioned earlier. HEMATOLOGY/ONCOLOGY: No history of anemia. ENDOCRINE: No history of diabetes or hypothyroidism. CONSTITUTIONAL: As mentioned earlier. DERMATOLOGY: Negative. RHEUMATOLOGY: Negative. PSYCHIATRY: As mentioned earlier. PHYSICAL EXAM: Patient is alert, oriented x3. The pulse is 68. Blood pressure 125/60, respirations 20, temp 97.7, pulse ox 94% on room air. HEENT: Conjunctivae are normal. NECK: No jugular venous distension. CARDIOVASCULAR: S1 and S2 muffled. RESPIRATORY: Breath sounds diminished in the bases, no rhonchi or crackles. ABDOMEN: Soft, nontender. No masses. LEGS: No edema, no swelling. NERVOUS SYSTEM: Higher functions As mentioned earlier. Moves all four limites. No focal motor or sensory deficits. LYMPHATICS: No lymph nodes in the neck or axillae. SKIN: No rashes, no ulcers. JOINTS: No active deforming arthropathy. LABS: CBC within normal limits. Glucose 120. Vitamin B12 is 1053. ASSESSMENT: 1. Dizziness for evaluation, possible benign positional vertigo, rule out transient ischemic attack .. 2. Bilateral internal carotid artery stenosis, moderate on the right, with 50- 69% and on the left side with 50%. 3. Elevated random blood sugar. 4. Hypertension. 5. Hyperlipidemia. 6. Myocardial infarction. 7. History of degenerative joint disease. 8. History of seizure disorder. 9. History of premature atrial contractions. 10.History of bowel resection. 11.Hysterectomy. 12.FULL CODE. RECOMMENDATIONS AND DISCUSSION: This is an 84-year-old woman who presented with multiple complex medical issues, we will monitor the patient closely. Continue the current management and continue symptomatic treatment. Otherwise at this time, I recommend vascular surgery consultation. Cardiology has seen the patient. Neurology evaluation. I would also recommend symptomatic Antivert. Check lipids. Prognosis guarded. Further recommendations to follow. MMODL / IJN: [id number] / MERYL
[2020-06-23 15:17] LABS: Appearance,Urine Clear (Clear); Bilirubin,Urine Negative (Negative); Blood,Urine Negative (Negative); Color,Urine Light Yellow; Glucose,Urine (UA) Negative (Negative); Ketones,Urine Negative (Negative); Leukocyte Esterase,Urine Negative (Negative); Nitrite,Urine Negative (Negative); PH, Urine 6.5 (5.0-8.0); Protein,Urine Negative (Negative); Specific Gravity,Urine 1.011 (1.001-1.035); Urobilinogen,Urine <2.0 mg/dL (<2.0)
[2020-06-23] MEDS: MECLIZINE 12.5 MG TAB PO SCH ×2 (16:45→20:38)
[2020-06-23] MEDS: ATORVASTATIN 20 MG TAB PO SCH (20:38)
[2020-06-23] MEDS: ASCORBIC ACID 500 MG TAB PO SCH (20:38)
[2020-06-24] MEDS: METOCLOPRAMIDE 5 MG/ML 2 ML VIAL IVP SCH ×6 (01:17→23:51)
[2020-06-24 06:43] LABS: Basophils % (A) 1 %; Eosinophils # (A) 0.2 k/uL (0-0.7); Eosinophils % (A) 4 %; HCT 38.1 % (34.0-46.0); HGB 12.4 gm/dL (11.4-16.0); Lymphocytes # (A) 1.5 k/uL (1.0-4.8); Lymphocytes % (A) 28 %; MCHC 32.5 g/dL (31.0-37.0); MCV 92.1 fL (80.0-100.0); Mean Platelet Volume 8.8; Monocytes # (A) 0.4 k/uL (0-1.0); Monocytes % (A) 7 %; Neutrophils # (A) 3.2 k/uL (1.3-7.7); Neutrophils % (A) 59 %; Platelet Count 143 k/uL (150-450); RBC 4.13 m/uL (3.80-5.40); RDW 13.2 % (11.5-15.5); WBC 5.4 k/uL (3.8-10.6)
[2020-06-24 06:52] LABS: African American GFR (CKD) >90 (>60 ml/min/1.73 sqM); Anion Gap 4 mmol/L; Blood Urea Nitrogen 16 mg/dL (7-17); Calcium 8.7 mg/dL (8.4-10.2); Carbon Dioxide 30 mmol/L (22-30); Chloride 104 mmol/L (98-107); Glucose 87 mg/dL (74-99); Non-African American GFR(CKD) >90 (>60 ml/min/1.73 sqM); Potassium 3.9 mmol/L (3.5-5.1); Sodium 138 mmol/L (137-145)
[2020-06-24] MEDS: MECLIZINE 12.5 MG TAB PO SCH ×3 (08:49→21:04)
[2020-06-24] MEDS: LOSARTAN 25 MG TAB PO SCH (08:49)
[2020-06-24] MEDS: TRIAMTERENE-HCTZ 37.5-25MG 1 EACH TAB PO SCH (08:49)
[2020-06-24] MEDS: amLODIPine 5 MG TAB PO SCH (08:52)
--- NOTE | 2020-06-24 10:06 | PN ---
PROGRESS NOTE Deloris is an 84-year-old lady who is admitted to hospital with dizziness and Cardiology had been consulted for the same. This morning she still has dizziness, but this is much better. She had been diagnosed with a carotid stenosis on this admission and had been evaluated by Dr. Tidwell who did not think he needed to operate on her at this time. On an echocardiogram I performed, she has normal LV systolic function with mild mitral and [id number]-[id number] tricuspid regurgitation and pulmonary hypertension. CURRENT MEDICATIONS: Include amlodipine 5 mg daily, Lipitor, Ativan, Cozaar. EXAM: Comfortable at rest. Blood pressure is elevated at 150/60, respiratory is 18. There is no jugular venous distention. Carotid upstroke is normal. There is no bruit. Chest exam reveals good air entry bilaterally. Heart exam reveals first and second heart sounds. No gallop. No murmur. No rub. Abdomen is soft, nontender. Exam of extremities did not reveal any edema. Peripheral pulses are felt. [employer] exam did not reveal any focal neurological deficits. LABS: Show a hemoglobin of 12.4, platelet count is 140, potassium is 3.9, creatinine is 0.49. ASSESSMENT: 1. Dizziness probably noncardiac in origin. 2. Hypertension. PLAN: Continue the patient on current medications and we will follow the patient in the outpatient setting and investigate further as we need to. The patient sees Dr. Farris in the office and will follow up with him next week. MMODL / TATIANAN: [id number] /
[2020-06-24 10:57] LABS: Cholesterol 92 mg/dL (<200); HDL Cholesterol 49 mg/dL (40-60); LDL Cholesterol,Calculated 31 mg/dL (0-99); Triglycerides 59 mg/dL (<150)
[2020-06-24] MEDS: PHENYTOIN 50 MG CHEWABLE PO SCH (11:15)
[2020-06-24] MEDS: PHENYTOIN SODIUM EXTENDED 100 MG CAP PO SCH ×2 (11:15→21:04)
[2020-06-24] MEDS: ASPIRIN 81 MG PO SCH (11:15)
[2020-06-24] MEDS ORDERED: MULTIVITAMINS, THERA 1 EACH TAB PO SCH (12:00)
--- NOTE | 2020-06-24 14:54 | PN ---
PROGRESS NOTE DATE OF SERVICE: 06/24/2020 I am covering for Dr. Anderson. This 84-year-old woman was admitted for dizziness, also had bilateral internal carotid stenosis. The patient is not a surgical candidate yet and multiple consultants are following the patient closely. The patient is still dizzy. No chest pain. No palpitations. No fever. PHYSICAL EXAMINATION: GENERAL: Patient is alert and oriented times three. VITAL SIGNS: Blood pressure 151/60, respirations 16, temperature 98.1, pulse ox 94% on room air HEENT: Conjunctivae normal. NECK: No jugular venous distention. RESPIRATORY: Breath sounds diminished at the bases. No rhonchi, no crackles. HEART: S1 and S2, muffled. ABDOMEN: Soft, no tenderness. EXTREMITIES: No edema, no swelling. NERVOUS: Mild unsteadiness of gait. LABS: Platelets 143. Other labs are noted. Lipid panel is normal. ASSESSMENT: 1. Dizziness, possible benign positional vertigo, rule out transient ischemic attack. 2. Bilateral internal carotid artery stenosis, moderate on the right, with 50-60 percent and on the left side with 50%. 3. Elevated random blood sugar. 4. Hypertension. 5. Hyperlipidemia history. 6. History of myocardial infarction. 7. History of degenerative joint disease. 8. History of seizure disorder. 9. Premature atrial contractions. 10.History of bowel resection. 11.Hysterectomy. 12.FULL CODE. RECOMMENDATIONS AND DISCUSSION: Recommend to continue current medications, continue to monitor. Symptomatic treatment. Otherwise at this time I would recommend continue with antiplatelet agents and also continue the rest of the medications. Symptomatic treatment. Increase ambulation. Follow closely with neurology. Further recommendations to follow. MMODL / IJN: [id number] /
[2020-06-24] MEDS: ASCORBIC ACID 500 MG TAB PO SCH (21:03)
[2020-06-24] MEDS: ATORVASTATIN 20 MG TAB PO SCH (21:04)
[2020-06-25 04:07] VITALS: RESP 16
[2020-06-25] MEDS: METOCLOPRAMIDE 5 MG/ML 2 ML VIAL IVP SCH (05:26)
[2020-06-25 07:01] LABS: Basophils % (A) 1 %; Eosinophils # (A) 0.2 k/uL (0-0.7); Eosinophils % (A) 4 %; HCT 41.8 % (34.0-46.0); HGB 13.3 gm/dL (11.4-16.0); Lymphocytes # (A) 1.9 k/uL (1.0-4.8); Lymphocytes % (A) 32 %; MCH 29.5 pg (25.0-35.0); MCHC 31.9 g/dL (31.0-37.0); MCV 92.7 fL (80.0-100.0); Mean Platelet Volume 9.1; Monocytes # (A) 0.4 k/uL (0-1.0); Monocytes % (A) 6 %; Neutrophils # (A) 3.3 k/uL (1.3-7.7); Neutrophils % (A) 56 %; Platelet Count 167 k/uL (150-450); RBC 4.51 m/uL (3.80-5.40); RDW 13.2 % (11.5-15.5); WBC 5.9 k/uL (3.8-10.6)
[2020-06-25 07:10] LABS: African American GFR (CKD) >90 (>60 ml/min/1.73 sqM); Anion Gap 6 mmol/L; Blood Urea Nitrogen 19 mg/dL (7-17); Calcium 8.9 mg/dL (8.4-10.2); Carbon Dioxide 31 mmol/L (22-30); Chloride 102 mmol/L (98-107); Glucose 85 mg/dL (74-99); Non-African American GFR(CKD) 84 (>60 ml/min/1.73 sqM); Potassium 4.2 mmol/L (3.5-5.1); Sodium 139 mmol/L (137-145)
[2020-06-25 07:15] VITALS: BP 149/77; PULSE 57; TEMP 98.4
[2020-06-25] MEDS: amLODIPine 5 MG TAB PO SCH (08:04)
[2020-06-25] MEDS: LOSARTAN 25 MG TAB PO SCH (08:05)
[2020-06-25] MEDS: MECLIZINE 12.5 MG TAB PO SCH (08:05)
[2020-06-25] MEDS: TRIAMTERENE-HCTZ 37.5-25MG 1 EACH TAB PO SCH (08:05)
[2020-06-26] MEDS ORDERED: ALENDRONATE SODIUM 70 MG PO SCH (07:00)
--- NOTE | 2020-07-05 13:02 | P.DS ---
Providers Date of admission: 06/24/20 14:38 Attending physician: Jhonny Anderson Consults: 06/22/20 12:47 Consult Physician Urgent Consulting Provider: Meena Mckee Consult Reason/Comments: Intractable vertigo Do you want consulting provider notified?: Yes 06/23/20 09:34 Consult Physician Urgent Consulting Provider: Moris Liao Consult Reason/Comments: bi/tri geminy Do you want consulting provider notified?: Yes 06/23/20 11:30 Consult Physician Urgent Consulting Provider: Ferdinand Tidwell Consult Reason/Comments: carodid artery us results Do you want consulting provider notified?: Yes Primary care physician: Jhonny Anderson Hospital Course: This is discharge from an 85-year-old white female essentially admitted for vertigo. She was cleared by multiple consultants and was now stabilizing. El ement of dehydration with medication changes were noted. She is not able that it without difficulty tolerating diet and will follow up with me in about 5 to days. Patient Condition at Discharge: Good Plan - Discharge Summary Discharge Rx Participant: No New Discharge Prescriptions: Continue Alendronate Sodium 70 mg PO TU Aspirin EC [Ecotrin Low Dose] 81 mg PO DAILY@1200 Multivitamins, Thera [Multivitamin (formulary)] 1 tab PO DAILY@1200 Phenytoin Sodium Extended [Dilantin] 200 mg PO HS Phenytoin Sodium Extended [Dilantin] 100 mg PO DAILY@1200 Ascorbic Acid [Vitamin C] 500 mg PO HS Phenytoin [Dilantin Chew] 25 - 50 mg PO DAILY@1200 amLODIPine [Norvasc] 5 mg PO QAM Nitroglycerin Sl Tabs [Nitrostat] 0.4 mg SUBLINGUAL Q5M PRN #50 tab PRN Reason: Chest Pain Acetaminophen Tab [Tylenol] 325 mg PO Q6H PRN PRN Reason: Pain Triamterene/Hydrochlorothiazid [Triamterene-Hctz 37.5-25 mg Tb] 1 tab PO DAILY Losartan Potassium [Cozaar] 12.5 mg PO QAM Ergocalciferol [Vitamin D2 (DRISDOL)] 50,000 unit PO Q14D Atorvastatin [Lipitor] 20 mg PO HS Discharge Medication List Alendronate Sodium 70 mg PO TU 06/10/15 [History] Aspirin EC [Ecotrin Low Dose] 81 mg PO DAILY@1200 06/10/15 [History] Multivitamins, Thera [Multivitamin (formulary)] 1 tab PO DAILY@1200 06/10/15 [History] Ascorbic Acid [Vitamin C] 500 mg PO HS 06/11/15 [History] Phenytoin Sodium Extended [Dilantin] 100 mg PO DAILY@1200 06/11/15 [History] Phenytoin Sodium Extended [Dilantin] 200 mg PO HS 06/11/15 [History] Phenytoin [Dilantin Chew] 25 - 50 mg PO DAILY@1200 03/30/19 [History] amLODIPine [Norvasc] 5 mg PO QAM 04/09/19 [History] Nitroglycerin Sl Tabs [Nitrostat] 0.4 mg SUBLINGUAL Q5M PRN #50 tab 04/15/19 [Rx] Acetaminophen Tab [Tylenol] 325 mg PO Q6H PRN 10/04/19 [History] Atorvastatin [Lipitor] 20 mg PO HS 10/04/19 [History] Ergocalciferol [Vitamin D2 (DRISDOL)] 50,000 unit PO Q14D 10/04/19 [History] Losartan Potassium [Cozaar] 12.5 mg PO QAM 10/04/19 [History] Triamterene/Hydrochlorothiazid [Triamterene-Hctz 37.5-25 mg Tb] 1 tab PO DAILY 10/04/19 [History] Follow up Appointment(s)/Referral(s): Jhonny Anderson MD [Primary Care Provider] - 06/28/20 4:20 pm Moris Liao MD [STAFF PHYSICIAN] - 06/27/20 5:00 pm Patient Instructions/Handouts: Vertigo (DC) Discharge Disposition: HOME SELF-CARE
== END 2020-06-25 10:55 | disposition home or self-care (01) ==
LOC: EC 09:01 → 1SOBS 12:54 → INTOOBSV 06-24 14:38 → OBSVTOIN 06-24 14:38 → UNDODISIN 06-25 10:55
PROVIDERS: ADMIT Family Medicine; ATTEND Family Medicine
DX: R42 Dizziness and giddiness (principal); E86.0 Dehydration; I65.23 Occlusion and stenosis of bilateral carotid arteries; R73.9 Hyperglycemia, unspecified; I10 Essential (primary) hypertension; E78.5 Hyperlipidemia, unspecified; I25.2 Old myocardial infarction; M17.0 Bilateral primary osteoarthritis of knee; G40.909 Epilepsy, unspecified, not intractable, without status epilepticus; I49.1 Atrial premature depolarization; H93.13 Tinnitus, bilateral; I49.3 Ventricular premature depolarization; G31.9 Degenerative disease of nervous system, unspecified; H91.90 Unspecified hearing loss, unspecified ear; I08.3 Combined rheumatic disorders of mitral, aortic and tricuspid valves; I27.20 Pulmonary hypertension, unspecified; R00.8 Other abnormalities of heart beat; Z79.899 Other long term (current) drug therapy; Z79.82 Long term (current) use of aspirin; Z88.1 Allergy status to other antibiotic agents; Z88.8 Allergy status to other drugs, medicaments and biological substances; Z88.5 Allergy status to narcotic agent; Z91.018 Allergy to other foods; Z88.2 Allergy status to sulfonamides; Z87.820 Personal history of traumatic brain injury; Z98.890 Other specified postprocedural states; Z87.19 Personal history of other diseases of the digestive system; Z90.49 Acquired absence of other specified parts of digestive tract; Z90.710 Acquired absence of both cervix and uterus; Z90.89 Acquired absence of other organs; Z90.721 Acquired absence of ovaries, unilateral; Z90.79 Acquired absence of other genital organ(s); Z87.42 Personal history of other diseases of the female genital tract; Z98.41 Cataract extraction status, right eye; Z98.42 Cataract extraction status, left eye; Z86.010 Personal history of colon polyps; Z91.89 Other specified personal risk factors, not elsewhere classified; Z87.898 Personal history of other specified conditions; Z87.891 Personal history of nicotine dependence; Z96.89 Presence of other specified functional implants; Z80.9 Family history of malignant neoplasm, unspecified; Z82.5 Family history of asthma and other chronic lower respiratory diseases; Z81.2 Family history of tobacco abuse and dependence
CPT/HCPCS: 96361 ×3; 96376 ×3; 96374; 96375; 99285; 36415; 93005; 93306; 80061; 80053; 80048 ×3; 82607; 80185; 82746; 83735; 84484; 85025 ×3; 85610; 85730; 81003; 71046; 93880; 70450; G0378 ×4; J2765 ×4; J3360

== ENCOUNTER → 2020-07-31 | Outpatient (CLI) | payer MEDICARE ==
--- NOTE | 2020-08-02 09:23 | MM ---
Reason for exam: screening (asymptomatic). Last mammogram was performed 1 year ago. History: Patient is postmenopausal. Benign US biopsy breast VAD LT of the left breast, July 23, 2016. Benign excisional biopsy of the right breast, 1971. Took estrogen for 18 years beginning at age 58. Physical Findings: A clinical breast exam by your physician is recommended on an annual basis and results should be correlated with mammographic findings. MG 3D Screening Mammo W/Cad Bilateral CC and MLO view(s) were taken. Prior study comparison: July 30, 2019, bilateral MG 3d screening mammo w/cad. July 22, 2018, bilateral MG 3d screening mammo w/cad. There are scattered fibroglandular densities. Previous mammotome biopsy in the left breast. Moles along the inferior aspect of both breasts. No significant changes when compared with prior studies. ASSESSMENT: Negative, BI-RAD 1 RECOMMENDATION: Routine screening mammogram of both breasts in 1 year.
== END | disposition home or self-care (01) ==
LOC: RADMAMWWP 13:47
PROVIDERS: ATTEND Obstetrics & Gynecology
DX: Z12.31 Encounter for screening mammogram for malignant neoplasm of breast (principal)
CPT/HCPCS: 77063; 77067

== ENCOUNTER → 2021-02-20 | Outpatient (CLI) | payer MEDICARE ==
--- NOTE | 2021-02-20 14:35 | XR ---
Lumbar spine HISTORY: Lumbar pain 3 views of the lumbar spine There is a levoscoliosis centered at the thoracic lumbar junction. There are overlying artifacts. Bon e mineralization is reduced. Postop changes noted within the pelvis. There is an accentuated lordosis present. Multilevel spondylosis is present. Some loss of disc height present at the intervertebral l evels. Anterolisthesis grade 1 L5-S1, L4-5. Sclerosis is present in the posterior elements of the lum bar spine. Apical scarring calcifications in the aortoiliac distribution. IMPRESSION: Degenerative disc disease, facet arthropathy, osteopenia, accentuated lordosis in spinal curvature. Postop changes.
== END | disposition home or self-care (01) ==
LOC: RADXRMAIN 10:43
PROVIDERS: ATTEND Family Medicine
DX: M51.36 Other intervertebral disc degeneration, lumbar region (principal); M47.816 Spondylosis without myelopathy or radiculopathy, lumbar region; M85.88 Other specified disorders of bone density and structure, other site; M40.56 Lordosis, unspecified, lumbar region
CPT/HCPCS: 72100

== ENCOUNTER → 2021-03-20 | Outpatient (CLI) | payer MEDICARE ==
--- NOTE | 2021-03-20 12:32 | XR ---
EXAMINATION TYPE: XR ribs LT DATE OF EXAM: 03/20/2021 COMPARISON: NONE HISTORY: Pain TECHNIQUE: 4 views of the left ribs submitted FINDINGS: Arthropathy of the shoulder. Calcifications in left axilla is suspected calcification in th e course of the rotator cuff tendon. Correlate for calcific tendinosis. Significant scoliosis with le ft lower lobe infiltrate and small pleural effusion. There are deformities involving the posterior si xth and seventh ribs. Report called to referring clinician at 12:30 PM 03/20/2021. IMPRESSION: 1. Findings suspicious for fracture involving the posterior left sixth and seventh ribs. Exam is some what limited. 2. Left lower lobe infiltrate and small effusion noted on the chest x-ray of 06/22/2020 correlate clin ically.
== END | disposition home or self-care (01) ==
LOC: RADXRMAIN 11:45
PROVIDERS: ATTEND Family Medicine
DX: J90 Pleural effusion, not elsewhere classified (principal); R91.8 Other nonspecific abnormal finding of lung field

== ENCOUNTER 2021-03-21 14:17 | Emergency (ER) | payer MEDICARE ==
[2021-03-21 14:31] VITALS: BP 136/73; PULSE 71; RESP 16; TEMP 98.1
[2021-03-21] MEDS ORDERED: RX INFO: IV CONTRAST WAS GIVEN 1 EACH MISC MISCELLANE PRN (14:48)
[2021-03-21] MEDS ORDERED: MORPHINE SULFATE 2 MG/ML SYRINGE IVP STA (15:12)
[2021-03-21] MEDS ORDERED: fentaNYL (PF) 50 MCG/ML 2 ML AMP IVP PRN (15:14)
[2021-03-21 15:19] LABS: Basophils # (A) 0.1 k/uL (0-0.2); Basophils % (A) 1 %; Eosinophils # (A) 0.2 k/uL (0-0.7); Eosinophils % (A) 3 %; HGB 13.5 gm/dL (11.4-16.0); Lymphocytes # (A) 1.3 k/uL (1.0-4.8); Lymphocytes % (A) 14 %; MCH 30.8 pg (25.0-35.0); MCHC 34.7 g/dL (31.0-37.0); MCV 88.7 fL (80.0-100.0); Mean Platelet Volume 8.4; Monocytes # (A) 0.6 k/uL (0-1.0); Monocytes % (A) 7 %; Neutrophils # (A) 6.8 k/uL (1.3-7.7); Neutrophils % (A) 75 %; Platelet Count 180 k/uL (150-450); RBC 4.39 m/uL (3.80-5.40); WBC 9.1 k/uL (3.8-10.6)
[2021-03-21 15:31] LABS: INR 0.9 (<1.2); Partial Thromboplastin Time 22.2 sec (22.0-30.0); Prothrombin Time 10.1 sec (9.0-12.0)
[2021-03-21 15:45] LABS: Albumin 4.1 g/dL (3.5-5.0); Calcium 9.7 mg/dL (8.4-10.2); Total Bilirubin 0.5 mg/dL (0.2-1.3)
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
--- NOTE | 2021-03-21 16:59 | CT ---
EXAMINATION TYPE: CT chest w con DATE OF EXAM: 03/21/2021 COMPARISON: Chest CT June 15, 2015. Left rib x-rays from yesterday. HISTORY: Fall 2 days ago. Left sided rib fractures. CT DLP: 217 mGycm. Automated Exposure Control for Dose Reduction was Utilized. TECHNIQUE: CT scan of the thorax is performed following with IV Contrast, patient injected with 80 m L of Isovue 300. FINDINGS: LUNGS: There is small to tiny left pleural effusion or fluid collection. There is associated compress doug atelectasis. There is mild bibasilar linear scarring and/or atelectasis MEDIASTINUM: There are no greater than 1 cm hilar or mediastinal lymph nodes. No pericardial effusi on is seen. Mild cardiomegaly. Enlarged right and left pulmonary arteries consistent with underlying pulmonary artery hypertension. Mild coronary artery calcification again seen. OTHER: Several old healed fractures of the posterior right mid ribs redemonstrated . No acute mildly displaced fractures of the left lateral sixth through eighth ribs with additional acu te nondisplaced fractures of the left lateral fifth and ninth ribs. Marked underlying scoliosis redemonstrated. IMPRESSION: New acute mildly displaced fractures left lateral sixth through eighth ribs. New acute no ndisplaced fractures left lateral fifth and ninth ribs. New small to tiny left pleural fluid collecti on or hemothorax. Mild associated compressive atelectasis. No pneumothorax is identified.
[2021-03-21] MEDS ORDERED: traMADol 50 MG STARTER PACK 3 TAB BTL PO STA (18:00)
== END 2021-03-21 18:48 | disposition home or self-care (01) ==
LOC: EC 14:17
DX: S22.42XA Multiple fractures of ribs, left side, initial encounter for closed fracture (principal); S27.1XXA Traumatic hemothorax, initial encounter; E78.5 Hyperlipidemia, unspecified; I10 Essential (primary) hypertension; I25.2 Old myocardial infarction; M17.0 Bilateral primary osteoarthritis of knee; Z90.710 Acquired absence of both cervix and uterus; Z90.09 Acquired absence of other part of head and neck; Z90.721 Acquired absence of ovaries, unilateral; Z90.79 Acquired absence of other genital organ(s); W01.0XXA Fall on same level from slipping, tripping and stumbling without subsequent striking against object, initial encounter
CPT/HCPCS: 36415; 93005; 80053; 83605; 85025; 85610; 85730; 71260; 99285; 96374; J3010; Q9967

== ENCOUNTER → 2021-08-02 | Outpatient (CLI) | payer MEDICARE ==
--- NOTE | 2021-08-05 10:36 | MM ---
Reason for exam: screening (asymptomatic). Last mammogram was performed 1 year ago. History: Patient is postmenopausal. Benign US biopsy breast VAD LT of the left breast, July 23, 2016. Benign excisional biopsy of the right breast, 1971. Took estrogen for 18 years beginning at age 58. Physical Findings: A clinical breast exam by your physician is recommended on an annual basis and results should be correlated with mammographic findings. MG 3D Screening Mammo W/Cad Bilateral CC and MLO view(s) were taken. Prior study comparison: July 31, 2020, bilateral MG 3d screening mammo w/cad. July 30, 2019, bilateral MG 3d screening mammo w/cad. The breast tissue is heterogeneously dense. This may lower the sensitivity of mammography. Dermal calcifications left breast. Focal asymmetry upper outer left breast zone B. This finding is changed when compared with previous exams. ASSESSMENT: Incomplete: need additional imaging evaluation, BI-RAD 0 RECOMMENDATION: Special view mammogram of the left breast. If lesion persists on supplemental views, image directed ultrasound is recommended. [facility] will attempt to contact patient to return for supplemental views and ultrasound if indicated.
== END | disposition home or self-care (01) ==
LOC: RADMAMWWP 12:44
PROVIDERS: ATTEND Obstetrics & Gynecology
DX: Z12.31 Encounter for screening mammogram for malignant neoplasm of breast (principal); Z78.0 Asymptomatic menopausal state; Z79.818 Long term (current) use of other agents affecting estrogen receptors and estrogen levels
CPT/HCPCS: 77063; 77067

== ENCOUNTER → 2021-08-27 | Outpatient (CLI) | payer MEDICARE ==
--- NOTE | 2021-08-28 08:12 | MM ---
Reason for exam: additional evaluation requested from abnormal screening. Last mammogram was performed 1 month ago. History: Patient is postmenopausal. Benign US biopsy breast VAD LT of the left breast, July 23, 2016. Benign excisional biopsy of the right breast, 1971. Took estrogen for 18 years beginning at age 58. Physical Findings: Nurse did not find any significant physical abnormalities on exam. MG 3D Work Up W/Cad LT Spot compression CC, spot compression MLO, and LM view(s) were taken of the left breast. Prior study comparison: August 02, 2021, bilateral MG 3d screening mammo w/cad. July 31, 2020, bilateral MG 3d screening mammo w/cad. The breast tissue is heterogeneously dense. This may lower the sensitivity of mammography. Finding: There is a 8-9 mm circumscribed oval mass located 6 cm from the nipple in the upper outer quadrant of the left breast persists on additional views. These results were verbally communicated with the patient and result sheet given to the patient on 08/27/21. ASSESSMENT: Incomplete: need additional imaging evaluation, BI-RAD 0 RECOMMENDATION: Ultrasound of the left breast.
--- NOTE | 2021-08-28 08:15 | USB ---
Reason for exam: additional evaluation requested from abnormal screening. History: Patient is postmenopausal. Benign US biopsy breast VAD LT of the left breast, July 23, 2016. Benign excisional biopsy of the right breast, 1971. Took estrogen for 18 years beginning at age 58. US Breast Limited LT Technologist: Precious Reynoso Left limited breast ultrasound including focal area of concern retroareolar level demonstrates a 0.7 x 1.0 x 0.6cm irregular, hypoechoic, avascular lesion at 1 o'clock. Solid lesion favored over non-simple cyst. These results were verbally communicated with the patient and result sheet given to the patient on 08/27/21. ASSESSMENT: Suspicious, BI-RAD 4 RECOMMENDATION: Ultrasound core biopsy of the left breast. (FNA +/- Core Biopsy) Called Dr. Unger's office with mammographic findings and has scheduled an appointment for the patient for 09/27/21 at 2:[address] Tolentino. Biopsy scheduled for 10/03/21 at 10:30. PRELIMINARY REPORT CALLED AND FAXED TO DR. TOLENTINO ON 08/27/21. [facility]
--- NOTE | 2021-08-28 14:51 | USB ---
Reason for exam: additional evaluation requested from abnormal screening. History: Patient is postmenopausal. Benign US biopsy breast VAD LT of the left breast, July 23, 2016. Benign excisional biopsy of the right breast, 1971. Took estrogen for 18 years beginning at age 58. US Breast Workup Limited LT Technologist: Precious Reynoso Left limited breast ultrasound including focal area of concern, retroareolar demonstrates a 0.7 x 1.0 x 0.6cm irregular, hypoechoic, avascular lesion at 1 o'clock. Solid lesion favored over non-simple cyst. These results were verbally communicated with the patient and result sheet given to the patient on 08/27/21. ASSESSMENT: Suspicious, BI-RAD 4 RECOMMENDATION: Ultrasound core biopsy of the left breast. (FNA +/- Core Biopsy) Called Dr. Unger's office with mammographic findings and has scheduled an appointment for the patient for 09/27/21 at 2:[address] Tolentino. Biopsy scheduled for 10/03/21 at 10:30. PRELIMINARY REPORT CALLED AND FAXED TO DR. TOLENTINO ON 08/27/21. [facility]
== END | disposition home or self-care (01) ==
LOC: RADMAMWWP 13:41
PROVIDERS: ATTEND Obstetrics & Gynecology
DX: N63.21 Unspecified lump in the left breast, upper outer quadrant (principal); N64.89 Other specified disorders of breast; Z78.0 Asymptomatic menopausal state
CPT/HCPCS: 77065; 76642; G0279; 77061

== ENCOUNTER → 2021-09-27 | Outpatient (CLI) | payer MEDICARE ==
[2021-09-27 14:37] VITALS: BP 131/67; PULSE 67; RESP 16; TEMP 98.2
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
== END ==
LOC: WWCWWP 14:13
PROVIDERS: ATTEND Surgery
DX: N60.12 Diffuse cystic mastopathy of left breast (principal); M40.209 Unspecified kyphosis, site unspecified; I25.2 Old myocardial infarction; L82.1 Other seborrheic keratosis; N61.0 Mastitis without abscess; I10 Essential (primary) hypertension; E78.5 Hyperlipidemia, unspecified; G40.909 Epilepsy, unspecified, not intractable, without status epilepticus; M17.0 Bilateral primary osteoarthritis of knee; Z79.82 Long term (current) use of aspirin; Z79.899 Other long term (current) drug therapy; Z88.1 Allergy status to other antibiotic agents; Z88.2 Allergy status to sulfonamides; Z91.018 Allergy to other foods; Z88.5 Allergy status to narcotic agent; Z88.6 Allergy status to analgesic agent; Z88.8 Allergy status to other drugs, medicaments and biological substances

== ENCOUNTER → 2021-11-29 | Outpatient (CLI) | payer MEDICARE ==
[2021-11-29 12:43] VITALS: BP 138/73; PULSE 61; RESP 16; TEMP 98.1
--- NOTE | 2021-11-29 13:13 | P.PN ---
Subjective Progress Note Date: 11/29/21 Principal diagnosis: DCIS Deloris is an 86-year-old white female seen in consultation for Dr. Unger regarding a mammographic abnormality in her left breast. She had a bilateral mammogram performed on . This was felt to be incomplete secondary to focal asymmetry in the upper quadrant of the left breast. An ultrasound was performed of this area which recently revealed a 1 x 0.7 cm irregular hypoechoic avascular lesion at the 1 o'clock position. Ultrasound-guided core biopsy was recommended. Patient does not complain of any lumps masses or nodules of concern in either breast. She is not complaining of any nipple discharge or skin changes. She is not complaining of any recent trauma or infection in the breast. 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 She tolerated the procedure without difficulty. Caffeine: tea 2 cups/day nicotine: none chocolate: occasional Family history: father: ? type form this Hormonal history: Menarche: 16 , breast fed: no, age at first : about 29 menopause: hysterectomy at about 46 did not take ovaries, done for prolapse Surgical History: hysterectomy intestine section removed cataract ovary removed 2009 Medical History: HTN Social History: nicotine: none alcohol: none drugs: none - Constitutional Constitutional: Denies chills, Denies fever - EENT Eyes: bilateral as per HPI, denies blurred vision, denies pain Ears: deny: decreased hearing, tinnitus Ears, nose, mouth and throat: Denies headache, Denies sore throat - Breasts Breasts: bilateral: as per HPI - Cardiovascular Comment: [place] 2019 Cardiovascular: Denies chest pain, Denies shortness of breath - Respiratory Respiratory: Denies cough - Gastrointestinal Gastrointestinal: Denies abdominal pain, Denies diarrhea, Denies nausea, Denies vomiting - Genitourinary (Female) Genitourinary: Denies dysuria, Denies hematuria - Menstruation Menstruation: Reports post hysterectomy - Musculoskeletal Comment: uses a walker one leg longer than the other Musculoskeletal: Denies myalgias - Integumentary Comment: stress induced hives Integumentary: Denies pruritus, Denies rash - Neurological Comment: history of seizure in 2001 Neurological: Denies numbness, Denies weakness - Psychiatric Psychiatric: Denies anxiety, Denies depression - Endocrine Endocrine: Denies fatigue, Denies weight change - Hematologic/Lymphatic Comment: none - Allergic/Immunologic Allergic/Immunologic: Reports as per HPI Objective - Vital Signs Vital signs: Vital Signs Temp 98.1 F 11/29/21 12:37 Pulse 61 11/29/21 12:37 Resp 16 11/29/21 12:37 BP 138/73 11/29/21 12:37 Pulse Ox Intake & Output 11/28/21 11/29/21 11/29/21 18:59 06:59 18:59 Weight 65.771 kg - Exam BMI 26.5 - Constitutional General appearance: Present: cooperative - EENT Eyes: Present: EOMI ENT: Present: hearing grossly normal - Neck Neck: Present: normal ROM - Respiratory Respiratory: bilateral: CTA - Cardiovascular Heart sounds: normal: S1, S2 - Integumentary Integumentary Comment(s): Ecchymosis at biopsy site on left breast/small hematoma - Musculoskeletal Musculoskeletal Comment(s): uses a walker - Psychiatric Psychiatric: Present: A&O x's 3, appropriate affect, intact judgment & insight - Additional findings Additional findings: Breast Exam: Breast biopsy site mild ecchymosis, small hematoma or evidence of infection Plan: Large Palpation: }: Multiple positional exam fibrocystic changes no dominant masses or nodules of concern Right axilla: No adenopathy of concern Left breast: Patient with changes from recent biopsy ecchymosis/small hematoma no other masses or nodules of concern Left axilla: No adenopathy of concern Bilateral fungal infection noted initially under each breast much improved Assessment and Plan Assessment: Impression: Abnormal left breast mammogram and ultrasound status post core biopsy DCIS Fibrocystic breast changes Kyphosis Prior history of myocardial infarction Seborrheic keratosis inferior aspect left breast Fungal infection improved under both breasts Plan: Local excisional lumpectomy left breast area of DCIS Presentation of case at tumor board Medical clearance CC: Dr. Unger, Dr. Anderson
== END ==
LOC: WWCWWP 12:17
PROVIDERS: ATTEND Surgery
DX: N60.12 Diffuse cystic mastopathy of left breast (principal); D05.92 Unspecified type of carcinoma in situ of left breast; M40.209 Unspecified kyphosis, site unspecified; I25.2 Old myocardial infarction; L82.1 Other seborrheic keratosis; I10 Essential (primary) hypertension; Z88.1 Allergy status to other antibiotic agents; Z88.8 Allergy status to other drugs, medicaments and biological substances; Z88.5 Allergy status to narcotic agent; Z91.018 Allergy to other foods; Z88.2 Allergy status to sulfonamides

== ENCOUNTER → 2022-01-10 | Outpatient (CLI) | payer MEDICARE ==
[2022-01-10 11:29] VITALS: BP 162/94; PULSE 59; RESP 18; TEMP 97.8
--- NOTE | 2022-01-10 11:49 | P.PN ---
Subjective Progress Note Date: 01/10/22 Principal diagnosis: DCIS left breast Subjective Progress Note Date: 11/29/21 Principal diagnosis: DCIS Deloris is an 86-year-old white female seen in consultation for Dr. Unger regarding a mammographic abnormality in her left breast. She had a bilateral mammogram performed on . This was felt to be incomplete secondary to focal asymmetry in the upper quadrant of the left breast. An ultrasound was p erformed of this area which recently revealed a 1 x 0.7 cm irregular hypoechoic avascular lesion at the 1 o'clock position. Ultrasound-guided core biopsy was recommended. Patient does not complain of any lumps masses or nodules of concern in either breast. She is not complaining of any nipple discharge or skin changes. She is not complaining of any recent trauma or infection in the breast. An ultrasound core biopsy was done on 11-13-21 which was low grade DCIS, ER+, [place]+. She tolerated the procedure without difficulty. Her case was presented at [facility] and recommendation was made for a left breast needle localization and lumpectomy. The patient is aware and would like this to be done. Caffeine: tea 2 cups/day nicotine: none chocolate: occasional Family history: father: ? type form this Hormonal history: Menarche: 16 , breast fed: no, age at first : about 29 menopause: hysterectomy at about 46 did not take ovaries, done for prolapse Surgical History: hysterectomy intestine section removed cataract ovary removed 2009 Medical History: HTN Social History: nicotine: none alcohol: none drugs: none - Constitutional Constitutional: Denies chills, Denies fever - EENT Eyes: bilateral as per HPI, denies blurred vision, denies pain Ears: deny: decreased hearing, tinnitus Ears, nose, mouth and throat: Denies headache, Denies sore throat - Breasts Breasts: bilateral: as per HPI - Cardiovascular Comment: [place] 2019 Cardiovascular: Denies chest pain, Denies shortness of breath - Respiratory Respiratory: Denies cough - Gastrointestinal Gastrointestinal: Denies abdominal pain, Denies diarrhea, Denies nausea, Denies vomiting - Genitourinary (Female) Genitourinary: Denies dysuria, Denies hematuria - Menstruation Menstruation: Reports post hysterectomy - Musculoskeletal Comment: uses a walker one leg longer than the other Musculoskeletal: Denies myalgias - Integumentary Comment: stress induced hives Integumentary: Denies pruritus, Denies rash - Neurological Comment: history of seizure in 2002 Neurological: Denies numbness, Denies weakness - Psychiatric Psychiatric: Denies anxiety, Denies depression - Endocrine Endocrine: Denies fatigue, Denies weight change - Hematologic/Lymphatic Comment: none - Allergic/Immunologic Allergic/Immunologic: Reports as per HPI Objective - Vital Signs Vital signs: Vital Signs Temp 97.8 F 01/10/22 11:25 Pulse 59 L 01/10/22 11:25 Resp 18 01/10/22 11:25 BP 162/94 01/10/22 11:25 Pulse Ox 94 L 01/10/22 11:25 Intake & Output 01/09/22 01/10/22 01/10/22 18:59 06:59 18:59 Weight 67.132 kg - Exam BMI 27.1 - Constitutional General appearance: Present: cooperative - EENT Eyes: Present: EOMI ENT: Present: hearing grossly normal - Neck Neck: Present: normal ROM - Respiratory Respiratory: bilateral: CTA - Cardiovascular Heart sounds: normal: S1, S2 - Gastrointestinal General gastrointestinal: Present: soft - Integumentary Integumentary: Present: normal turgor - Musculoskeletal Musculoskeletal Comment(s): uses a walker - Psychiatric Psychiatric: Present: A&O x's 3, appropriate affect, intact judgment & insight - Additional findings Additional findings: Breast Exam: BRA: 34C/B inspection: Well-healed scar right breast, bilateral grade 3 ptosis Palpation: Right breast: Multi-positional exam fibrocystic changes no dominant masses or nodules of concern Right axilla: No adenopathy of concern Left breast: Multi-positional exam fibrocystic changes no dominant mass or nodule is of concern No evidence of ecchymosis, hematoma or masses Left axilla: No adenopathy of concern Assessment and Plan Assessment: Impression: Abnormal left breast mammogram and ultrasound status post core biopsy revealing DCIS Fibrocystic breast changes Kyphosis Prior history of myocardial infarction Seborrheic keratosis inferior aspect left breast Plan: Needle localization left breast excisional lumpectomy area of DCIS Case presented at tumor board Medical clearance from Dr. Anderson Cc: Dr. Unger, Dr. Andesron
== END ==
LOC: WWCWWP 11:07
PROVIDERS: ATTEND Surgery
DX: R92.8 Other abnormal and inconclusive findings on diagnostic imaging of breast (principal); D05.12 Intraductal carcinoma in situ of left breast; N60.11 Diffuse cystic mastopathy of right breast; N60.12 Diffuse cystic mastopathy of left breast; M40.209 Unspecified kyphosis, site unspecified; I25.2 Old myocardial infarction; L82.1 Other seborrheic keratosis; Z17.0 Estrogen receptor positive status [ER+]; I10 Essential (primary) hypertension; Z88.1 Allergy status to other antibiotic agents; Z88.2 Allergy status to sulfonamides; Z91.018 Allergy to other foods; Z88.8 Allergy status to other drugs, medicaments and biological substances

== ENCOUNTER 2022-01-21 09:10 | Day surgery (SDC) | payer MEDICARE ==
[2022-01-20 12:09] VITALS: BMI 26.5
[~2022-01-21 09:10] MED LIST changes: +HEPARIN SODIUM,PORCINE/PF 5,000 UNIT/0.5 ML SYRINGE SQ PRN; +HYDROmorphone 0.5 MG/0.5 ML SYRINGE IVP PRN; -LIDOCAINE 1% 20 ML VIAL (10MG/ML) FOR IV START INTRADERMA PRN; +ONDANSETRON 4 MG/2 ML VIAL IVP ONE; +Pre Op ABX Message 1 EACH MISC MISCELLANE ONE
[2022-01-21] MEDS ORDERED: ALPRAZolam 0.25 MG TAB ONE (10:25)
[2022-01-21] MEDS ORDERED: LIDOCAINE 1% INJ 10MG/ML (20 ML MDV) SQ ONE (11:12)
--- NOTE | 2022-01-21 11:50 | P.NAPBC ---
NAPBC Queries - NAPBC Queries Was patient's case review presented at [facility] tumor board? If no, comment.: Yes Was patient's pathology reviewed at [facility]? If no, comment.: Yes Was breast conservation surgery offered? If no, comment.: Yes Was sentinel node biopsy offered? If no, comment.: No (86 and DCIS) Was diagnosis confirmed by percutaneous core biopsy? If no, comment.: Yes Is patient mastectomy patient?: No Clinical Stage: Stage 0
[2022-01-21] MEDS ORDERED: LIDOCAINE 1% INJ 10MG/ML (20 ML MDV) ONE (12:18)
[2022-01-21] MEDS ORDERED: SUCCINYLCHOLINE CHLORIDE 100 MG/5 ML SYR IV ONE (12:18)
[2022-01-21] MEDS ORDERED: ePHEDrine 50 MG/ML 1 ML VIAL ONE (12:18)
[2022-01-21] MEDS ORDERED: fentaNYL (PF) 50 MCG/ML 2 ML AMP ONE (12:18)
[2022-01-21] MEDS ORDERED: PROPOFOL 10 MG/ML 20 ML VIAL IV ONE (12:18)
[2022-01-21] MEDS ORDERED: LIDOCAINE (PF) 10 MG/ML 2 ML VIAL SQ ONE ×2 (13:00→13:28)
--- NOTE | 2022-01-21 13:29 | P.OP ---
Date of Procedure: 01/21/22 Preoperative Diagnosis: DCIS left breast Postoperative Diagnosis: Same Procedure(s) Performed: [place] Localization excisional lumpectomy left breast Anesthesia: GETA Surgeon: Jaclyn Tolentino Estimated Blood Loss (ml): 5 IV fluids (ml): 400 Pathology: other (breast tissue) Condition: stable Disposition: same day Indications for Procedure: Core Biopsy left breast ductal carcinoma in situ Operative Findings: Fibrofatty breast tissue Description of Procedure: Deloris is an 86-year-old white female who was diagnosed with ductal carcinoma in situ of the left breast. After discussin she opted for a needle localization and excisional lumpectomy. Following needle localization of the area of concern in the left breast the patient was brought to the operative suite. Following induction of anesthesia the left breast was prepped and draped in a sterile fashion. An incision was made near the shaft of the needle. This was carried down to the hook of the needle and surrounding tissue was excised. Additional superior tissue was removed. The specimen was painted for orientation. This was sent to radiology and confirmation that the area of concern about removed was obtained. Following this the wound was well irrigated. Titanium clips were placed. The deep tissues were closed using 3-0 Vicryl suture. The skin was closed using 3-0 Vicryl subcutaneous suture and a 4-0 Monocryl. Steri-Strips were applied. The patient tolerated the procedure in stable condition. Addendum: Posterior dissection was performed onto the pectoralis muscle and anteriorly dissection was directly under the skin.
[2022-01-21 13:59] VITALS: TEMP 97.1
--- NOTE | 2022-01-21 14:34 | USB ---
EXAM: Needle localization with wire placement. 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 Diagnostic left breast mammogram after needle localization prior to surger y. COMPARISON: Prior ultrasound and mammogram November 13, 2021 and older studies. FINDINGS: The procedure of needle localization with wire placement and than surgical excision was exp lained to the patient. Benefits, alternatives, and risks were discussed. An informed consent was th en obtained. Small lesion with biopsy clip 1:00 position zone BC left breast is redemonstrated corresponding to pr ior study. The overlying skin was prepped and draped in usual sterile fashion. Lidocaine is used as a nesthetic into the skin and subcutaneous tissue up to the level of area of concern. A 5 cm needle wa s used. It was placed via ultrasound guidance. At this point, wire was placed and the needle was wi thdrawn. The wire was fixed to patient's skin. Post procedure mammogram performed shows satisfactory positioning of wire relative to targeted clip. Images were marked for surgeon. The patient tolerated the procedure well without any immediate complication. The patient was kept in the radiology department for short stay after the procedure and then taken to surgery for surgical e xcision. Targeted clip and wire are identified in specimen mammogram. The patient was kept in hospit al for short stay after the procedure and then discharged home in stable condition. IMPRESSION: Successful, uncomplicated needle localization with wire placement and surgical excision o f targeted clip in the left breast, full pathology results to follow.
[2022-01-21 15:25] VITALS: PULSE 73; RESP 16
[2022-01-21 15:30] VITALS: BP 159/73
== END 2022-01-21 16:28 | disposition home or self-care (01) ==
LOC: OR 09:10
PROVIDERS: ATTEND Surgery
DX: D05.12 Intraductal carcinoma in situ of left breast (principal); I25.2 Old myocardial infarction; E78.5 Hyperlipidemia, unspecified; I10 Essential (primary) hypertension; G40.909 Epilepsy, unspecified, not intractable, without status epilepticus
CPT/HCPCS: 19285; 77065; 76098; J2001 ×2; J2405; J3010; J0330; J2704; J1644

== ENCOUNTER → 2022-01-29 | Outpatient (CLI) | payer MEDICARE ==
--- NOTE | 2022-01-29 13:44 | P.PN ---
Progress Note - Text Progress Note Date: 01/29/22 Deloris is an 86 year old white female status post left breast lumpectomy on 01-21-22. Pathology revealed a 5 mm focus of ductal carcinoma in situ all margins negative. She tolerated the procedure without difficulty. The lesion is ER/MI positive and we have discussed hormone therapy she will f ollow with medical oncology. We have discussed radiation therapy at this time she has declined. Physical exam: Incision: Clean and dry Lungs: Clear Heart: Regular rate and rhythm Impression: DCIS completely resected left breast Plan: Follow-up medical oncology Follow-up here in 4 months CC: Dr. Anderson
[2022-01-29 14:10] VITALS: BP 163/73; PULSE 78; RESP 18; TEMP 99.2
== END ==
LOC: WWCWWP 12:56
PROVIDERS: ATTEND Surgery
DX: D05.12 Intraductal carcinoma in situ of left breast (principal); Z17.0 Estrogen receptor positive status [ER+]; Z98.890 Other specified postprocedural states; Z88.1 Allergy status to other antibiotic agents; Z88.8 Allergy status to other drugs, medicaments and biological substances; Z88.5 Allergy status to narcotic agent; Z91.018 Allergy to other foods; Z88.2 Allergy status to sulfonamides

== ENCOUNTER → 2022-06-06 | Outpatient (CLI) | payer MEDICARE ==
[2022-06-06 11:07] VITALS: BP 147/81; PULSE 63; RESP 16; TEMP 98.2
--- NOTE | 2022-06-06 11:33 | P.PN ---
Subjective Progress Note Date: 06/06/22 Principal diagnosis: DCIS left breast DCIS Deloris is an 86-year-old white female seen in consultation for Dr. Unger regarding a mammographic abnormality in her left breast. She had a bilateral mammogram performed on . This was felt to be incomplete secondary to focal asymmetry in the upper quadrant of the left breast. An ultrasound was performed of this area which recently revealed a 1 x 0.7 cm irregular hypoechoic avascular lesion at the 1 o'clock position. Ultrasound-guided core biopsy was recommended. Patient does not complain of any lumps masses or nodules of concern in either breast. She is not complaining of any nipple discharge or skin changes. She is not complaining of any recent trauma or infection in the breast. An ultrasound core biopsy was done on 11-13-21 which was low grade DCIS, ER+, TN+. She tolerated the procedure without difficulty. [facility] and recommendation was made for a left breast needle localization and lumpectomy. The patient is aware and would like this to be done. The patient underwent a needle localization left breast lumpectomy and 312. 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 She tolerated the procedure without difficulty. The lesion was ER/TN positive she is not taking any anti hormone therapy at this time. She declined radiatioin therapy. Caffeine: tea 2 cups/day nicotine: none chocolate: occasional Family history: father: ? type form this Hormonal history: Menarche: 16 , breast fed: no, age at first : about 29 menopause: hysterectomy at about 46 did not take ovaries, done for prolapse Surgical History: hysterectomy intestine section removed cataract ovary removed 2010 left breast lumpectomy Medical History: HTN Social History: nicotine: none alcohol: none drugs: none - Constitutional Constitutional: Denies chills, Denies fever - EENT Eyes: bilateral as per HPI, denies blurred vision, denies pain Ears: deny: decreased hearing, tinnitus Ears, nose, mouth and throat: Denies headache, Denies sore throat - Breasts Breasts: bilateral: as per HPI - Cardiovascular Comment: [place] 2019 Cardiovascular: Denies chest pain, Denies shortness of breath - Respiratory Respiratory: Denies cough - Gastrointestinal Gastrointestinal: Denies abdominal pain, Denies diarrhea, Denies nausea, Denies vomiting - Genitourinary (Female) Genitourinary: Denies dysuria, Denies hematuria - Menstruation Menstruation: Reports post hysterectomy - Musculoskeletal Comment: uses a walker one leg longer than the other Musculoskeletal: Denies myalgias - Integumentary Comment: stress induced hives Integumentary: Denies pruritus, Denies rash - Neurological Comment: history of seizure in 2001 Neurological: Denies numbness, Denies weakness - Psychiatric Psychiatric: Denies anxiety, Denies depression - Endocrine Endocrine: Denies fatigue, Denies weight change - Hematologic/Lymphatic Comment: none - Allergic/Immunologic Allergic/Immunologic: Reports as per HPI Objective - Vital Signs Vital signs: Vital Signs Temp 98.2 F 06/06/22 11:03 Pulse 63 06/06/22 11:03 Resp 16 06/06/22 11:03 BP 147/81 06/06/22 11:03 Pulse Ox 95 06/06/22 11:03 FiO2 Intake & Output 06/05/22 06/06/22 06/06/22 18:59 06:59 18:59 Weight 140 kg - Constitutional General appearance: Present: cooperative - EENT Eyes: Present: EOMI - Neck Neck: Present: normal ROM - Respiratory Respiratory: bilateral: CTA - Cardiovascular Rhythm: regular Heart sounds: normal: S1, S2 - Integumentary Integumentary: Present: normal turgor - Psychiatric Psychiatric: Present: A&O x's 3, appropriate affect, intact judgment & insight - Additional findings Additional findings: Breast Exam: BRA: 38C inspection: bilateral grade 3 ptosis, fungal infection greater and her right breast, Bilateral well-healed scars Palpation: Right breast: Multi-positional exam fibrocystic changes no dominant masses or nodules of concern well-healed scar from prior surgery Right axilla: No adenopathy of concern Left breast: Multi-positional exam fibrocystic changes no dominant masses or nodules of concern Left axilla: No adenopathy of concern Assessment and Plan Assessment: Impression: Patient status 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 Anderson
== END ==
LOC: WWCWWP 10:52
PROVIDERS: ATTEND Surgery
DX: Z08 Encounter for follow-up examination after completed treatment for malignant neoplasm (principal); Z85.3 Personal history of malignant neoplasm of breast; I10 Essential (primary) hypertension; Z88.1 Allergy status to other antibiotic agents; Z91.018 Allergy to other foods; Z88.5 Allergy status to narcotic agent; Z88.2 Allergy status to sulfonamides; Z88.8 Allergy status to other drugs, medicaments and biological substances

== ENCOUNTER → 2022-08-07 | Outpatient (CLI) | payer MEDICARE ==
[2022-08-07 13:11] VITALS: BP 147/75; PULSE 65; RESP 18
--- NOTE | 2022-08-07 14:08 | P.PN ---
Subjective Progress Note Date: 08/07/22 Principal diagnosis: DCIS left breast DCIS Deloris is an 86-year-old white female seen in consultation for Dr. Unger regarding a mammographic abnormality in her left breast. She had a bilateral mammogram performed on . This was felt to be incomplete secondary to focal asymmetry in the upper quadrant of the left breast. An ultrasound was performed of this area which recently revealed a 1 x 0.7 cm irregular hypoechoic avascular lesion at the 1 o'clock position. Ultrasound-guided core biopsy was recommended. Patient does not complain of any lumps masses or nodules of concern in either breast. She is not complaining of any nipple discharge or skin changes. She is not complaining of any recent trauma or infection in the breast. An ultrasound core biopsy was done on 11-13-21 which was low grade DCIS, ER+, NM+. She tolerated the procedure without difficulty. Her case was presented at [facility] and recommendation was made for a left breast needle localization and lumpectomy. The patient is aware and would like this to be done. The patient underwent a needle localization left breast lumpectomy and 3121. 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 She tolerated the procedure without difficulty. The lesion was ER/NM positive she is not taking any anti hormone therapy at this time. She declined radiatioin therapy. note from DR. Bautista Lopez 06-16-22 noted; patient is not taking any hormone blockers at this time She had a bilateral mammogram on 08-07-22 this was reviewed with Dr. Iris NAILS 2 Caffeine: tea 2 cups/day nicotine: none chocolate: occasional Family history: father: ? type form this Hormonal history: Menarche: 16 , breast fed: no, age at first : about 29 menopause: hysterectomy at about 46 did not take ovaries, done for prolapse Surgical History: hysterectomy intestine section removed cataract ovary removed 2010 left breast lumpectomy Medical History: HTN Social History: nicotine: none alcohol: none drugs: none - Constitutional Constitutional: Denies chills, Denies fever - EENT Eyes: bilateral as per HPI, denies blurred vision, denies pain Ears: deny: decreased hearing, tinnitus Ears, nose, mouth and throat: Denies headache, Denies sore throat - Breasts Breasts: bilateral: as per HPI - Cardiovascular Comment: [place] 2019 Cardiovascular: Denies chest pain, Denies shortness of breath - Respiratory Respiratory: Denies cough - Gastrointestinal Gastrointestinal: Denies abdominal pain, Denies diarrhea, Denies nausea, Denies vomiting - Genitourinary (Female) Genitourinary: Denies dysuria, Denies hematuria - Menstruation Menstruation: Reports post hysterectomy - Musculoskeletal Comment: uses a walker one leg longer than the other Musculoskeletal: Denies myalgias - Integumentary Comment: stress induced hives Integumentary: Denies pruritus, Denies rash - Neurological Comment: history of seizure in 2001 Neurological: Denies numbness, Denies weakness - Psychiatric Psychiatric: Denies anxiety, Denies depression - Endocrine Endocrine: Denies fatigue, Denies weight change - Hematologic/Lymphatic Comment: none - Allergic/Immunologic Allergic/Immunologic: Reports as per HPI Objective - Vital Signs Vital signs: Vital Signs Temp Pulse 65 08/07/22 13:08 Resp 18 08/07/22 13:08 BP 147/75 08/07/22 13:08 Pulse Ox 96 08/07/22 13:08 FiO2 - Constitutional General appearance: Present: cooperative - EENT Eyes: Present: EOMI - Neck Neck: Present: normal ROM - Respiratory Respiratory: bilateral: CTA - Cardiovascular Rhythm: regular Heart sounds: normal: S1, S2 - Integumentary Integumentary: Present: normal turgor - Musculoskeletal Musculoskeletal Comment(s): uses a walker - Psychiatric Psychiatric: Present: A&O x's 3, appropriate affect, intact judgment & insight - Additional findings Additional findings: Breast Exam: BRA: not know size; probably medium sports bra Inspection: Bilateral rest scars from prior biopsy right and lumpectomy left Palpation: Right breast: fibrocystic changes, no dominant masses or nodules of concern Right axilla: No adenopathy of concern Left breast: Fibrocystic changes, no dominant masses or nodules of concern Left axilla: No adenopathy of concern Assessment and Plan Assessment: Impression: Left breast DCIS status post lumpectomy, patient did not have radiation or h ormonal therapy; this is margin posteriorly which was 1 cm but dissection was carried onto the pectoralis muscle Plan: Close surveillance Bilateral mammogram 1 year Follow-up here in 4 months for examination CC: DR. Anderson
--- NOTE | 2022-08-08 10:49 | MM ---
Reason for Exam: Follow-up at short interval from prior study. Last screening mammogram was performed 12 month(s) ago. Patient History: Menarche at age 14. First Full-Term at age 30. Left ovary removed at age 78. Hysterectomy at age 43. Postmenopausal. Breast cancer, age 86. Estrogen for 18 years from age 58 until age 76. 1972, Benign Excisional Biopsy on the right side. 01/21/2022, Lumpectomy on the Left side. Malignant Core Biopsy. 11/13/2021, Malignant Core Biopsy on the left side. 07/23/2016, Benign Core Biopsy on the left side. Tissue Density: The breast tissue is heterogeneously dense. This may lower the sensitivity of mammography. Findings: Analyzed By CAD. New surgical clips in the upper outer aspect left breast. Mammotome biopsy clip left breast anteriorly redemonstrated. No suspicious new mass or distortion in either breast. Overall Assessment: Benign, BI-RAD 2 Management: Diagnostic Mammogram of both breasts in 1 year. A clinical breast exam by your physician is recommended on an annual basis and results should be correlated with mammographic findings. This exam should not preclude additional follow-up of suspicious palpable abnormalities. Results were given to the patient verbally at the time of exam. Electronically signed and approved by: Ruddy Simmons M.D.
== END ==
LOC: WWCWWP 11:53
PROVIDERS: ATTEND Surgery
DX: Z85.3 Personal history of malignant neoplasm of breast (principal); D05.12 Intraductal carcinoma in situ of left breast; Z17.0 Estrogen receptor positive status [ER+]; I10 Essential (primary) hypertension; Z88.1 Allergy status to other antibiotic agents; Z88.8 Allergy status to other drugs, medicaments and biological substances; Z88.5 Allergy status to narcotic agent; Z91.018 Allergy to other foods; Z88.2 Allergy status to sulfonamides
CPT/HCPCS: 77066; G0279; 77062

== ENCOUNTER 2023-02-12 10:57 | Emergency (ER) | payer MEDICARE ==
[2023-02-12 11:49] VITALS: BP 126/58; PULSE 55; RESP 18; TEMP 98.4
--- NOTE | 2023-02-12 12:29 | XR ---
EXAMINATION TYPE: XR wrist complete RT DATE OF EXAM: 02/12/2023 CLINICAL HISTORY: Pain after fall injury. TECHNIQUE: Frontal, lateral, scaphoid, and oblique images of the right wrist are obtained. COMPARISON: None FINDINGS: Osseous structures are demineralized which is noted to lower radiographic sensitivity. The re is no acute fracture/dislocation evident in the right wrist. Calcification of the triangular fibro cartilage complex is seen. There is severe narrowing with joint space sclerosis at the base of the fi rst metacarpal. There is moderate to severe triscaphe degenerative change. The overlying soft tissue appears unremarkable. IMPRESSION: There is no acute fracture or dislocation in the right wrist.
--- NOTE | 2023-02-12 12:59 | ED ---
General Adult HPI - General Chief complaint: Fall Stated complaint: Fall, Wrist Injury Time Seen by Provider: 02/12/23 11:53 Source: patient, RN notes reviewed Mode of arrival: wheelchair Limitations: no limitations - History of Present Illness Initial comments: 87-year-old female with a past medical history significant for who presents to the emergency Department chief complaint of right wrist pain. Patient reports that she was looking down her laundry shoewear she felt a slight episode of dizziness last night which caused her to grab the railing. She reports that she lost her balance while still holding onto the rail and twisted her right wrist. She is complaining of some pain and tenderness to her right wrist with movement. She has not taken anything for his symptoms. She denies hitting her head, any loss of consciousness, anticoagulant use. She denies any numbness, tingling, weakness to the area. She is not currently complaining of any dizziness, lightheadedness at this time - Related Data Home Medications Medication Instructions Recorded Confirmed Aspirin EC [Ecotrin Low Dose] 81 mg PO DAILY@1200 06/10/15 02/12/23 Multivitamins, Thera [Multivitamin 1 tab PO DAILY@1200 06/10/15 02/12/23 (formulary)] Ascorbic Acid [Vitamin C] 500 mg PO HS 06/11/15 02/12/23 Phenytoin [Dilantin Chew] 150 mg PO Q48H 03/30/19 02/12/23 amLODIPine [Norvasc] 10 mg PO DAILY 04/09/19 02/12/23 Acetaminophen Tab [Tylenol] 325 mg PO Q6H PRN 10/04/19 02/12/23 Atorvastatin [Lipitor] 20 mg PO HS 10/04/19 02/12/23 Losartan Potassium [Cozaar] 12.5 mg PO DAILY 10/04/19 02/12/23 Phenytoin Chew [Dilantin Chew] 125 mg PO 1200 01/20/22 02/12/23 Phenytoin Chew [Dilantin Chew] 200 mg PO HS 01/20/22 02/12/23 Triamterene/Hydrochlorothiazid 1 each PO DAILY 01/20/22 02/12/23 [Triamterene-Hctz 37.5-25 mg Tb] Allergies Allergy/AdvReac Type Severity Reaction Status Date / Time levofloxacin [From Levaquin] Allergy Severe Anaphylaxis Verified 02/12/23 11:50 /seizure cephalexin Allergy Dyspnea Verified 02/12/23 11:50 clindamycin Allergy Dyspnea Verified 02/12/23 11:50 moxifloxacin HCl AdvReac Intermediate infection Verified 02/12/23 11:50 [From Vigamox] worse azithromycin AdvReac made Verified 02/12/23 11:50 infection worse. cetirizine HCl AdvReac sore Verified 02/12/23 11:50 [From Zyrtec-D] throat, upset stomach codeine phosphate AdvReac Rash/Hives Verified 02/12/23 11:50 [From Tylenol-Codeine #3] fexofenadine HCl AdvReac Itching Verified 02/12/23 11:50 [From Cori-D] fluocinolone acetonide AdvReac Itching Verified 02/12/23 11:50 neomycin AdvReac itching in Verified 02/12/23 11:50 ears ofloxacin AdvReac Itching in Verified 02/12/23 11:50 ears propoxyphene AdvReac rash,consti Verified 02/12/23 11:50 [From Darvocet-N 100] pation pseudoephedrine HCl AdvReac Itching Verified 02/12/23 11:50 [From Cori-D] strawberry AdvReac Rash/Hives Verified 02/12/23 11:50 sulfamethoxazole AdvReac Itching Verified 02/12/23 11:50 tramadol AdvReac CONSTIPATIO Verified 02/12/23 11:50 N RAW TOMATOES AdvReac Rash/Hives Uncoded 02/12/23 11:50 Review of Systems ROS Statement: Those systems with pertinent positive or pertinent negative responses have been documented in the HPI. ROS Other: All systems not noted in ROS Statement are negative. Past Medical History Past Medical History: Hyperlipidemia, Hypertension, Myocardial Infarction ([place]), Osteoarthritis (OA), Seizure Disorder Additional Past Medical History / Comment(s): Other hx: , abdnormal heart beat- PACs, seizure associated with anesthesia given for childbirth in the 1960s and a seizure in 2011 pt states was attributed to medication reaction in 2011, blood clot L side on top of skull age 16 yrs with surgery (struck by a rock), diverticulitis with bowel resection, benign colon polyps, bilateral tinnitis, arthritis bilateral knees. Last Myocardial Infarction Date:: ?2019 History of Any Multi-Drug Resistant Organisms: None Reported Past Surgical History: Bowel Resection, Heart Catheterization, Hysterectomy, Orthopedic Surgery, Tonsillectomy Additional Past Surgical History / Comment(s): 05/22/20 cardiac cath-treat [facility] Dionne hunter thigh femur fracture with nailing, D&C, R oophorectomy/salpingectomy d/t cysts, 2000 bowel resection d/t diverticulitis, D&C, laparotomy with R oophorectomy/salpingectomy d/t cyst, bilateral cataracts removed, colonoscopy/benign polypectomy, blood clot removed from scalp when pt was 16 yrs old. Past Anesthesia/Blood Transfusion Reactions: Previous Problems w/ Anesthesia, Motion Sickness Additional Past Anesthesia/Blood Transfusion Reaction / Comment(s): Seizure when they tried to put under for child , no hx blood transfusion Past Psychological History: No Psychological Hx Reported Smoking Status: Never smoker Past Alcohol Use History: None Reported Past Drug Use History: None Reported - Past Family History Father Family Medical History: Cancer Additional Family Medical History / Comment(s): Cancer "all over" Mother Family Medical History: No Reported History Additional Family Medical History / Comment(s): Mother was a smoker. General Exam Limitations: no limitations General appearance: alert, in no apparent distress Head exam: Present: atraumatic, normocephalic, normal inspection Eye exam: Present: normal appearance, PERRL, EOMI. Absent: scleral icterus, conjunctival injection, periorbital swelling ENT exam: Present: normal exam, mucous membranes moist Neck exam: Present: normal inspection. Absent: tenderness, meningismus, lymphadenopathy Respiratory exam: Present: normal lung sounds bilaterally. Absent: respiratory distress, wheezes, rales, rhonchi, stridor Cardiovascular Exam: Present: regular rate, normal rhythm, normal heart sounds. Absent: systolic murmur, diastolic murmur, rubs, gallop, clicks GI/Abdominal exam: Present: soft, normal bowel sounds. Absent: distended, tenderness, guarding, rebound, rigid Extremities exam: Present: normal inspection, full ROM, normal capillary refill. Absent: tenderness, pedal edema, joint swelling, calf tenderness Right Forearm Wrist exam: Present: normal inspection, full ROM, tenderness (mild tenderness ), other (2+ radial pulses, distal NVI ) Back exam: Present: normal inspection Neurological exam: Present: alert, oriented X3, CN II-XII intact Psychiatric exam: Present: normal affect, normal mood Skin exam: Present: warm, dry, intact, normal color. Absent: rash Course Vital Signs 02/12/23 11:46 Temperature 98.4 F Pulse Rate 55 L Respiratory 18 Rate Blood Pressure 126/58 O2 Sat by Pulse 99 Oximetry Medical Decision Making - Medical Decision Making Was pt. sent in by a medical professional or institution (, [facility]ESSICA, [employer], urgent care, hospital, or long term...) When possible be specific @ -[No] Did you speak to anyone other than the patient for history (EMS, parent, family, police, friend...)? What history was obtained from this source @ -[No] Did you review nursing and triage notes (agree or disagree)? Why? @ -[I reviewed and agree with nursing and triage notes] Were old charts reviewed (outside hosp., previous admission, EMS record, old EKG, old radiological studies, urgent care reports/EKG's, long term records)? Report findings @ -[No old charts were reviewed] Differential Diagnosis (chest pain, altered mental status, abdominal pain women, abdominal pain men, vaginal bleeding, weakness, fever, dyspnea, syncope, headache, dizziness, GI bleed, back pain, seizure, CVA, palpatations, mental health, musculoskeletal)? @ -[not applicable] EKG interpreted by me (3pts min.). @ -[As above] X-rays interpreted by me (1pt min.). @ -X-ray negative for any acute fracture CT interpreted by me (1pt min.). @ -[None done] U/S interpreted by me (1pt. min.). @ -[None done] What testing was considered but not performed or refused? (CT, X-rays, U/S, labs)? Why? @ -[None] What meds were considered but not given or refused? Why? @ -[None] Did you discuss the management of the patient with other professionals (professionals i.e. JESSICA Hicks, [employer], lab, RT, psych nurse, social work assistant, sr. payroll processor, teacher, customs and immigration officer, medical case manager)? Give summary @ -[No] Was smoking cessation discussed for >3mins.? @ -[No] Was critical care preformed (if so, how long)? @ -[No] Were there social determinants of health that impacted care today? How? (Homelessness, low income, unemployed, alcoholism, drug addiction, transportation, low edu. Level, literacy, decrease access to med. care, skilled nursing, rehab)? @ -[No] Was there de-escalation of care discussed even if they declined (Discuss DNR or withdrawal of care, Hospice)? DNR status @ -[No] What co-morbidities impacted this encounter? (DM, HTN, Smoking, COPD, CAD, Cancer, CVA, ARF, Chemo, Hep., AIDS, mental health diagnosis, sleep apnea, morbid obesity)? @ -[None] Was patient admitted / discharged? Hospital course, mention meds given and route, prescriptions, significant lab abnormalities, going to OR and other pertinent info. @ -Discharged. This is a 87-year-old female who presents to the emergency department with right wrist pain. Patient had a thorough history and physical exam performed while in the ED. Heart rate regular rate and rhythm, lungs clear to auscultation bilaterally abdomen is soft and nontender. There is a rash across the lower abdomen is nontender. R wrist with mild erythema and mild tenderness. She was offered tylenol to which she declined.. I discussed the results in detail with the patient verbalized understanding, questions and concerns were addressed. The patient was discharged in stable condition. Case discussed with Dr. Paige Kristin who agrees with plan of care Undiagnosed new problem with uncertain prognosis? @ -[No] Drug Therapy requiring intensive monitoring for toxicity (Heparin, Nitro, Insulin, Cardizem)? @ -[No] Were any procedures done? @ -[No] Diagnosis/symptom? @ -R wirst pain Acute, or Chronic, or Acute on Chronic? @ -acute Uncomplicated (without systemic symptoms) or Complicated (systemic symptoms)? @ -[default] Side effects of treatment? @ -[No] Exacerbation, Progression, or Severe Exacerbation? @ -[No] Poses a threat to life or bodily function? How? (Chest pain, [place], [place], pneumonia, PE, COPD, DKA, ARF, appy, cholecystitis, CVA, Diverticulitis, Homicidal, Suicidal, threat to staff... and all critical care pts) @ -low likelihood Disposition Clinical Impression: Fall, Right wrist pain Disposition: HOME SELF-CARE Condition: Stable Instructions (If sedation given, give patient instructions): Fall Prevention for Older Adults (ED), Wrist Sprain (ED) Additional Instructions: Please return to the nearest emergency department if symptoms worsen or persist Is patient prescribed a controlled substance at d/c from ED?: No Referrals: Johnny Anderson MD [Primary Care Provider] - 1-2 days Mc Ansari MD [STAFF PHYSICIAN] - 1-2 days
== END 2023-02-12 13:29 | disposition home or self-care (01) ==
LOC: EC 10:57
DX: M25.531 Pain in right wrist (principal); E78.5 Hyperlipidemia, unspecified; I10 Essential (primary) hypertension; Z88.1 Allergy status to other antibiotic agents; Z88.2 Allergy status to sulfonamides; Z91.018 Allergy to other foods; Z88.8 Allergy status to other drugs, medicaments and biological substances; Z88.6 Allergy status to analgesic agent; Z95.5 Presence of coronary angioplasty implant and graft; Z90.710 Acquired absence of both cervix and uterus; Z90.89 Acquired absence of other organs; Z79.899 Other long term (current) drug therapy; Z79.82 Long term (current) use of aspirin; W18.30XA Fall on same level, unspecified, initial encounter; Y92.009 Unspecified place in unspecified non-institutional (private) residence as the place of occurrence of the external cause
CPT/HCPCS: 99283

== ENCOUNTER → 2023-02-12 | Outpatient (CLI) | payer MEDICARE ==
[2023-02-12 10:46] VITALS: BP 173/78; PULSE 62; RESP 18; TEMP 98.3
--- NOTE | 2023-02-12 10:52 | P.PN ---
Subjective Progress Note Date: 02/12/23 Principal diagnosis: DCIS left breast dx. 11-13-21 DCIS Deloris is an 87-year-old white female seen in consultation for Dr. Unger regarding a mammographic abnormality in her left breast. She had a bilateral mammogram performed on . This was felt to be incomplete secondary to focal asymmetry in the upper quadrant of the left breast. An ultrasound was performed of this area which recently revealed a 1 x 0.7 cm irregular hypoechoic avascular lesion at the 1 o'clock position. Ultrasound-guided core biopsy was recommended. Patient does not complain of any lumps masses or nodules of concern in either breast. She is not complaining of any nipple discharge or skin changes. She is not complaining of any recent trauma or infection in the breast. An ultrasound core biopsy was done on 11-13-21 which was low grade DCIS, ER+, WA+. She tolerated the procedure without difficulty. Her case was presented at [facility] and recommendation was made for a left breast needle localization and lumpectomy. The patient underwent a needle localization left breast lumpectomy and 3121. 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 She tolerated the procedure without difficulty. The lesion was ER/WA positive she is not taking any anti hormone therapy at this time. She declined radiatioin therapy. She was seen by DR. Bautista Lopez 06-16-22; patient is not taking any hormone blockers at this time She had a bilateral mammogram on 08-07-22 BIRAD 2 She states yesterday she felt dizzy and fell backwards hitting her right flank. She is going to follow up with her beater tender. She also is complaining of some pain in her right wrist. Caffeine: tea 2 cups/day nicotine: none chocolate: occasional Family history: father: ? type form this Hormonal history: Menarche: 16 , breast fed: no, age at first : about 29 menopause: hysterectomy at about 46 did not take ovaries, done for prolapse Surgical History: hysterectomy intestine section removed cataract ovary removed 2010 left breast lumpectomy Medical History: HTN Social History: nicotine: none alcohol: none drugs: none - Constitutional Constitutional: Denies chills, Denies fever - EENT Eyes: bilateral as per HPI, denies blurred vision, denies pain Ears: deny: decreased hearing, tinnitus Ears, nose, mouth and throat: Denies headache, Denies sore throat - Breasts Breasts: bilateral: as per HPI - Cardiovascular Comment: [place] 2019 Cardiovascular: Denies chest pain, Denies shortness of breath - Respiratory Respiratory: Denies cough - Gastrointestinal Gastrointestinal: Denies abdominal pain, Denies diarrhea, Denies nausea, Denies vomiting - Genitourinary (Female) Genitourinary: Denies dysuria, Denies hematuria - Menstruation Menstruation: Reports post hysterectomy - Musculoskeletal Comment: uses a walker one leg longer than the other Musculoskeletal: Denies myalgias - Integumentary Comment: stress induced hives Integumentary: Denies pruritus, Denies rash - Neurological Comment: history of seizure in 2001 Neurological: Denies numbness, Denies weakness - Psychiatric Psychiatric: Denies anxiety, Denies depression - Endocrine Endocrine: Denies fatigue, Denies weight change - Hematologic/Lymphatic Comment: none - Allergic/Immunologic Allergic/Immunologic: Reports as per HPI Objective - Constitutional General appearance: Present: cooperative - EENT ENT: Present: hearing grossly normal - Neck Neck: Present: normal ROM - Respiratory Respiratory: bilateral: CTA - Cardiovascular Rhythm: regular Heart sounds: normal: S1, S2 - Gastrointestinal General gastrointestinal: Present: soft - Integumentary Integumentary Comment(s): Mild ecchymosis right flank Swelling right wrist Integumentary: Present: normal turgor - Musculoskeletal Musculoskeletal Comment(s): uses a walker - Psychiatric Psychiatric: Present: A&O x's 3, appropriate affect, intact judgment & insight - Additional findings Additional findings: Breast Exam: BRA: not know size; probably medium sports bra Inspection: Bilateral scars from prior biopsy right and lumpectomy left Palpation: Right breast: fibrocystic changes, no dominant masses or nodules of concern Right axilla: No adenopathy of concern Left breast: Fibrocystic changes, no dominant masses or nodules of concern Left axilla: No adenopathy of concern Assessment and Plan Assessment: Impression: Left breast DCIS status post lumpectomy 01-21-22, patient did not have radiation or hormonal therapy; margin posteriorly was 1 mm but dissection was carried onto the pectoralis muscle Plan: Close surveillance Bilateral mammogram in July 2023 follow up after done dizzy and recent fall; discussed with Dr. Anderson office and recommended to go to ER CC: DR. Anderson
== END ==
LOC: WWCWWP 10:39
PROVIDERS: ATTEND Surgery
DX: D05.12 Intraductal carcinoma in situ of left breast (principal); I10 Essential (primary) hypertension; Z85.3 Personal history of malignant neoplasm of breast; Z88.1 Allergy status to other antibiotic agents; Z88.6 Allergy status to analgesic agent; Z91.018 Allergy to other foods; Z88.2 Allergy status to sulfonamides; Z88.5 Allergy status to narcotic agent; Z88.8 Allergy status to other drugs, medicaments and biological substances

== ENCOUNTER → 2023-08-06 | Outpatient (CLI) | payer MEDICARE ==
--- NOTE | 2023-08-06 15:21 | MM ---
Reason for Exam: Follow-up at short interval from prior study. Last screening mammogram was performed 12 month(s) ago. Patient History: Menarche at age 14. First Full-Term at age 30. Left ovary removed at age 78. Hysterectomy at age 43. Postmenopausal. Breast cancer, age 86. Estrogen for 18 years from age 58 until age 76. 1972, Benign Excisional Biopsy on the right side. 01/21/2022, Lumpectomy on the Left side. Malignant Core Biopsy. 11/13/2021, Malignant Core Biopsy on the left side. 07/23/2016, Benign Core Biopsy on the left side. Prior Study Comparison: 11/13/2021 Left Diagnostic Mammogram, [facility]. 01/21/2022 Left Diagnostic Mammogram, [facility]. 08/07/2022 Bilateral MG 3D diag mammo w/cad [facility], [facility]. Tissue Density: There are scattered fibroglandular densities. Findings: Analyzed By CAD. Postsurgical changes left breast. Microclip anterior left breast from prior biopsy. No significant change from prior exams. Overall Assessment: Benign, BI-RAD 2 Management: Screening Mammogram of both breasts in 1 year. . Results were given to the patient verbally at the time of exam. Patient should continue monthly self-breast exams. A clinical breast exam by your physician is recommended on an annual basis. This exam should not preclude additional follow-up of suspicious palpable abnormalities. Electronically signed and approved by: Ada Mar M.D. Radiologist
== END | disposition home or self-care (01) ==
LOC: RADMAMWWP 13:33
PROVIDERS: ATTEND Surgery
DX: R92.8 Other abnormal and inconclusive findings on diagnostic imaging of breast (principal); Z85.3 Personal history of malignant neoplasm of breast; Z78.0 Asymptomatic menopausal state
CPT/HCPCS: 77066; G0279; 77062

== ENCOUNTER → 2023-08-06 | Outpatient (CLI) | payer MEDICARE ==
--- NOTE | 2023-08-06 15:25 | P.PN ---
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 11-13-21 Deloris is an 87-year-old white female seen in consultation for Dr. Unger regarding a mammographic abnormality in her left breast. She had a bilateral mammogram performed on . This was felt to be incomplete secondary to focal asymmetry in the upper quadrant of the left breast. An ultrasound was performed of this area which recently revealed a 1 x 0.7 cm irregular hypoechoic avascular lesion at the 1 o'clock position. Ultrasound-guided core biopsy was recommended. Patient does not complain of any lumps masses or nodules of concern in either breast. She is not complaining of any nipple discharge or skin changes. She is not complaining of any recent trauma or infection in the breast. An ultrasound core biopsy was done on 11-13-21 which was low grade DCIS, ER+, NM+. She tolerated the procedure without difficulty. Her case was presented at tumor board and recommendation was made for a left breast needle localization and lumpectomy. The patient underwent a needle localization left breast lumpectomy on 3121. 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 She tolerated the procedure without difficulty. The lesion was ER/NM positive she is not taking any anti hormone therapy at this time. She declined radiatioin therapy. She was seen by DR. Bautista Lopez 06-16-22; patient is not taking any hormone blockers at this time She had a bilateral mammogram on 08-06-23 BIRAD 2, personally reviewed with Dr. Edwards, does not complain of any new lumps masses or nodules of concern in either breast. Caffeine: tea 2 cups/day nicotine: none chocolate: occasional Family history: father: ? type form this Hormonal history: Menarche: 16 , breast fed: no, age at first : about 29 menopause: hysterectomy at about 46 did not take ovaries, done for prolapse Surgical History: hysterectomy intestine section removed cataract ovary removed 2010 left breast lumpectomy Medical History: HTN Social History: nicotine: none alcohol: none drugs: none - Constitutional Constitutional: Denies chills, Denies fever - EENT Eyes: bilateral as per HPI, denies blurred vision, denies pain Ears: deny: decreased hearing, tinnitus Ears, nose, mouth and throat: Denies headache, Denies sore throat - Breasts Breasts: bilateral: as per HPI - Cardiovascular Comment: [place] 2019 Cardiovascular: Denies chest pain, Denies shortness of breath - Respiratory Respiratory: Denies cough - Gastrointestinal Gastrointestinal: Denies abdominal pain, Denies diarrhea, Denies nausea, Denies vomiting - Genitourinary (Female) Genitourinary: Denies dysuria, Denies hematuria - Menstruation Menstruation: Reports post hysterectomy - Musculoskeletal Comment: uses a walker one leg longer than the other Musculoskeletal: Denies myalgias - Integumentary Comment: stress induced hives Integumentary: Denies pruritus, Denies rash - Neurological Comment: history of seizure in 2001 Neurological: Denies numbness, Denies weakness - Psychiatric Psychiatric: Denies anxiety, Denies depression - Endocrine Endocrine: Denies fatigue, Denies weight change - Hematologic/Lymphatic Comment: none - Allergic/Immunologic Allergic/Immunologic: Reports as per HPI Objective - Vital Signs Vital signs: Intake & Output 08/05/23 08/06/23 08/06/23 18:59 06:59 18:59 Weight 58.967 kg - Constitutional General appearance: Present: cooperative - EENT Eyes: Present: EOMI ENT: Present: hearing grossly normal - Neck Neck: Present: normal ROM - Respiratory Respiratory: bilateral: CTA - Cardiovascular Rhythm: regular Heart sounds: normal: S1, S2 - Integumentary Integumentary: Present: normal turgor - Musculoskeletal Musculoskeletal Comment(s): uses a walker - Psychiatric Psychiatric: Present: A&O x's 3, appropriate affect, intact judgment & insight - Additional findings Additional findings: Breast Exam: patient examined sitting up BRA: not know size; probably medium sports bra Inspection: Bilateral scars from prior biopsy right and lumpectomy left Palpation: Right breast: fibrocystic changes, no dominant masses or nodules of concern Right axilla: No adenopathy of concern Left breast: Fibrocystic changes, no dominant masses or nodules of concern Left axilla: No adenopathy of concern Assessment and Plan Assessment: Impression: Left breast DCIS status post lumpectomy 01-21-22, patient did not have radiation or hormonal therapy; margin posteriorly was 1 mm but dissection was carried onto the pectoralis muscle bilateral mammogram 08-06-23 BIRAD2 Plan: Close surveillance Bilateral mammogram 08-06-23 BIRAD [address] Edwards CC: DR. Anderson
[2023-08-06 16:11] VITALS: BP 139/72; PULSE 76; RESP 17; TEMP 97.6
== END ==
LOC: WWCWWP 15:15
PROVIDERS: ATTEND Surgery
DX: D05.12 Intraductal carcinoma in situ of left breast (principal); I10 Essential (primary) hypertension; N64.89 Other specified disorders of breast; Z90.710 Acquired absence of both cervix and uterus; Z90.721 Acquired absence of ovaries, unilateral; Z85.3 Personal history of malignant neoplasm of breast; Z88.1 Allergy status to other antibiotic agents; Z88.8 Allergy status to other drugs, medicaments and biological substances; Z88.2 Allergy status to sulfonamides; Z88.5 Allergy status to narcotic agent; Z91.018 Allergy to other foods; Z79.899 Other long term (current) drug therapy

== ENCOUNTER → 2023-09-14 | Outpatient (CLI) | payer MEDICARE ==
--- NOTE | 2023-09-14 14:15 | XR ---
EXAMINATION TYPE: XR chest 2V DATE OF EXAM: 09/14/2023 2:11 PM CLINICAL INDICATION:Female, 88 years old with history of R00.2 PALPITATIONS; R42 Dizziness; PHH COMPARISON: Chest radiographs from TECHNIQUE: XR chest 2V Frontal and lateral views of the chest. FINDINGS: Lungs/Pleura: There is no evidence of pleural effusion, focal consolidation, or pneumothorax. Pulmonary vascularity: Pulmonary vascular congestion. Heart/mediastinum: Cardiomediastinal silhouette is enlarged and stable. Atherosclerotic calcificatio ns are seen in the aorta. Musculoskeletal: No acute osseous pathology. Multiple right-sided rib fractures are present. Scoliosi s changes of the spine. IMPRESSION: Cardiomegaly and mild pulmonary vascular congestion. Correlate with BNP for congestive heart failure.
== END | disposition home or self-care (01) ==
LOC: RADXRMAIN 13:50
PROVIDERS: ATTEND Family Medicine
DX: R09.89 Other specified symptoms and signs involving the circulatory and respiratory systems (principal); R05.9 Cough, unspecified; I51.7 Cardiomegaly
CPT/HCPCS: 71046

== ENCOUNTER 2024-03-11 11:52 | Emergency (ER) | payer MEDICARE ==
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
[2024-03-11 12:13] VITALS: TEMP 97.9
[2024-03-11 12:30] LABS: HCT 41.2 % (34.0-46.0); HGB 13.3 gm/dL (11.4-16.0); MCHC 32.3 g/dL (31.0-37.0); MCV 96.1 fL (80.0-100.0); Mean Platelet Volume 9.6; Platelet Count 163 k/uL (150-450); RBC 4.29 m/uL (3.80-5.40); RDW 13.7 % (11.5-15.5); WBC 6.6 k/uL (3.8-10.6)
[2024-03-11 12:41] LABS: ALT 22 U/L (4-34); AST 38 U/L (14-36); African American GFR (CKD) >90 (>60 ml/min/1.73 sqM); Albumin 3.7 g/dL (3.5-5.0); Alkaline Phosphatase 155 U/L (38-126); Anion Gap 5 mmol/L; Blood Urea Nitrogen 13 mg/dL (7-17); Carbon Dioxide 26 mmol/L (22-30); Chloride 104 mmol/L (98-107); Glucose 100 mg/dL (74-99); Magnesium 1.9 mg/dL (1.6-2.3); Non-African American GFR(CKD) 87 (>60 ml/min/1.73 sqM); Potassium 4.5 mmol/L (3.5-5.1); Sodium 135 mmol/L (137-145); Total Bilirubin 0.3 mg/dL (0.2-1.3); Total Protein 6.1 g/dL (6.3-8.2)
[2024-03-11 12:49] LABS: NT-Pro-B-Type Natriuretic Pept 1850 pg/mL
[2024-03-11 12:53] LABS: Partial Thromboplastin Time 24.4 sec (22.0-30.0); Prothrombin Time 10.8 sec (10.0-12.5)
--- NOTE | 2024-03-11 14:23 | XR ---
EXAMINATION TYPE: XR chest 2V DATE OF EXAM: 03/11/2024 2:05 PM CLINICAL INDICATION:Female, 88 years old with history of Cough/pain COMPARISON: Chest radiographs from 09/14/2022 TECHNIQUE: XR chest 2V Frontal and lateral views of the chest. FINDINGS: Lungs/Pleura: There is no evidence of pleural effusion, focal consolidation, or pneumothorax. Pulmonary vascularity: Unremarkable. Heart/mediastinum: Cardiomediastinal silhouette is unremarkable. Atherosclerotic calcifications are seen in the aorta. Musculoskeletal: No acute osseous pathology. Scoliosis changes throughout the spine. Multiple right-s ided remote appearing injuries. Other findings: None IMPRESSION: 1. No acute cardiopulmonary disease/process. 2. Severe scoliosis changes with remote right rib injuries.
--- NOTE | 2024-03-11 15:03 | US ---
EXAMINATION TYPE: US venous doppler duplex LE LT DATE OF EXAM: 03/11/2024 2:56 PM COMPARISON: US 2018 CLINICAL INDICATION: Female, 88 years old with history of swelling; Swelling. Patient takes baby aspi rin. SIDE PERFORMED: Left TECHNIQUE: The lower extremity deep venous system is examined utilizing real time linear array sonog traci with graded compression, doppler sonography and color-flow sonography. VESSELS IMAGED: Common Femoral Vein Deep Femoral Vein Greater Saphenous Vein * Femoral Vein Popliteal Vein Small Saphenous Vein * Proximal Calf Veins (* superficial vessels) Left Leg: Left CFV, femoral vein prox-distal, and DFV appear to compress incompletely. Question cardiac rehabilitation program director trace thrombus along vessel wall? Color flow seen within. Scanned left lateral thigh at patient's area of concern/swelling-no abnormalities seen at this area. IMPRESSION: 1. Chronic appearing deep vein thrombosis within the common femoral vein and femoral vein. 2. Streaky edema within the left lateral thigh.
[2024-03-11 17:05] VITALS: BP 118/65; PULSE 60; RESP 17
== END 2024-03-11 17:03 | disposition home or self-care (01) ==
LOC: EC 11:52
DX: I82.503 Chronic embolism and thrombosis of unspecified deep veins of lower extremity, bilateral (principal); I10 Essential (primary) hypertension; E78.5 Hyperlipidemia, unspecified; Z79.82 Long term (current) use of aspirin; Z79.899 Other long term (current) drug therapy; Z88.1 Allergy status to other antibiotic agents; Z88.2 Allergy status to sulfonamides; Z88.5 Allergy status to narcotic agent; Z88.6 Allergy status to analgesic agent; Z88.8 Allergy status to other drugs, medicaments and biological substances
CPT/HCPCS: 36415; 71046; 80053; 83735; 83880; 84484; 85027; 85610; 85730; 93005; 99284

== ENCOUNTER 2024-03-18 14:51 | Emergency (ER) | payer MEDICARE ==
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
[2024-03-18 15:41] VITALS: BP 161/90; PULSE 55; RESP 18; TEMP 97
[2024-03-18 16:02] LABS: Basophils % (A) 0 %; Eosinophils # (A) 0.2 k/uL (0-0.7); Eosinophils % (A) 3 %; HCT 39.9 % (34.0-46.0); HGB 12.7 gm/dL (11.4-16.0); Lymphocytes # (A) 1.4 k/uL (1.0-4.8); Lymphocytes % (A) 26 %; MCH 30.6 pg (25.0-35.0); MCHC 31.9 g/dL (31.0-37.0); Mean Platelet Volume 9.8; Monocytes # (A) 0.3 k/uL (0-1.0); Monocytes % (A) 6 %; Neutrophils # (A) 3.5 k/uL (1.3-7.7); Neutrophils % (A) 64 %; Platelet Count 152 k/uL (150-450); RBC 4.15 m/uL (3.80-5.40); RDW 13.7 % (11.5-15.5); WBC 5.4 k/uL (3.8-10.6)
--- NOTE | 2024-03-18 16:09 | XR ---
Left ankle HISTORY: Pain. COMPARISON: None TECHNIQUE: 3 views of the left ankle were obtained. FINDINGS: There is diffuse osteopenia. There is no fracture or dislocation. The ankle mortise is intact. There is marked soft tissue swelling over the lateral malleolus and mild soft tissue swelling over th e medial malleolus. IMPRESSION: Marked soft tissue ankle swelling but no fracture or dislocation.
[2024-03-18 16:30] LABS: ALT 20 U/L (4-34); AST 37 U/L (14-36); African American GFR (CKD) >90 (>60 ml/min/1.73 sqM); Albumin 3.5 g/dL (3.5-5.0); Alkaline Phosphatase 153 U/L (38-126); Anion Gap 4 mmol/L; Blood Urea Nitrogen 13 mg/dL (7-17); C Reactive Protein <0.5 mg/dL (<1.0); Calcium 8.9 mg/dL (8.4-10.2); Carbon Dioxide 29 mmol/L (22-30); Chloride 101 mmol/L (98-107); Glucose 94 mg/dL (74-99); Non-African American GFR(CKD) 89 (>60 ml/min/1.73 sqM); Potassium 4.3 mmol/L (3.5-5.1); Sodium 134 mmol/L (137-145); Total Bilirubin 0.2 mg/dL (0.2-1.3); Total Protein 5.8 g/dL (6.3-8.2)
[2024-03-18 16:36] LABS: NT-Pro-B-Type Natriuretic Pept 1850 pg/mL
--- NOTE | 2024-03-19 02:44 | XR ---
EXAMINATION TYPE: XR chest 2V DATE OF EXAM: 03/18/2024 9:30 PM CLINICAL INDICATION:Female, 88 years old with history of r/o chf; [facility] COMPARISON: 03/11/2024 TECHNIQUE: XR chest 2V Frontal and lateral views of the chest. FINDINGS: Lungs/Pleura: There is no evidence of pleural effusion, focal consolidation, or pneumothorax. Stable scarring at the left lung base. Pulmonary vascularity: Unremarkable. Heart/mediastinum: Stable CM silhouette. The heart is again enlarged. Partially calcified and moderat micah tortuous aorta likely following the spinal curvature. Musculoskeletal: No acute osseous pathology. Prominent S-shaped scoliotic changes throughout the spin e. Similar appearance of multiple right-sided remote rib fracture deformities. Other findings: None IMPRESSION: No acute findings, or significant interval change.
== END 2024-03-18 23:12 | disposition home or self-care (01) ==
LOC: EC 14:51
DX: I82.502 Chronic embolism and thrombosis of unspecified deep veins of left lower extremity (principal); Z88.1 Allergy status to other antibiotic agents; Z88.5 Allergy status to narcotic agent; Z88.8 Allergy status to other drugs, medicaments and biological substances; Z91.018 Allergy to other foods; Z88.2 Allergy status to sulfonamides
CPT/HCPCS: 36415; 71046; 80053; 83605; 83880; 85025; 86140

== ENCOUNTER 2024-04-05 12:16 | Emergency (ER) | payer MEDICARE ==
--- NOTE | 2024-04-05 12:49 | ED ---
SOB HPI - General Source: patient, RN notes reviewed Mode of arrival: ambulatory Limitations: no limitations <Lety Pulido - Last Filed: 04/05/24 12:47> - General Source: patient, RN notes reviewed Mode of arrival: ambulatory Limitations: no limitations - History of Present Illness MD Complaint: shortness of breath <Sera Mann - Last Filed: 04/05/24 17:42> - General Chief Complaint: Shortness of Breath Stated Complaint: SOB Time Seen by Provider: 04/05/24 12:31 - History of Present Illness Initial Comments: Quick note-this is an 88-year-old female presents emergency department chief complaint of chest pain and lower leg extremity swelling over the past few days. She has also been complaining of paroxysmal nocturnal dyspnea nausea and states that her left leg is more swollen than her right. She denies history of DVT or PE. Is not on blood thinners. Denies history of congestive heart failure. Family is at bedside states that patient has chronic lower extremity edema but this has worsened over the past few days. (Lety Pulido) This is an 88-year-old female who presents to the emergency department for shortness of breath. States that it started a couple of days ago. Shortness of breath is worse with exertion and when laying flat. She has swelling in both legs, but believes that it has gotten worse. She used to be on a water pill but discontinued it due to concern of long-term use causing problems with renal function. Reports a cough that is chronic but not particularly worse than normal. Above note lists chest pain, however patient currently denying chest pain in association with the shortness of breath. (Sera Mann) - Related Data Home Medications Medication Instructions Recorded Confirmed Aspirin EC [Ecotrin Low Dose] 81 mg PO DAILY 06/10/15 04/05/24 Multivitamins, Thera [Multivitamin 1 tab PO DAILY 06/10/15 04/05/24 (formulary)] Ascorbic Acid [Vitamin C] 500 mg PO DAILY 06/11/15 04/05/24 amLODIPine [Norvasc] 10 mg PO DAILY 04/09/19 04/05/24 Atorvastatin [Lipitor] 20 mg PO HS 10/04/19 04/05/24 Losartan Potassium [Cozaar] 12.5 mg PO DAILY 10/04/19 04/05/24 Garlic 100 mg PO DAILY 03/11/24 04/05/24 Phenytoin Oral Susp [Dilantin Oral 25 - 50 mg PO DIRECTED 03/11/24 04/05/24 Susp] Phenytoin Sodium Extended 100 mg PO DAILY@1200 03/11/24 04/05/24 [Dilantin] Phenytoin Sodium Extended 200 mg PO HS 03/11/24 04/05/24 [Dilantin] Triamterene 50 mg PO DAILY 03/11/24 04/05/24 Previous Rx's Medication Instructions Recorded Albuterol Sulfate [Albuterol 1 puff PO Q4-6H PRN #8.5 gm 04/05/24 Sulfate Hfa] Benzonatate [Tessalon Perle] 200 mg PO TID PRN #30 capsule 04/05/24 Furosemide [Lasix] 20 mg PO DAILY 7 Days #7 tab 04/05/24 Allergies Allergy/AdvReac Type Severity Reaction Status Date / Time levofloxacin [From Levaquin] Allergy Severe Anaphylaxis Verified 04/05/24 16:18 /seizure cephalexin Allergy Dyspnea Verified 04/05/24 16:18 clindamycin Allergy Dyspnea Verified 04/05/24 16:18 erythromycin base Allergy Rash/Hives Verified 04/05/24 16:18 [From Erythrocin] sulfamethoxazole Allergy Itching Verified 04/05/24 16:18 moxifloxacin HCl AdvReac Intermediate infection Verified 04/05/24 16:18 [From Vigamox] worse azithromycin AdvReac made Verified 04/05/24 16:18 infection worse. cetirizine HCl AdvReac sore Verified 04/05/24 16:18 [From Zyrtec-D] throat, upset stomach codeine AdvReac Unknown Verified 04/05/24 16:18 [From Tylenol-Codeine #3] codeine phosphate AdvReac Rash/Hives Verified 04/05/24 16:18 [From Tylenol-Codeine #3] fexofenadine HCl AdvReac Itching Verified 04/05/24 16:18 [From Cori-D] fluocinolone acetonide AdvReac Itching Verified 04/05/24 16:18 neomycin AdvReac itching in Verified 04/05/24 16:18 ears ofloxacin AdvReac Itching in Verified 04/05/24 16:18 ears propoxyphene AdvReac rash,consti Verified 04/05/24 16:18 [From Darvocet-N 100] pation pseudoephedrine HCl AdvReac Itching Verified 04/05/24 16:18 [From Cori-D] strawberry AdvReac Rash/Hives Verified 04/05/24 16:18 tramadol AdvReac CONSTIPATIO Verified 04/05/24 16:18 N RAW TOMATOES AdvReac Rash/Hives Uncoded 04/05/24 16:18 Review of Systems ROS Other: All systems not noted in ROS Statement are negative. <Lety Pulido - Last Filed: 04/05/24 12:47> ROS Other: All systems not noted in ROS Statement are negative. <Sera Mann - Last Filed: 04/05/24 17:42> ROS Statement: Those systems with pertinent positive or pertinent negative responses have been documented in the HPI. Past Medical History Past Medical History: Hyperlipidemia, Hypertension, Myocardial Infarction ([place]), Osteoarthritis (OA), Seizure Disorder Additional Past Medical History / Comment(s): Other hx: , abdnormal heart beat- PACs, seizure associated with anesthesia given for childbirth in the 1960s and a seizure in 2011 pt states was attributed to medication reaction in 2011, blood clot L side on top of skull age 16 yrs with surgery (struck by a rock), diverticulitis with bowel resection, benign colon polyps, bilateral tinnitis, arthritis bilateral knees. Last Myocardial Infarction Date:: ?2019 History of Any Multi-Drug Resistant Organisms: None Reported Past Surgical History: Bowel Resection, Heart Catheterization, Hysterectomy, Ort hopedic Surgery, Tonsillectomy Additional Past Surgical History / Comment(s): 05/22/20 cardiac cath-treat medically, L thigh femur fracture with nailing, D&C, R oophorectomy/sa lpingectomy d/t cysts, 1999 bowel resection d/t diverticulitis, D&C, laparotomy with R oophorectomy/salpingectomy d/t cyst, bilateral cataracts removed, colonoscopy/benign polypectomy, blood clot removed from scalp when pt was 16 yrs old. Past Anesthesia/Blood Transfusion Reactions: Previous Problems w/ Anesthesia, Motion Sickness Additional Past Anesthesia/Blood Transfusion Reaction / Comment(s): Seizure when they tried to put under for child , no hx blood transfusion Past Psychological History: No Psychological Hx Reported Smoking Status: Never smoker Past Alcohol Use History: None Reported Past Drug Use History: None Reported - Past Family History Father Family Medical History: Cancer Additional Family Medical History / Comment(s): Cancer "all over" Mother Family Medical History: No Reported History Additional Family Medical History / Comment(s): Mother was a smoker. <Lety Pulido - Last Filed: 04/05/24 12:47> General Exam Limitations: no limitations <Lety Pulido - Last Filed: 04/05/24 12:47> Limitations: no limitations General appearance: alert, in no apparent distress Head exam: Present: atraumatic, normocephalic, normal inspection Respiratory exam: Present: normal lung sounds bilaterally. Absent: respiratory distress, wheezes, rales, rhonchi, stridor Cardiovascular Exam: Present: regular rate, normal rhythm, normal heart sounds. Absent: systolic murmur, diastolic murmur, rubs, gallop, clicks Extremities exam: Present: other (Edema to the bilateral lower extremities. No tenderness or warmth.) Neurological exam: Present: alert, oriented X3, CN II-XII intact Psychiatric exam: Present: normal affect, normal mood Skin exam: Present: warm, dry, intact, normal color. Absent: rash <Sera Mann - Last Filed: 04/05/24 17:42> Course Vital Signs 04/05/24 04/05/24 04/05/24 12:33 15:13 16:17 Temperature 97.7 F Pulse Rate 57 L Respiratory 20 20 Rate Blood Pressure 128/77 O2 Sat by Pulse 95 94 L Oximetry 04/05/24 04/05/24 17:16 17:25 Temperature Pulse Rate 50 L 50 L Respiratory 16 16 Rate Blood Pressure O2 Sat by Pulse Oximetry Medical Decision Making - Lab Data Result diagrams: 04/05/24 14:32 04/05/24 14:32 - Radiology Data Radiology results: report reviewed, image reviewed <Sera Mann - Last Filed: 04/05/24 17:42> - Medical Decision Making This is an 88-year-old female who presents to the emergency department for shortness of breath. Was pt. sent in by a medical professional or institution? @ -No Did you speak to anyone other than the patient for history? @ -No Did you review nursing and triage notes? @ -Yes, and I agree, it is accurate with regards to the patient's symptoms. Were old charts reviewed? @ -No Differential Diagnosis? @ -Differential Dyspnea: Coronary syndrome, arrhythmia, tamponade, asthma, COPD, pulmonary embolism, pneumonia, pneumothorax, pulmonary effusion, anaphylaxis, diabetic ketoacidosis, flailed chest, pulmonary contusion, diaphragmatic rupture, anemia, neuromuscular, this is not meant to be an all-inclusive list. EKG interpreted by me (3pts min.)? @ -EKG interpreted by me demonstrating the following: Sinus rhythm. Ventricular rate 50 bpm, QRS duration 157 ms, QTc 435 ms. X-rays interpreted by me (1pt min.)? @ -Chest x-ray obtained, my interpretation identifies no localized consolidations or infiltrates. CT interpreted by me (1pt min.)? @ -Not obtained U/S interpreted by me (1pt. min.)? @ -Duplex ultrasound of the left lower extremity obtained. My interpretation identifies no evidence of a DVT. What testing was considered but not performed? (CT, X-rays, U/S, labs)? Why? @ -None What meds were considered but not given? Why? @ -None Did you discuss the management of the patient with other professionals? @ -No Did you reconcile home meds? @ -No Was smoking cessation discussed for >3mins.? @ -No Was critical care preformed (if so, how long)? @ -No Were there social determinants of health that impacted care today? How? (Homelessness, low income, unemployed, alcoholism, drug addiction, transportatio n, low edu. Level, literacy, decrease access to med. care, [facility], rehab)? @ -No Was there de-escalation of care discussed even if they declined? (Discuss DNR or withdrawal of care, Hospice)? @ -No What co-morbidities impacted this encounter? (DM, HTN, Smoking, COPD, CAD, Cancer, CVA, Hep., AIDS, mental health diagnosis, sleep apnea, morbid obesity)? @ -HLD, HTN Was patient admitted / discharged? @ -Discharged. Lab work unremarkable. D-dimer and troponin negative. BNP is negative based on her age and stable when compared with prior values. COVID, influenza, and RSV testing negative. Chest x-ray reveals no acute process. Duplex ultrasound of the left lower extremity reveals edema but no evidence of a DVT. Patient maintained adequate oxygen saturation during ambulation. The lowest her pulse ox got was 94 to 95%. She also exhibited no obvious respiratory distress. She was given a DuoNeb breathing treatment, which she did find helpful. Patient expressed interest in resuming lasix for several days to see if this can help with the swelling, but does not want to go back on it long- term. Prescription for 7-day course of Lasix provided along with Tessalon Perles and an albuterol inhaler. Ipratropium nasal spray provided in the emergency department to continue using up to 4 times daily to help postnasal drainage. Otherwise advised follow-up with her primary care provider. Undiagnosed new problem with uncertain prognosis? @ -None Drug Therapy requiring intensive monitoring for toxicity (Heparin, Nitro, Insulin, Cardizem)? @ -None Were any procedures done? @ -None Diagnosis/symptom? @ -Shortness of breath Acute, or Chronic, or Acute on Chronic? @ -Acute Uncomplicated (without systemic symptoms) or Complicated (systemic symptoms)? @ -Uncomplicated Side effects of treatment? @ -None Exacerbation, Progression, or Severe Exacerbation] @ -Not applicable Poses a threat to life or bodily function? @ -No Return precautions reviewed in depth, the patient is instructed to return to the emergency department with any new, worsening, or concerning symptoms. Patient verbalized understanding. This case was discussed in detail with the attending ED physician, Dr. Sheehan. Presentation, findings, and treatment plan discussed in detail as well. (Sera Mann) - Lab Data Lab Results 04/05/24 04/05/24 04/05/24 Range/Units 14:32 14:32 14:32 WBC 5.0 (3.8-10.6) k/uL RBC 4.40 (3.80-5.40) m/uL Hgb 13.5 (11.4-16.0) gm/dL Hct 43.0 (34.0-46.0) % MCV 97.6 (80.0-100.0) fL MCH 30.8 (25.0-35.0) pg MCHC 31.5 (31.0-37.0) g/dL RDW 13.7 (11.5-15.5) % Plt Count 140 L (150-450) k/uL MPV 10.1 Neutrophils % 65 % Lymphocytes % 24 % Monocytes % 7 % Eosinophils % 2 % Basophils % 1 % Neutrophils # 3.2 (1.3-7.7) k/uL Lymphocytes # 1.2 (1.0-4.8) k/uL Monocytes # 0.3 (0-1.0) k/uL Eosinophils # 0.1 (0-0.7) k/uL Basophils # 0.0 (0-0.2) k/uL PT 11.1 (10.0-12.5) sec INR 1.0 (<1.2) APTT 24.3 (22.0-30.0) sec D-Dimer 0.45 (<0.60) mg/L FEU Sodium 136 L (137-145) mmol/L Potassium 3.9 (3.5-5.1) mmol/L Chloride 105 (98-107) mmol/L Carbon Dioxide 28 (22-30) mmol/L Anion Gap 3 mmol/L BUN 12 (7-17) mg/dL Creatinine 0.54 (0.52-1.04) mg/dL Est GFR (CKD-EPI)AfAm >90 (>60 ml/min/1.73 sqM) Est GFR (CKD-EPI)NonAf 85 (>60 ml/min/1.73 sqM) Glucose 80 (74-99) mg/dL Plasma Lactic Acid Wiliam (0.7-2.0) mmol/L Calcium 8.8 (8.4-10.2) mg/dL Magnesium 1.9 (1.6-2.3) mg/dL Total Bilirubin 0.3 (0.2-1.3) mg/dL AST 31 (14-36) U/L ALT 17 (4-34) U/L Alkaline Phosphatase 155 H (38-126) U/L Troponin I (0.000-0.034) ng/mL NT-Pro-B Natriuret Pep 1720 pg/mL Total Protein 5.9 L (6.3-8.2) g/dL Albumin 3.6 (3.5-5.0) g/dL Influenza Type A (PCR) (Not Detectd) Influenza Type B (PCR) (Not Detectd) RSV (PCR) (Not Detectd) SARS-CoV-2 (PCR) (Not Detectd) 04/05/24 04/05/24 04/05/24 Range/Units 14:32 14:32 15:42 WBC (3.8-10.6) k/uL RBC (3.80-5.40) m/uL Hgb (11.4-16.0) gm/dL Hct (34.0-46.0) % MCV (80.0-100.0) fL MCH (25.0-35.0) pg MCHC (31.0-37.0) g/dL RDW (11.5-15.5) % Plt Count (150-450) k/uL MPV Neutrophils % % Lymphocytes % % Monocytes % % Eosinophils % % Basophils % % Neutrophils # (1.3-7.7) k/uL Lymphocytes # (1.0-4.8) k/uL Monocytes # (0-1.0) k/uL Eosinophils # (0-0.7) k/uL Basophils # (0-0.2) k/uL PT (10.0-12.5) sec INR (<1.2) APTT (22.0-30.0) sec D-Dimer (<0.60) mg/L FEU Sodium (137-145) mmol/L Potassium (3.5-5.1) mmol/L Chloride (98-107) mmol/L Carbon Dioxide (22-30) mmol/L Anion Gap mmol/L BUN (7-17) mg/dL Creatinine (0.52-1.04) mg/dL Est GFR (CKD-EPI)AfAm (>60 ml/min/1.73 sqM) Est GFR (CKD-EPI)NonAf (>60 ml/min/1.73 sqM) Glucose (74-99) mg/dL Plasma Lactic Acid Wiliam 1.0 (0.7-2.0) mmol/L Calcium (8.4-10.2) mg/dL Magnesium (1.6-2.3) mg/dL Total Bilirubin (0.2-1.3) mg/dL AST (14-36) U/L ALT (4-34) U/L Alkaline Phosphatase (38-126) U/L Troponin I <0.012 (0.000-0.034) ng/mL NT-Pro-B Natriuret Pep pg/mL Total Protein (6.3-8.2) g/dL Albumin (3.5-5.0) g/dL Influenza Type A (PCR) Not Detected (Not Detectd) Influenza Type B (PCR) Not Detected (Not Detectd) RSV (PCR) Not Detected (Not Detectd) SARS-CoV-2 (PCR) Not Detected (Not Detectd) Disposition <VidadanielleLety - Last Filed: 04/05/24 12:47> Is patient prescribed a controlled substance at d/c from ED?: No Time of Disposition: 17:29 <Sera Mann - Last Filed: 04/05/24 17:42> Clinical Impression: Shortness of breath, Dependent edema Disposition: HOME SELF-CARE Instructions (If sedation given, give patient instructions): Dyspnea (ED), Shortness of Breath (ED) Additional Instructions: Return to the emergency department with any new, worsening, or concerning symptoms. You can use albuterol inhaler every 4-6 hours as needed for shortness of breath. You can take the Tessalon Perles up to every 8 hours as needed for coughing. You can use the ipratropium nasal spray up to 4 times daily as well to help with postnasal drip/sinus drainage. Take the Lasix daily for 7 days. Continue to keep the legs elevated and wear compression stockings. Follow up with your primary care provider in 1-2 days. Prescriptions: Albuterol Sulfate [Albuterol Sulfate Hfa] 1 puff PO Q4-6H PRN #8.5 gm PRN Reason: Shortness Of Breath Furosemide [Lasix] 20 mg PO DAILY 7 Days #7 tab Benzonatate [Tessalon Perle] 200 mg PO TID PRN #30 capsule PRN Reason: Cough Referrals: Jhonny Anderson MD [Primary Care Provider] - 1-2 days
--- NOTE | 2024-04-05 14:47 | XR ---
EXAMINATION TYPE: XR chest 2V DATE OF EXAM: 04/05/2024 2:10 PM CLINICAL INDICATION:Female, 88 years old with history of difficulty breathing; COMPARISON: Chest radiographs from 03/18/2024 TECHNIQUE: XR chest 2V Frontal and lateral views of the chest. FINDINGS: Lungs/Pleura: There is no evidence of pleural effusion, focal consolidation, or pneumothorax. Pulmonary vascularity: Unremarkable. Heart/mediastinum: Cardiomediastinal silhouette is enlarged and stable. Atherosclerotic calcificatio ns are seen in the aorta. Musculoskeletal: No acute osseous pathology. Remote right-sided rib injuries. Other findings: None IMPRESSION: No acute cardiopulmonary disease/process.
--- NOTE | 2024-04-05 15:18 | US ---
EXAMINATION TYPE: US venous doppler duplex LE LT DATE OF EXAM: 04/05/2024 2:51 PM COMPARISON: NONE CLINICAL INDICATION: Female, 88 years old with history of LE swelling, redness; Patient takes baby as pirin. Swelling and redness x 3 weeks. Patient's area of concern is in left lateral thigh. SIDE PERFORMED: Left TECHNIQUE: The lower extremity deep venous system is examined utilizing real time linear array sonog traci with graded compression, doppler sonography and color-flow sonography. VESSELS IMAGED: Common Femoral Vein Deep Femoral Vein Greater Saphenous Vein * Femoral Vein Popliteal Vein Small Saphenous Vein * Proximal Calf Veins (* superficial vessels) Left Leg: No evidence of DVT. Great amount of edema seen from upper left lateral thigh down through lateral calf. IMPRESSION:
[2024-04-05 15:28] LABS: Basophils % (A) 1 %; Eosinophils # (A) 0.1 k/uL (0-0.7); Eosinophils % (A) 2 %; HGB 13.5 gm/dL (11.4-16.0); Lymphocytes # (A) 1.2 k/uL (1.0-4.8); Lymphocytes % (A) 24 %; MCH 30.8 pg (25.0-35.0); MCHC 31.5 g/dL (31.0-37.0); MCV 97.6 fL (80.0-100.0); Mean Platelet Volume 10.1; Monocytes # (A) 0.3 k/uL (0-1.0); Monocytes % (A) 7 %; Neutrophils # (A) 3.2 k/uL (1.3-7.7); Neutrophils % (A) 65 %; Platelet Count 140 k/uL (150-450); RDW 13.7 % (11.5-15.5)
[2024-04-05 15:44] LABS: ALT 17 U/L (4-34); AST 31 U/L (14-36); African American GFR (CKD) >90 (>60 ml/min/1.73 sqM); Albumin 3.6 g/dL (3.5-5.0); Alkaline Phosphatase 155 U/L (38-126); Anion Gap 3 mmol/L; Blood Urea Nitrogen 12 mg/dL (7-17); Calcium 8.8 mg/dL (8.4-10.2); Carbon Dioxide 28 mmol/L (22-30); Chloride 105 mmol/L (98-107); Glucose 80 mg/dL (74-99); Magnesium 1.9 mg/dL (1.6-2.3); Non-African American GFR(CKD) 85 (>60 ml/min/1.73 sqM); Potassium 3.9 mmol/L (3.5-5.1); Sodium 136 mmol/L (137-145); Total Bilirubin 0.3 mg/dL (0.2-1.3); Total Protein 5.9 g/dL (6.3-8.2)
[2024-04-05 15:53] LABS: NT-Pro-B-Type Natriuretic Pept 1720 pg/mL
[2024-04-05 15:54] LABS: Partial Thromboplastin Time 24.3 sec (22.0-30.0); Prothrombin Time 11.1 sec (10.0-12.5)
[2024-04-05] MEDS: BENZONATATE 100 MG CAP PO STA (17:02)
[2024-04-05] MEDS: IPRATROPIUM BROMIDE 0.06% NASAL SPRAY (15 ML) NASAL STA (17:09)
[2024-04-05] MEDS: IPRATROPIUM-ALBUTEROL 3 ML NEB INHALATION STA (17:16)
[2024-04-05 18:14] VITALS: BP 161/84; PULSE 56; RESP 18; TEMP 98.1
== END 2024-04-05 17:53 | disposition home or self-care (01) ==
LOC: EC 12:16
DX: R60.9 Edema, unspecified (principal); R06.02 Shortness of breath; I44.7 Left bundle-branch block, unspecified; Z88.1 Allergy status to other antibiotic agents; Z88.5 Allergy status to narcotic agent; Z88.6 Allergy status to analgesic agent; Z88.2 Allergy status to sulfonamides; Z88.8 Allergy status to other drugs, medicaments and biological substances; Z91.018 Allergy to other foods
CPT/HCPCS: 36415; 71046; 80053; 83605; 83735; 83880; 84484; 85025; 85379; 85610; 85730; 87636; 94640; 99285

== ENCOUNTER → 2024-09-16 | Outpatient (CLI) | payer MEDICARE ==
--- NOTE | 2024-09-16 13:43 | MM ---
Reason for Exam: Hx of breast cancer, conservation therapy. Last mammogram was performed 1 year(s) and 1 month(s) ago. Patient History: Menarche at age 14. First Full-Term at age 30. Left ovary removed at age 78. Hysterectomy at age 43. Postmenopausal. Breast cancer, left, age 86. Estrogen for 18 years from age 58 until age 76. 1972, Benign Excisional Biopsy on the right side. 01/21/2022, Lumpectomy on the Left side. Malignant Core Biopsy. 11/13/2021, Malignant Core Biopsy on the left side. 07/23/2016, Benign Core Biopsy on the left side. Prior Study Comparison: 08/02/2021 Bilateral Screening Mammogram, [facility]. 08/27/2021 Left Diagnostic Mammogram, [facility]. 08/27/2021 Left Diagnostic Ultrasound, [facility]. 11/13/2021 Left Diagnostic Mammogram, [facility]. 01/21/2022 Left Diagnostic Mammogram, [facility]. 08/07/2022 Bilateral MG 3D diag mammo w/cad LAURY, [facility]. 08/06/2023 Bilateral MG 3D diag mammo w/cad LAURY, [facility]. Tissue Density: The breasts are heterogeneously dense, which may obscure small masses. Findings: Analyzed By CAD. Postoperative lumpectomy changes left breast. No evidence for mass or distortion in the interval. No suspicious microcalcifications. Overall Assessment: Benign, BI-RAD 2 Management: Diagnostic Mammogram of both breasts in 1 year. . Results were given to the patient verbally at the time of exam. Patient should continue monthly self-breast exams. A clinical breast exam by your physician is recommended on an annual basis. This exam should not preclude additional follow-up of suspicious palpable abnormalities. Note on Chelsea scores and lifetime risk: 1. A Chelsea score greater than 3% is considered moderate risk. If this is the case, consider specialist referral to assess eligibility for a risk reducing agent. 2. If overall lifetime risk for the development of breast cancer is 20% or higher, the patient may qualify for future screening with alternating mammogram and breast MRI. [facility], , 09/16/2024 1:39 PM. Electronically signed and approved by: Brooks Rolle M.D. Radiologis
== END | disposition home or self-care (01) ==
LOC: RADMAMWWP 13:09
PROVIDERS: ATTEND Surgery
CPT/HCPCS: 77062; 77066

== ENCOUNTER → 2024-10-11 | Day surgery (SDC) | payer MEDICARE ==
[~2024-10-11] MED LIST changes: -HEPARIN SODIUM,PORCINE/PF 5,000 UNIT/0.5 ML SYRINGE SQ PRN; -HYDROmorphone 0.5 MG/0.5 ML SYRINGE IVP PRN; -LACTATED RINGERS 1,000 ML IV SCH; -ONDANSETRON 4 MG/2 ML VIAL IVP ONE; -Pre Op ABX Message 1 EACH MISC MISCELLANE ONE; +SODIUM CHLORIDE 0.9% 1,000 ML IV SCH; +ceFAZolin 1 GM in SODIUM CHLORIDE 0.9% IRRIG BTL 250 ML IRRIGATION PRN
--- NOTE | 2024-10-11 16:13 | P.HPCAR ---
History of Present Illness This is Dr. Farris dictating an H/P on this patient The patient was interviewed and examined IMPRESSION / ASSESSMENT: Scabs over left pectoral area and the back likely related to bedbugs and scabies Discussed with Dr. Anderson 88-year-old female with sick sinus syndrome and junctional escape rhythm Worsening congestive heart failure, recurrent Awaiting dual-chamber pacemaker with left bundle pacing to minimize heart failure in the future PLAN: In view of the skin lesions in the upper chest and back I called Dr. Anderson, cancel the case for now, discussed this with the family in detail and with the patient Dr. Anderson will send APS to her residence. He stated that she had to be treated for scabies in the past. He will address the issue of bedbugs as well as scabies and the son will give me a call when the skin lesions of healed up HPI Patient came in today for a dual-chamber pacemaker implantation with conduction system pacing. However she had scabs on his skin on the chest wall as well as on the upper back. It is quite likely she has bedbugs at home and may have underlying scabies The procedure was canceled She has a history of hypertension nonischemic cardiomyopathy and junctional bradycardia ROS: No fever chills or rigors, no cough, phlegm or expectoration, no nausea, vomiting or diarrhea, no hematuria, dysuria, no musculoskeletal complaints, no strokes or seizures, Multiple skin lesions on the chest and upper back REVIEW OF LABS, ECG & MEDICAL DATA Atorvastatin aspirin losartan triamterene and amlodipine transfer tech Physical Exam Vitals: Intake and Output 10/11/24 10/11/24 10/11/24 06:59 14:59 22:59 Other: Weight 55.6 kg Past Medical History Past Medical History: Cancer, Hyperlipidemia, Hypertension, Myocardial Infarction ([place]), Osteoarthritis (OA), Seizure Disorder Additional Past Medical History / Comment(s): Other hx: , abdnormal heart beat- PACs, seizure associated with anesthesia given for childbirth in the 1960s and a seizure in 2011 pt states was attributed to medication reaction in 2011, blood clot L side on top of skull age 16 yrs with surgery (struck by a rock), diverticulitis with bowel resection, benign colon polyps, bilateral tinnitis, arthritis bilateral knees. breast cancer See dr Farris's h & p Last Myocardial Infarction Date:: ?2019 History of Any Multi-Drug Resistant Organisms: None Reported Past Surgical History: Bowel Resection, Heart Catheterization, Hysterectomy, Orthopedic Surgery, Tonsillectomy Additional Past Surgical History / Comment(s): 05/22/20 cardiac cath-treat medically, L thigh femur fracture with nailing, D&C, R oophorectomy/salpingectomy d/t cysts, 1999 bowel resection d/t diverticulitis, D&C, laparotomy with R oophorectomy/salpingectomy d/t cyst, bilateral cataracts removed, colonoscopy/benign polypectomy, blood clot removed from scalp when pt was 16 yrs old. Past Anesthesia/Blood Transfusion Reactions: Previous Problems w/ Anesthesia, Motion Sickness Additional Past Anesthesia/Blood Transfusion Reaction / Comment(s): Seizure when they tried to put under for child , no hx blood transfusion Smoking Status: Never smoker - Past Family History Father Family Medical History: Cancer Additional Family Medical History / Comment(s): Cancer "all over" Mother Family Medical History: No Reported History Additional Family Medical History / Comment(s): Mother was a smoker. Physical Examination Intake and Output 10/11/24 10/11/24 10/11/24 06:59 14:59 22:59 Other: Weight 55.6 kg Results Current Medications Generic Name Dose Route Start Last Admin Trade Name Freq PRN Reason Stop Dose Admin Sodium Chloride 1,000 mls @ 50 mls/hr 10/11/24 07:41 Saline 0.9% IV 11/10/24 07:40 .Q20H [place]PE Sodium Chloride 1,000 mls @ 50 mls/hr 10/11/24 07:41 Saline 0.9% IV 11/10/24 07:40 .Q20H [place] Cefazolin Sodium 2 gm/ Sodium 50 mls @ 100 mls/hr 10/11/24 07:41 Chloride IVPB 10/11/24 23:00 ONCE PRN Pre-Op Cefazolin Sodium 1 gm/ Sodium 250 mls @ 250 mls/hr 10/11/24 07:41 Chloride IRRIGATION 10/11/24 23:00 ONCE PRN PRE-OP Intake and Output 10/11/24 10/11/24 10/11/24 06:59 14:59 22:59 Other: Weight 55.6 kg Patient Weight 10/12/24 06:59 Weight 55.6 kg
[2024-10-11 19:48] VITALS: BP 161/72; PULSE 60; RESP 14; TEMP 98.9
== END ==
LOC: CATHEP 14:00
PROVIDERS: ATTEND Internal Medicine Clinical Cardiac Electrophysiology
DX: Z53.8 Procedure and treatment not carried out for other reasons (principal); I49.5 Sick sinus syndrome; B86 Scabies; E78.5 Hyperlipidemia, unspecified; G40.909 Epilepsy, unspecified, not intractable, without status epilepticus; I50.9 Heart failure, unspecified; I42.8 Other cardiomyopathies; I25.2 Old myocardial infarction; I11.0 Hypertensive heart disease with heart failure; Z85.3 Personal history of malignant neoplasm of breast; Z86.0100 Personal history of colon polyps, unspecified; Z90.721 Acquired absence of ovaries, unilateral; Z90.79 Acquired absence of other genital organ(s); Z90.710 Acquired absence of both cervix and uterus

== ENCOUNTER 2025-06-13 15:59 | Day surgery (SDC) | payer MEDICARE ==
[2025-06-13] MEDS: IV FLUID CONTINUATION 1,000 ML IV ONE (16:08)
[2025-06-13 16:29] LABS: Basophils # (A) 0.02 10*3/uL (0.00-0.10); Basophils % (A) 0.3 %; Eosinophils # (A) 0.10 10*3/uL (0.04-0.35); Eosinophils % (A) 1.7 %; HCT 43.4 % (37.2-46.3); HGB 14.5 g/dL (12.0-15.0); Immature Platelet Fraction 6.3 % (1.1-6.1); Lymphocytes # (A) 1.56 10*3/uL (0.90-5.00); Lymphocytes % (A) 26.6 %; MCH 31.1 pg (27.0-32.0); MCHC 33.4 g/dL (32.0-37.0); MCV 93.1 fL (80.0-97.0); Monocytes # (A) 0.49 10*3/uL (0.20-1.00); Monocytes % (A) 8.4 %; Neutrophils # (A) 3.68 10*3/uL (1.80-7.70); Neutrophils % (A) 62.8 %; Platelet Count 122 10*3/uL (140-440); RBC 4.66 10*6/uL (4.10-5.20); RDW 13.0 % (11.5-14.5); WBC 5.86 10*3/uL (4.50-10.00)
[2025-06-13] MEDS ORDERED: MIDAZOLAM 2 MG/2 ML VIAL ONE (16:44)
[2025-06-13] MEDS ORDERED: fentaNYL (PF) 50 MCG/ML 2 ML AMP ONE (16:44)
[2025-06-13 16:47] LABS: African American GFR (CKD) >90 (>60 ml/min/1.73 sqM); Anion Gap 9 mmol/L; Blood Urea Nitrogen 20 mg/dL (7-17); Calcium 10.1 mg/dL (8.4-10.2); Carbon Dioxide 31 mmol/L (22-30); Chloride 97 mmol/L (98-107); Glucose 98 mg/dL (74-99); Non-African American GFR(CKD) 86 (>60 ml/min/1.73 sqM); Potassium 4.3 mmol/L (3.5-5.1); Sodium 137 mmol/L (137-145)
[2025-06-13] MEDS: VANCOMYCIN 1,000 MG in SODIUM CHLORIDE 0.9% 250 ML IVPB STA (17:07)
[2025-06-13] MEDS: IOPAMIDOL-370 100ML BTL INJ ONE (17:20)
[2025-06-13] MEDS: ROPIVACAINE 5 MG/ML 30 ML VIAL MISCELLANE ONE (17:48)
[2025-06-13] MEDS: LIDOCAINE 1% INJ 10MG/ML (20 ML MDV) SQ ONE (17:48)
[2025-06-13] MEDS: ceFAZolin 1 GM in SODIUM CHLORIDE 0.9% IRRIG BTL 250 ML IRRIGATION PRN (17:52)
[2025-06-13] MEDS: HEPARIN SODIUM,PORCINE (1 ML) 2,500 UNIT in SODIUM CHLORIDE 0.9% 250 ML IRRIGATION ONE (17:53)
--- NOTE | 2025-06-13 19:00 | P.PRLE ---
RE: Deloris Vail Dear Apr underwent upgrade to a dual-chamber pacemaker. I have programmed her such that she will have minimal RV pacing and mostly atrially based pacing. Hopefully this helps with her heart failure symptoms. She tolerated procedure well without any acute complications Thank you for entrusting me with the care of the patient Warm regards Sincerely Jose Alberto Farris
--- NOTE | 2025-06-13 19:06 | P.EPPROC ---
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 The single-chamber pacemaker generator was explanted, a dual-chamber pacemaker generator was implanted. A new atrial lead was implanted in the right atrial appendage, passive lead. Details Patient was brought to the EP lab in a fasting state. Written informed consent was obtained prior to the procedure. Conscious sedation provided by SLITTER CREASER SLOTTER OPERATOR. IV antibiotics administered including IV Kefzol and vancomycin. Local anesthesia administered. A 4 cm incision made in the pectoral area. Subfascial pocket made. The old pocket was subcutaneous and just below the clavicle. A new subfascial pocket was made in the more caudal location. Venous accesses obtained. Venous sheaths placed. Medtronic passive 45 cm atrial lead placed in the right heart. The single-chamber pacemaker that been previously implanted was programmed to to VOO mode at 40 beats a minute during this part of the post. Atrial lead position the right atrial appendage. P waves 2.6 mV, pacing impedance 703 ohms, pacing threshold 0.5 V at 0.4 ms. Lead in stable position in the right atrial appendage Chronic RV lead position in the RV apex. R waves 11.6 mV, pace impedance 551 ohms and pacing threshold 0.75 V at 0.4 minutes New device ceo ziff davis: Medtronic Mia XT DR LOAIZA Old Medtronic single-chamber pacemaker explanted Dual-chamber pacemaker device connected to the leads and placed in the subfascial pocket Patient tolerated the procedure well without acute complications. Antibiotic pouch placed Device secured to the pectoralis muscle and placed in the new caudally located subfascial pocket. Hemostasis assured wound closed in 3 layers and dressed per protocol Pacemaker programming: MVP mode with a long AV delay of 400 to minimize RV pacing [id number] 60-100 bpm AV node Wenckebach noted when pacing the atrium at 100 beats a minute
[2025-06-13] MEDS: LACTATED RINGERS 1,000 ML IV SCH (20:10)
[2025-06-13] MEDS: SODIUM CHLORIDE 0.9% 1,000 ML IV SCH (20:10)
[2025-06-13] MEDS: METOPROLOL TARTRATE 50 MG TAB PO SCH (20:51)
[2025-06-13] MEDS: ACETAMINOPHEN IV (For NPO) 1,000 MG in EMPTY BAG 1 BAG IVPB ONE (20:56)
[2025-06-13] MEDS: PHENYTOIN SODIUM EXTENDED 100 MG CAP PO SCH (23:16)
[2025-06-14] MEDS: ACETAMINOPHEN TAB 325 MG TAB PO PRN (06:33)
--- NOTE | 2025-06-14 07:26 | XR ---
EXAMINATION TYPE: XR chest 2V DATE OF EXAM: 06/14/2025 7:21 AM COMPARISON: 01/10/2025 CLINICAL INDICATION: Female, 89 years old with history of Lead placement check, , TECHNIQUE: Frontal and lateral views FINDINGS: The heart remains moderately enlarged. Atherosclerotic arch calcifications. Hyperinflation. Old right -sided rib fracture deformities. S-shaped scoliotic deformity. Improvement in the appearance of the i nterstitium and patchy opacities. No sizable pleural effusion. Left anterior chest wall pacemaker gen erator with right atrial and right ventricular leads. IMPRESSION: Redemonstration moderate cardiomegaly and COPD. The interstitium shows considerable improvement. S-sh aped scoliosis. [facility], , 06/14/2025 7:24 AM
[2025-06-14] MEDS ORDERED: ATORVASTATIN 20 MG TAB PO SCH (09:00)
[2025-06-14] MEDS ORDERED: FUROSEMIDE 40 MG TAB PO SCH (09:00)
[2025-06-14] MEDS: SPIRONOLACTONE 25 MG TAB PO SCH (09:11)
[2025-06-14] MEDS: LOSARTAN 25 MG TAB PO SCH (09:12)
[2025-06-14 13:58] VITALS: BMI 21.9
[2025-06-14 15:01] VITALS: BP 118/57; PULSE 57; RESP 17; TEMP 98.9
[2025-06-14] MEDS: ASPIRIN 81 MG PO SCH (15:38)
== END 2025-06-14 16:59 | disposition home or self-care (01) ==
LOC: CATHEP 15:59 → 6NMEDSUR 18:48 → CATHEP 06-14 16:59
PROVIDERS: ATTEND Internal Medicine Clinical Cardiac Electrophysiology
DX: I42.8 Other cardiomyopathies (principal); I49.5 Sick sinus syndrome; I34.0 Nonrheumatic mitral (valve) insufficiency; I11.0 Hypertensive heart disease with heart failure; I50.32 Chronic diastolic (congestive) heart failure; J44.9 Chronic obstructive pulmonary disease, unspecified; E78.5 Hyperlipidemia, unspecified; Z95.0 Presence of cardiac pacemaker; Z88.1 Allergy status to other antibiotic agents; Z88.6 Allergy status to analgesic agent; Z88.2 Allergy status to sulfonamides; Z88.8 Allergy status to other drugs, medicaments and biological substances; Z79.02 Long term (current) use of antithrombotics/antiplatelets; Z79.82 Long term (current) use of aspirin; Z79.899 Other long term (current) drug therapy
CPT/HCPCS: 33214; 80048; 84443; 85025; 71046; C1769 ×2; C1892; C1898; C1785; J1644; J0690; J2003; J2795; J0131; Q9967; J3373